=== PATIENT | male | born 1970 | race Caucasian/White ===

== ENCOUNTER 2017-10-01 08:04 | Inpatient (IN) | payer OTHER ==
[2017-10-01] MEDS ORDERED: Succinylcholine Chloride 20 MG/ML 10 ml SYRINGE FS ONE (08:15)
[2017-10-01] MEDS ORDERED: Propofol 1,000 MG/100 ML VIAL IV ONE ×2 (08:28→13:49)
[2017-10-01 08:42] LABS: Hematocrit 45.8 % (42.0-52.0); Red Blood Cell (RBC) Count 4.69 mill/uL (4.70-6.10); White Blood Cell (WBC) Count 16.9 thou/uL (4.8-10.8)
[2017-10-01 08:46] LABS: Prothrombin Time 13.3 SEC (12.0-14.7)
[2017-10-01] MEDS ORDERED: Midazolam HCl 5 mg/ml Vial ONE (08:48)
[2017-10-01 08:51] LABS: PTT 22.8 SEC (22.9-36.1)
[2017-10-01 08:52] LABS: ALT (SGPT) 28 U/L (8-55); AST (SGOT) 28 U/L (5-34); Alkaline Phosphatase 112 U/L (40-150); Anion Gap 20 mmol/L (10-20); BUN (Urea Nitrogen) 14 mg/dL (8.9-20.6); Bilirubin, Total 0.3 mg/dL (0.2-1.2); CK (CPK) 265 U/L (30-200); Calc. Creatinine Clearance 0 mL/min (70-130); Calcium 9.1 mg/dL (7.8-10.44); Carbon Dioxide 20 mmol/L (22-29); Chloride 103 mmol/L (98-107); Estimated GFR-MDRD 48; Globulin 3.5 g/dL (2.4-3.5); Lactic Acid - Sepsis 6.7 mmol/L (0.5-2.2); Protein, Total 8.1 g/dL (6.0-8.3)
[2017-10-01 08:56] LABS: Troponin I Less than 0.010 ng/mL (< 0.028)
[2017-10-01] MEDS ORDERED: Fentanyl 20 MCG/ML 250 ML ONE (09:25)
[2017-10-01 09:31] LABS: Band 4 % (5-11); Metamyelocyte 1 % (0-0); Reactive Lymphocytes 3 % (0-10)
--- NOTE | 2017-10-01 09:31 | CT ---
CT OF THE BRAIN WITHOUT CONTRAST: Date: 10/01/17 COMPARISON: None. HISTORY: Altered mental status with vomiting. TECHNIQUE: Multiple contiguous axial images were obtained in a CT of the brain without contrast. FINDINGS: The brain is normal in morphology and attenuation without focal lesions or confluent areas of infarct ion. There is no evidence of hydrocephalus, intracranial hemorrhage, or extra-axial fluid collection. The calvarium and overlying soft tissues are unremarkable. The visualized paranasal sinuses and masto id air cells are well aerated. IMPRESSION: No evidence of acute intracranial abnormality. POS: [facility]
[2017-10-01 09:32] LABS: Neutrophil 42 % (42-75)
[2017-10-01 09:39] LABS: Oxyhemoglobin 97.5 % (94.0-97.0); Sodium 143 mmol/L (135-148)
[2017-10-01 09:42] LABS: Mechanical Tidal Volume 500 ml; Mode TRANSPORT VENT; Modified Allen's Test POSITIVE; Vent YES
--- NOTE | 2017-10-01 09:47 | CT ---
CT OF THE CHEST WITH CONTRAST CT OF THE ABDOMEN AND PELVIS WITH CONTRAST: Date: 10/01/17 COMPARISON: None. HISTORY: Altered mental status with nausea and vomiting. TECHNIQUE: 1. Multiple contiguous axial images were obtained in a CT of the chest with contrast. Coronal reform ats were performed. 2. Multiple contiguous axial images were obtained in a CT of the abdomen and pelvis with contrast. C oronal reformats were performed. FINDINGS: CT CHEST: Opacities are seen in the posterior aspect of the left lung which may represent atelectasis or infilt rates. No pneumothorax or pleural effusion seen. There is an endotracheal tube with its tip just abov e the gisselle. Fluid is seen within the trachea just beneath the endotracheal tube. The heart is normal in size without focal cardiac abnormality. No hilar or mediastinal lymphadenopath y seen. Chest wall soft tissues are unremarkable. Degenerative changes are seen in the spine. CT ABDOMEN/PELVIS: The liver, gallbladder, kidneys, adrenal glands, spleen, and pancreas are unremarkable. No free air, free fluid, or stranding changes are seen in the abdomen or pelvis. A Gomes catheter decompresses the urinary bladder. The large and small bowel are unremarkable. The ap pendix is normal. No abdominal or pelvic lymphadenopathy seen. The chest wall soft tissues are unremarkable. The bones of the pelvis are unremarkable. Degenerative changes are seen in the lumbar spine. IMPRESSION: 1. Bibasilar atelectasis versus infiltrates. 2. No evidence of acute intra-abdominal/pelvic abnormality. POS: [facility]
[2017-10-01] MEDS ORDERED: Azithromycin 500 MG VIAL ONE (10:02)
[2017-10-01 10:07] LABS: Bilirubin Negative (Negative); Blood, Urine Small (Negative); Glucose, Urine (Dipstick) 250 mg/dL (Negative); Ketone, Urine Negative (Negative); Nitrite Negative (Negative); Protein, Urine (Dipstick) 100 mg/dL (Neg-Trace); Urobilinogen 0.2 mg/dL (0.2-1.0)
[2017-10-01 10:12] LABS: Bacteria/HPF None Seen HPF (None Seen); RBC/HPF 0-3 HPF (0-3); Squamous Epithelial 0-3 HPF (0-3); WBC/HPF 0-3 HPF (0-3)
[2017-10-01] MEDS ORDERED: cefTRIAXone\\ROCEPHIN 2 GM, Admixture Fee 1 EACH in Sodium Chloride 0.9% 100 ML IVPB SCH (10:15)
[2017-10-01 10:26] LABS: Amphetamine Not Detected (NotDetected); Methadone Not Detected (NotDetected); Methamphetamine Not Detected (NotDetected)
[2017-10-01 10:31] LABS: Hyaline Casts/LPF 7-10 HYALINE CAST LPF (0-3 Hyaline)
[2017-10-01] MEDS ORDERED: Ondansetron HCl/PF 4 MG/2 ML Vial ONE (10:35)
--- NOTE | 2017-10-01 10:47 | RAD ---
SINGLE VIEW OF CHEST: Date: 10/01/17 HISTORY: Nausea, vomiting, and shortness of breath. FINDINGS: Single view of the chest shows normal sized cardiomediastinal silhouette. An endotracheal tube is see n with its tip between the clavicles. A NG tube can be visualized down to the lower mediastinum. Ther e is no evidence of consolidation, mass, or pleural effusion. IMPRESSION: No evidence of acute cardiopulmonary disease. POS: [facility]
[2017-10-01] MEDS ORDERED: Lorazepam 2 MG/ML VIAL ONE ×2 (11:25→13:31)
--- NOTE | 2017-10-01 11:41 | HP ---
DATE OF ADMISSION: 10/01/2017 PRIMARY CARE PHYSICIAN: The patient if from out of town. CHIEF COMPLAINT: Nausea, vomiting with altered mentation. HISTORY OF PRESENT ILLNESS: The patient is a 47-year-old white male with peptic ulcer disease, hyper tension, and chronic pain syndrome who was brought in to the emergency room with generalized weakness along with nausea and vomiting and altered mentation. The patient has been in [place] since 07/20/2017. Over the last 2 days, the patient has naus ea, vomiting, and diarrhea. He has been feeling generally weak and fatigued. He was unable to speak and get out of his car at work for which he was brought in by his coworkers to the emergency room. He was confused; however, was responding to questions by nodding his head. His O2 saturation in the emergency room was in 50s to 60s. He was subsequently intubated and placed on mechanical ventilation . At this time, he is awake and answers by nodding his head. The family at the bedside. His ABGs s howed pH of 7.2 with pCO2 of 61, pO2 of 237 with bicarbonate of 23.5. PAST MEDICAL HISTORY: 1. Peptic ulcer disease with EGD earlier this year. 2. Hypertension. 3. Chronic pain syndrome. 4. Anxiety, on Xanax. PAST SURGICAL HISTORY: 1. Multiple back surgeries. 2. Right eye surgery. 3. Biceps reconstruction. 4. EGD earlier this year. ALLERGIES: The patient is allergic to PENICILLIN and DILAUDID. CURRENT HOME MEDICATIONS: Family to bring the accurate list of medication. SOCIAL HISTORY: He chews tobacco, drinks alcohol socially, no drug use. FAMILY HISTORY: The spouse cannot recall any heart disease in his family. REVIEW OF SYSTEMS: Cannot be obtained from the patient due to current clinical status. PHYSICAL EXAMINATION: VITAL SIGNS: On ER arrival showed temperature 98.4, respirations 26, pulse rate of 143, O2 saturatio n 60% on room air with blood pressure 189/102. GENERAL: A 47-year-old male, weight approximately 102 kilograms, in no apparent distress, intubated on the vent. He is awake, follows commands. HEENT: Head atraumatic, normocephalic. Sclerae anicteric. Dry mucous membranes. No oral lesion. NECK: Supple, no JVD appreciated. No carotid bruit. LUNGS: Showed bibasilar crackles with diffuse rhonchi. No significant wheezing. HEART: S1, S2 present. Regular rate and rhythm, tachycardic. No rubs or gallops appreciated. ABDOMEN: Soft. There is tenderness in the left lower quadrant. No rebound, guarding, no costoverte bral angle tenderness. EXTREMITIES: No edema or calf tenderness. NEUROLOGIC/PSYCHIATRY: Examination is limited due to current clinical status. Patient, however, is moving all of his extremities and following commands appropriately. SKIN: Warm and dry. LYMPH NODES: No palpable lymph nodes in the neck. PERIPHERAL VASCULAR: Radial pulses palpable bilaterally. MUSCULOSKELETAL: No joint swelling or tenderness. LABORATORY FINDINGS: CBC showed WBC 16.9, hemoglobin 15.4, hematocrit 43.8, platelet count of 401. PT/INR in normal range, PTT 22.8. ABGs as discussed above. Chemistries showed sodium 140, potassium 3.4, chloride 103, bicarbonate 20, BUN 14, creatinine 1.55, glucose of 281. CK was 265. Troponins were negative. Lactic acid was 6.7. Urinalysis was negative for WBC or bacteria. Urine drug screen was positive for benzodiazepines. Please note that patient is on benzos at home. The flu testing w as negative. Chest x-ray by my review showed scattered bilateral infiltrate, especially at bases. 1. CT scan of the brain was negative for acute findings. 2. CT scan of the chest and abdomen and pelvis with contrast showed bibasilar atelectasis versus inf iltrate without any acute findings. 3. EKG by my review showed sinus tachycardia with nonspecific ST-T wave changes. IMPRESSION: 1. Severe sepsis with acute organ dysfunction. Possibilities include bilateral pneumonia versus sig moid diverticulitis. 2. Acute hypoxic and hypercapnic respiratory failure. 3. Metabolic acidosis/lactic acidosis. 4. Hypokalemia. 5. Acute kidney injury, probably secondary to sepsis. 6. Hyperglycemia, rule out diabetes mellitus type 2. 7. A 2-3 days history of nausea, vomiting, and diarrhea, rule out infectious etiology. 8. Hypertension. 9. Chronic pain syndrome on chronic narcotics. 10. Anxiety disorder on benzodiazepines. 11. Tobacco dependence. 12. Penicillin allergy. PLAN: The patient will be monitored in the Intensive Care Unit setting. Critical care and GI will b e consulted. Stool workup will be sent. Hemoglobin A1c will be ordered. IV hydration. Empiric ant ibiotics to cover for pneumonia and suspected diverticulitis. Ventilation sedation protocol. We karmen de luna repeat ABGs and chest x-ray in a.m. The patient will require 3-4 days for stabilization. Plan of care was discussed with the family and the patient in detail. They stated understanding.
[2017-10-01 12:10] LABS: Magnesium 1.8 mg/dL (1.6-2.6)
[2017-10-01 12:17] LABS: Troponin I 0.015 ng/mL (< 0.028)
[2017-10-01] MEDS ORDERED: Acetaminophen 325 MG TAB PO PRN (12:24)
[2017-10-01] MEDS ORDERED: Ondansetron ODT 4 MG TAB SL PRN (12:24)
[2017-10-01] MEDS ORDERED: Sodium Chloride 0.9% 1,000 ML IV SCH ×2 (12:24→13:03)
[2017-10-01] MEDS ORDERED: Ondansetron HCl/PF 4 MG/2 ML Vial IVP PRN (12:24)
[2017-10-01 12:32] LABS: Hemoglobin A1c 5.4 % (4.0-6.0)
[2017-10-01] MEDS ORDERED: FLU VACC QS2017-18 36 mo. & older 0.5 ML SYRINGE IM ONE (12:45)
[2017-10-01] MEDS ORDERED: Sedation Protocol FS ONE (13:03)
[2017-10-01] MEDS ORDERED: Ondansetron ODT 4 MG TAB PO PRN (13:03)
[2017-10-01] MEDS ORDERED: Acetaminophen 325 MG/10.15 ML UDCUP PO PRN (13:03)
[2017-10-01] MEDS ORDERED: Vancomycin HCl 1 GM in Premix Bag 1 BAG IVPB SCH (13:03)
[2017-10-01] MEDS ORDERED: Lacri-Lube Opth Oint 3.5 GM TUBE EA EYE PRN (13:03)
[2017-10-01] MEDS ORDERED: Acetaminophen 650 MG Suppository PR PRN (13:03)
[2017-10-01] MEDS: Rocuronium Bromide 50 MG/5 ML VIAL IVP PRN ×2 (13:09→16:09)
[2017-10-01 13:38] LABS: Oxyhemoglobin 93.1 % (94.0-97.0); Sodium 146 mmol/L (135-148)
[2017-10-01 13:40] LABS: Mechanical Tidal Volume 500 ml; Modified Allen's Test POSITIVE; Vent YES
[2017-10-01 13:41] LABS: Mode SIMV; Pressure Support 10 cmH2O
[2017-10-01] MEDS ORDERED: ISOVUE-370 76%-LOCM 1 ML ONE (13:49)
[2017-10-01] MEDS ORDERED: Pantoprazole 40 MG VIAL IVP SCH (14:00)
[2017-10-01] MEDS ORDERED: Acetaminophen 650 MG/20.3 ML UDCUP PO PRN (14:16)
[2017-10-01] MEDS ORDERED: Lorazepam 2 MG/ML VIAL SLOW IVP PRN (14:18)
[2017-10-01] MEDS ORDERED: DISCONTINUE PREVIOUS NARCOTIC PAIN MEDICATIONS AND BENZODIAZEPINES FS SCH (14:18)
[2017-10-01] MEDS ORDERED: Fentanyl 20 MCG/ML 250 ML IVPB SCH (14:18)
[2017-10-01] MEDS ORDERED: Morphine 4 MG/ML VIAL SLOW IVP PRN (14:20)
--- NOTE | 2017-10-01 14:27 | CON ---
DATE OF CONSULTATION: 10/01/2017 Thirty-five minutes critical care time. REASON FOR CONSULTATION: Acute respiratory failure. HISTORY OF PRESENT ILLNESS: This is a 47-year-old male who apparently eating at work today began vom iting and aspirated and developed acute respiratory failure. He required intubation in the emergency room due to refractory hypoxemia. PAST MEDICAL HISTORY: Essentially unremarkable prior to admission aside from anxiety. PAST SURGICAL HISTORY: None. ALLERGIES: PENICILLIN. MEDICATIONS PRIOR TO ADMISSION: He was taking Xanax. SOCIAL HISTORY: Dips snuff. Does not smoke, does not consume alcohol. He works in [employer]. He is currently doing so at [employer]. He is based out of [place]. He has a fiancee who is traveling with him and they are currently living out of extended stay hotel. REVIEW OF SYSTEMS: Cannot be obtained as the patient is intubated. PHYSICAL EXAMINATION: VITAL SIGNS: Pulse 102, blood pressure 95/60, O2 sat 93%, respiratory rate 22. GENERAL: He is currently intubated and sedated on mechanical ventilation. HEENT: Pupils react. Sclerae anicteric. Oropharynx clear. NECK: No JVD. LUNGS: Inspiratory crackles bilaterally. CARDIOVASCULAR: S1, S2, slightly tachycardic. ABDOMEN: Soft, nontender, nondistended. EXTREMITIES: No clubbing, cyanosis, or edema. LABORATORY DATA: Flu test was negative. Urinalysis shows proteinuria, glucosuria. White blood cell count 16.9, hematocrit 45.8, platelet count 401 with 42% neutrophils, 4% bands. INR 1.0, pH 7.20, p CO2 61, pO2 of 237. Sodium 140, potassium 3.4, chloride 103, CO2 20, BUN 14, creatinine 1.5, glucose 281. Lactate 6.7. CPK 265. ASSESSMENT: 1. Gastroenteritis. 2. Severe volume depletion. 3. Acute respiratory failure requiring mechanical ventilation. 4. Bilateral pneumonia on CT scan. 5. Hyperglycemia. PLAN: The patient needs more fluid. He is being treated with broad spectrum IV antibiotics. He is currently on metronidazole, Levaquin, and vancomycin, which was adequate cover to most organisms. I have adjusted his ventilator parameters including increasing his PEEP. He will be followed closely. I spoke with his fiancee at the bedside.
[2017-10-01] MEDS: Sodium Chloride 0.9% 1,000 ML IV SCH ×2 (14:43→21:19)
[2017-10-01] MEDS ORDERED: Vancomycin HCl 1.5 GM in Sodium Chloride 0.9% 250 ML 300 ML IVPB SCH (15:00)
[2017-10-01 15:47] LABS: Troponin I 0.021 ng/mL (< 0.028)
--- NOTE | 2017-10-01 16:19 | CON ---
DATE OF CONSULTATION: 10/01/2017 HISTORY OF PRESENT ILLNESS: The patient is a 47-year-old male who reports a several day hi story of nausea, vomiting, and diarrhea. Sounds like he has had problems with vomiting in the past. He has undergone an upper endoscopy in [place] in the recent past and was found to have some gastrit is and possibly small ulcers. He started on Dexilant and his vomiting seemed to improve. He does rosen ve occasional vomiting though when he takes chronic pain medicine for his back. He has not lost any weight. He has not been on any recent antibiotics. He has not traveled outside the country. PAST MEDICAL HISTORY: Includes peptic ulcer disease, hypertension, chronic back pain. PAST SURGICAL HISTORY: Includes multiple back surgeries, right eye surgery, biceps reconstruction an d upper endoscopy. ALLERGIES: Include PENICILLIN, DILAUDID. HOME MEDICATIONS: Unobtainable as the patient has not brought his list and he is on the ventilator. He is on morphine 3 times a day. SOCIAL HISTORY: Does not smoke, but dips. He drinks rarely. FAMILY HISTORY: Negative for GI or liver disease. REVIEW OF SYSTEMS: Unobtainable. PHYSICAL EXAMINATION: VITAL SIGNS: Stable. He is afebrile. HEENT: Shows an oral gastric tube and an orotracheal tube. NECK: Supple. CHEST: Clear. CARDIOVASCULAR: Regular rate and rhythm. ABDOMEN: Soft, slightly tender or slightly grimaces with deep palpation. RECTAL: Deferred. EXTREMITIES: Normal. NEUROLOGIC: Nonfocal. LABORATORY: Shows a white blood cell count 16.9, hemoglobin 15.4, hematocrit 45.8. PT is 13.3 with an INR of 1.0. Chemistries show potassium 3.4, CO2 of 20, creatinine 1.55, glucose 281. Urinalysis shows 250 glucose, 100 protein, small blood, 0-3 wbc's. Toxicology screen shows positive for benzodi azepines. ASSESSMENT: 1. Sepsis. 2. Nausea, vomiting, and diarrhea -- suspect possible GI side effects from heavy chronic narcotic us e. 3. History of peptic ulcer disease. RECOMMENDATIONS: 1. Stool for Clostridium difficile. 2. Stool studies. 3. Will follow with you.
[2017-10-01] MEDS: Propofol 1,000 MG/100 ML VIAL IV PRN ×2 (17:37→20:59)
[2017-10-01] MEDS: metroNIDAZOLE 500 MG in Premix Bag 1 BAG IVPB SCH ×2 (17:37→21:16)
[2017-10-01] MEDS: Pantoprazole 40 MG VIAL IVP SCH (20:37)
[2017-10-01] MEDS: Heparin 5,000 UNITS/ML VIAL SC SCH (20:37)
[2017-10-02 05:33] LABS: #Lymphocytes 1.6 thou/uL (1.20-3.40); #Monocytes 0.6 thou/uL (0.11-0.59); #Neutrophils 9.1 thou/uL (1.40-6.50); %Basophils 0.2 % (0.0-1.0); %Eosinophils 0.2 % (0.0-10.0); %Lymphocytes 13.7 % (21.0-51.0); %Monocytes 5.2 % (0.0-10.0); Hematocrit 33.5 % (42.0-52.0); Mean Platelet Volume 7.5 fL (7.4-10.4); Red Blood Cell (RBC) Count 3.41 mill/uL (4.70-6.10); White Blood Cell (WBC) Count 11.3 thou/uL (4.8-10.8)
[2017-10-02 05:55] LABS: ALT (SGPT) 19 U/L (8-55); AST (SGOT) 21 U/L (5-34); Alkaline Phosphatase 67 U/L (40-150); Anion Gap 13 mmol/L (10-20); BUN (Urea Nitrogen) 14 mg/dL (8.9-20.6); Bilirubin, Total 0.5 mg/dL (0.2-1.2); Calc. Creatinine Clearance 140 mL/min (70-130); Calcium 8.2 mg/dL (7.8-10.44); Carbon Dioxide 19 mmol/L (22-29); Chloride 114 mmol/L (98-107); Estimated GFR-MDRD 84; Globulin 2.4 g/dL (2.4-3.5); Magnesium 1.5 mg/dL (1.6-2.6); Phosphorus 1.9 mg/dL (2.3-4.7); Protein, Total 5.7 g/dL (6.0-8.3)
[2017-10-02] MEDS: metroNIDAZOLE 500 MG in Premix Bag 1 BAG IVPB SCH (06:11)
[2017-10-02] MEDS ORDERED: Potassium Chloride 40 MEQ in Premix Bag 1 BAG IVPB PRN (06:28)
[2017-10-02] MEDS ORDERED: Magnesium Oxide 400 MG TAB PO PRN ×2 (06:28)
[2017-10-02] MEDS ORDERED: Potassium Chloride 40 MEQ in Sodium Chloride 0.9% 250 ML 250 ML IVPB PRN (06:28)
[2017-10-02] MEDS ORDERED: Potassium Phosphate 12 MMOL in Sodium Chloride 0.9% 250 ML 250 ML IV PRN (06:28)
[2017-10-02] MEDS ORDERED: Potassium Phosphate 9 MMOL in Sodium Chloride 0.9% 100 ML IVPB PRN (06:28)
[2017-10-02] MEDS ORDERED: Potassium Phosphate 15 MMOL in Sodium Chloride 0.9% 250 ML 250 ML IV PRN (06:28)
[2017-10-02] MEDS ORDERED: CCU ELECTROLYTE REPLACEMENT PROTOCOL FS PRN (06:28)
[2017-10-02] MEDS ORDERED: Potassium Chloride 20 MEQ TAB PO PRN (06:28)
[2017-10-02] MEDS ORDERED: Magnesium 2 GM/NS 0.9% 100 ML 2 GM in Premix Bag 1 BAG IVPB PRN (06:28)
[2017-10-02 06:46] LABS: Oxyhemoglobin 97.4 % (94.0-97.0); Sodium 144 mmol/L (135-148)
[2017-10-02 06:48] LABS: Mechanical Tidal Volume 500 ml; Mode SIMV/PS; Modified Allen's Test POSITIVE; Pressure Support 10 cmH2O; Vent YES
--- NOTE | 2017-10-02 08:21 | PRG ---
DATE OF SERVICE: 10/02/2017 Thirty-five minutes critical care time. Mr. George is awake, alert, and able to communicate via hand gestures this morning. He is on a Vers ed drip and a propofol drip. PHYSICAL EXAMINATION: VITAL SIGNS: On exam, his temperature is 98.7, pulse 84, blood pressure 122/85. 24 hour intake 3817 , output 1850. HEENT: Unremarkable. NECK: No JVD. LUNGS: Somewhat diminished breath sounds at both bases, but no rhonchi or wheezes. CARDIAC: S1 and S2 regular. ABDOMEN: Soft, nontender. EXTREMITIES: No edema. LABORATORY DATA: White blood cell count 11.3, hematocrit 33.5, platelet count 185 with 80% neutrophi ls. The pH is 7.43, pCO2 31, pO2 142 on SIMV rate 22, tidal volume 500, PEEP 10, pressure support 10 , FiO2 40%. Sodium 142, potassium 3.5, chloride 114, CO2 19, anion gap is 9, BUN 14, creatinine 0.9, glucose 91. Magnesium 1.5, phosphorus 1.9, albumin 3.3. Chest x-ray shows small bilateral effusions. ASSESSMENT: 1. Bilateral lower lobe pneumonia. 2. Acute respiratory failure requiring mechanical ventilation. 3. Sepsis. 4. Alcohol abuse. 5. No evidence of pancreatitis by laboratory testing. PLAN: 1. Spontaneous breathing trial and reassess for potential for extubation. 2. Continue the Levaquin, vancomycin and Flagyl. 3. Discontinue the Zemuron. 4. Replace electrolytes.
--- NOTE | 2017-10-02 08:29 | RAD ---
PORTABLE AP CHEST XRAY: DATE: 10/02/17. HISTORY: Daily followup. Patient on ventilator. COMPARISON: 10/01/17. FINDINGS: Postsurgical changes related to anterior cervical fusion are again present. Endotracheal tube and na sogastric tubes remain in place and unchanged in position. Cardiac silhouette and pulmonary vasculat ure are within normal limits for the portable technique of the study. The lungs remain clear. There has been no interval change from the prior study. IMPRESSION: Stable chest. POS: [facility]
[2017-10-02] MEDS ORDERED: DC Sedation Protocol FS ONE (09:01)
[2017-10-02] MEDS: Sodium Chloride 0.9% 1,000 ML IV SCH ×2 (09:42→17:07)
[2017-10-02] MEDS: Heparin 5,000 UNITS/ML VIAL SC SCH ×2 (09:42→21:27)
[2017-10-02] MEDS: Pantoprazole 40 MG VIAL IVP SCH ×2 (09:43→21:17)
[2017-10-02] MEDS: Ondansetron HCl/PF 4 MG/2 ML Vial IVP PRN ×2 (12:29→17:00)
--- NOTE | 2017-10-02 13:23 | PRG ---
DATE OF SERVICE: 10/02/2017 SUBJECTIVE: The patient is feeling well today. He has been extubated. He is hungry. He is having no GI issues. OBJECTIVE: VITAL SIGNS: Temperature 98.5, pulse 118, respiratory rate 8. CHEST: Clear. CARDIOVASCULAR: Regular rate and rhythm. ABDOMEN: Benign. LABORATORY DATA: Shows a chloride 114, CO2 19, phosphorus 1.9, magnesium 1.5, total protein is 5.7, albumin is 3.3. CBC shows a white blood cell count 11.3, hemoglobin 11.6, hematocrit 33.5. ASSESSMENT: 1. Nausea, vomiting, and diarrhea -- this may have been an acute gastroenteritis, but seems to be re solving. 2. Sepsis. 3. Respiratory failure -- resolved. RECOMMENDATIONS: 1. Feeding trial. 2. Consider outpatient workup for chronic GI problems when he returns to [place]. 3. We will sign off.
--- NOTE | 2017-10-02 13:36 | PDOC.PN ---
- Subjective Encounter Start Date: 10/02/17 Encounter Start Time: 11:15 Subjective: got extubated, doing well - Objective Resuscitation Status: Resuscitation Status FULL:Full Resuscitation MAR Reviewed: Yes Vital Signs & Weight: Vital Signs (12 hours) Temp Pulse Resp BP Pulse Ox 10/02/17 13:16 125 H 14 10/02/17 12:00 99 10/02/17 09:11 108 H 12 94 L 10/02/17 08:00 98.5 F 108 H 18 98 10/02/17 07:54 95 10/02/17 07:30 85 125/80 10/02/17 07:00 98.5 F 10/02/17 06:00 22 H 10/02/17 05:00 98.7 F 10/02/17 04:00 22 H 10/02/17 03:15 100 10/02/17 02:18 90 111/73 10/02/17 02:00 22 H Weight Admit Weight 231 lb 7.766 oz Weight 231 lb 7.766 oz Most Recent Monitor Data Heart Rate from ECG 117 NIBP 160/82 NIBP BP-Mean 103 Respiration from ECG 11 SpO2 95 I&O: 10/01/17 10/02/17 10/03/17 06:59 06:59 06:59 Intake Total 3817.3 8.9 Output Total 1850 243 Balance 1967.3 -234.1 Result Diagrams: 10/02/17 04:11 10/02/17 04:11 Additional Labs: Accuchecks 10/02/17 10/01/17 10/01/17 04:06 20:40 18:30 POC Glucose 100 87 85 Phys Exam - Physical Examination HEENT: PERRLA, moist MMs Neck: no JVD, supple Respiratory: no wheezing, no rales Cardiovascular: RRR, no significant murmur Gastrointestinal: soft, non-tender, positive bowel sounds Musculoskeletal: no edema, pulses present Neurological: non-focal, moves all 4 limbs Psychiatric: A&O x 3 Dx/Plan (1) Acute respiratory failure with hypoxia and hypercarbia Code(s): J96.01 - ACUTE RESPIRATORY FAILURE WITH HYPOXIA; J96.02 - ACUTE RESPIRATORY FAILURE WITH HYPERCAPNIA Status: Resolved (2) PNA (pneumonia) Code(s): J18.9 - PNEUMONIA, UNSPECIFIED ORGANISM Status: Suspected Qualifiers: Pneumonia type: due to unspecified organism Laterality: bilateral (3) Acute encephalopathy Code(s): G93.40 - ENCEPHALOPATHY, UNSPECIFIED Status: Resolved (4) Alcohol abuse Code(s): F10.10 - ALCOHOL ABUSE, UNCOMPLICATED Status: Chronic (5) HTN (hypertension) Code(s): I10 - ESSENTIAL (PRIMARY) HYPERTENSION Status: Chronic Qualifiers: Hypertension type: essential hypertension Qualified Code(s): I10 - Essential (primary) hypertension (6) PUD (peptic ulcer disease) Code(s): K27.9 - PEPTIC ULC, SITE UNSP, UNSP AC OR CHR, W/O HEMOR OR PERF Status: Chronic (7) Chronic pain syndrome Code(s): G89.4 - CHRONIC PAIN SYNDROME Status: Chronic (8) Gastroenteritis Code(s): K52.9 - NONINFECTIVE GASTROENTERITIS AND COLITIS, UNSPECIFIED Status : Resolved (9) Metabolic acidosis Code(s): E87.2 - ACIDOSIS Status: Acute - Plan got extubated this am, doing well -: is oriented well now -: oral diet -: is on very broad spectrum antibiotics -: nebs, likely has glucose intolerance * . Review of Systems - Medications/Allergies Allergies/Adverse Reactions: Allergies Allergy/AdvReac Type Severity Reaction Status Date / Time Penicillins Allergy Verified 10/01/17 10:10 Medications: Current Medications Acetaminophen (Tylenol) 650 mg NJ Q4H PRN PRN Reason: Headache/Fever or Pain Acetaminophen (Tylenol Elixir) 650 mg PO Q6H PRN PRN Reason: Fever > 101 or Mild Pain Last Admin: 10/01/17 18:23 Dose: 650 mg Albuterol/Ipratropium (Duoneb) 3 ml NEB [id number] PRN PRN Reason: SOB &/or Wheezing Albuterol/Ipratropium (Duoneb) 3 ml NEB [id number] STORM Last Admin: 10/02/17 13:16 Dose: 3 ml Heparin Sodium (Porcine) (Heparin) 5,000 units SC BID STORM Last Admin: 10/02/17 09:42 Dose: 5,000 units Hydralazine HCl (Apresoline) 10 mg SLOW IVP Q4H PRN PRN Reason: SBP Greater Than 180 Sodium Chloride (Normal Saline 0.9%) 1,000 mls @ 150 mls/hr IV .Q6H40M STORM Last Admin: 10/02/17 09:42 Dose: 1,000 mls Potassium Chloride 40 meq/ (Sodium Chloride) 270 mls @ 135 mls/hr IVPB ASDIR PRN PRN Reason: FOR SERUM K+ 2.5 - 3.5 Potassium Chloride 40 meq/ (Device) 100 mls @ 50 mls/hr IVPB ASDIR PRN PRN Reason: FOR SERUM K+ 2.5 - 3.5 Magnesium Sulfate 1 gm/ Sodium (Chloride) 102 mls @ 102 mls/hr IV PRN PRN PRN Reason: MAG LEVEL 1.4 - 2.0 Magnesium Sulfate 2 gm/ Device 100 mls @ 100 mls/hr IVPB ASDIR PRN PRN Reason: MAGNESIUM < 1.4 Potassium Phosphate 9 mmol/ (Sodium Chloride) 103 mls @ 25.75 mls/hr IVPB ASDIR PRN PRN Reason: Phosphate 1.0-1.8 Potassium Phosphate 12 mmol/ (Sodium Chloride) 254 mls @ 63.5 mls/hr IV ASDIR PRN PRN Reason: Serum phosphate 0.5-0.9 Potassium Phosphate 15 mmol/ (Sodium Chloride) 255 mls @ 63.75 mls/hr IV ASDIR PRN PRN Reason: Serum Phos < 0.5 Levofloxacin (Levaquin) 500 mg PO 0600 STORM Lorazepam (Ativan) 2 mg SLOW IVP Q6H PRN PRN Reason: Anxiety/Agitation Magnesium Oxide (Magnesium Oxide) 400 mg PO BIDPRN PRN PRN Reason: FOR SERUM MAG 1.4 - 2.0 Magnesium Oxide (Magnesium Oxide) 800 mg PO PRN PRN PRN Reason: FOR SERUM MAG < 1.4 Metronidazole (Flagyl) 500 mg PO TID [facility] Mineral Oil/White Petrolatum (Lacri-Lube Ointment) 0 gm EA EYE PRN PRN PRN Reason: Dry Eyes Miscellaneous Medication (Pharmacy To Dose) 0 each IVPB ASDIR PRN PRN Reason: PHARMACY TO DOSE ANTIBIOTICS Miscellaneous Medication (Phos-Nak) 1 pkt PO TIDPRN PRN PRN Reason: FOR PHOS LEVEL 1.0 - 1.8 Last Admin: 10/02/17 07:23 Dose: 1 pkt Miscellaneous Medication (Phos-Nak) 2 pkt PO TIDPRN PRN PRN Reason: FOR PHOS LEVEL 0.5 - 1.0 Morphine Sulfate (Morphine) 2 mg SLOW IVP Q4H PRN PRN Reason: Chest Pain/BP Elevations Ondansetron HCl (Zofran Odt) 4 mg PO Q6H PRN PRN Reason: Nausea/Vomiting Ondansetron HCl (Zofran) 4 mg IVP Q6H PRN PRN Reason: Nausea/Vomiting Last Admin: 10/02/17 12:29 Dose: 4 mg Pantoprazole Sodium (Protonix) 40 mg IVP Q12HR [facility] Last Admin: 10/02/17 09:43 Dose: 40 mg Potassium Chloride (K-Dur) 40 meq PO ASDIR PRN PRN Reason: FOR SERUM K+ 2.5 - 3.5 Potassium Chloride (Klor-Con) 40 meq PER TUBE ASDIR PRN PRN Reason: FOR SERUM K+ 2.5-3.5 Sodium Chloride (Flush - Normal Saline) 10 ml IVF Q12HR [facility] Last Admin: 10/02/17 09:43 Dose: 10 ml
[2017-10-02] MEDS: Morphine 4 MG/ML VIAL SLOW IVP PRN (13:47)
--- NOTE | 2017-10-02 13:48 | PQF ---
DATE: 10-02-17 ATTN: DR. YOLANDA STAUFFER Please exercise your independent, professional judgment in responding to the clarification form. Clinical indicators are provided on the bottom of this form for your review Please check appropriate box(s): [ x ] Aspiration Pneumonia [ ] Empirically treating Gram Negative Pneumonia [ ] Other diagnosis [ ] Unable to determine In addition, please specify: Present on Admission (POA): [ x ] Yes [ ] No [ ] Unable to determine For continuity of documentation, please document condition throughout progress notes and discharge summary. Thank You. CLINICAL INDICATORS - SIGNS / SYMPTOMS / LABS ER: PRESENTS FOR EVALUATION OF VOMITING, WHEN PATIENT PLACED ON MONITOR O2 SAT WAS LOW 60'S ER DIAGNOSIS: SEPSIS, PNEUMONIA, RESPIRATORY FAILURE H&P: SEVERE SEPSIS WITH ACUTE ORGAN DYSFUNCTION. POSSIBILITIES INCLUDE BILATERAL PNEUMONIA VS SIGMOID DIVERTICULITIS CONSULT NOTE DR. PURCELL 10-02-17: BILATERAL PNEUMONIA ON CT SCAN WBC: 10-01-17: 16.9, 10-02-17: 11.3 LACTIC ACID: 10-01-17: 6.7 TEMP: 10-01-17: 99.9, 102.7, 103.2, 100.1 RISK FACTORS: H&P: CAME IN WITH GENERALIZED WEAKNESS ALONG WITH NAUSEA, VOMITING, ALTERED MENTATION TREATMENTS: PULMONARY CONSULT (ER ) CEFTRIAXONE, AZITHROMYCIN (10-01-17) FLAGYL, LEVAQUIN, VANCOMYCIN RT ( VENT/O2) (This form is maintained as a part of the permanent medical record) 2014 [employer] All Rights Reserved SANDRA [email or web address] Office: [phone] [facility]ENTERPromise
--- NOTE | 2017-10-02 13:50 | RAD ---
THREE VIEWS LEFT SHOULDER: DATE: 10/02/17. HISTORY: Injury to left shoulder after a fall. FINDINGS: There is minimal left acromioclavicular joint osteoarthritis with minimal left glenohumeral osteoarth ropathy. No fracture or dislocation is seen involving the left shoulder. Postsurgical changes relat ed to anterior cervical fusion in the lower cervical spine are noted. Degenerative changes are seen in the spine. There is what appears to be remote fracture of the left anterior 2nd rib. IMPRESSION: 1. No acute osseous abnormality involving the left shoulder. 2. Minimal left acromioclavicular joint osteoarthritis and left glenohumeral osteoarthropathy. 3. Remote left anterior 2nd rib fracture. POS: [facility]
--- NOTE | 2017-10-02 13:53 | RAD ---
THREE VIEWS RIGHT SHOULDER: DATE: 10/02/17. HISTORY: Right shoulder injury after a fall. FINDINGS: There are postsurgical changes related to anterior cervical fusion. Degenerative changes are seen in the thoracic spine. No fracture or dislocation is seen involving the right shoulder. IMPRESSION: No acute osseous abnormality right shoulder. POS: [facility]
[2017-10-02] MEDS: metroNIDAZOLE 500 MG TAB PO SCH ×2 (14:14→21:15)
[2017-10-02] MEDS: Lorazepam 2 MG/ML VIAL SLOW IVP PRN (14:27)
[2017-10-02] MEDS ORDERED: Amlodipine 10 MG TAB PO SCH (15:30)
[2017-10-02] MEDS ORDERED: Diazepam 5 MG TAB PO PRN (17:43)
[2017-10-02] MEDS ORDERED: Thiamine HCl 200 MG/2 ML VIAL IM SCH (17:45)
[2017-10-02] MEDS ORDERED: Diazepam 5 MG TAB PO SCH (18:00)
[2017-10-02] MEDS ORDERED: HYDROcodone/Acetaminophen 10/325 mg Tablet PO SCH (18:00)
[2017-10-02] MEDS ORDERED: Lidocaine 2% Viscous Solution 10 ML, Aluminum & Magnesium Hydroxide 30 ML SSW SCH ×2 (20:45)
[2017-10-02] MEDS: Metoprolol Tartrate 50 MG TAB PO SCH (21:15)
[2017-10-02] MEDS: ALPRAZolam 1 MG TAB PO SCH (21:15)
[2017-10-03] MEDS: Lorazepam 2 MG/ML VIAL SLOW IVP PRN ×2 (00:40→12:42)
[2017-10-03 03:01] LABS: Oxyhemoglobin 97.3 % (94.0-97.0); Sodium 141 mmol/L (135-148)
[2017-10-03 03:03] LABS: Modified Allen's Test POSITIVE
[2017-10-03 03:04] LABS: Mode BIPAP 20/10
[2017-10-03] MEDS ORDERED: Diazepam 5 MG TAB PO PRN (04:00)
[2017-10-03 04:20] LABS: Oxyhemoglobin 95.6 % (94.0-97.0); Sodium 140 mmol/L (135-148)
[2017-10-03 04:26] LABS: Modified Allen's Test POSITIVE
[2017-10-03 04:27] LABS: Mode BIPAP 20/10
[2017-10-03] MEDS: Sodium Chloride 0.9% 1,000 ML IV SCH ×5 (04:31→17:09)
[2017-10-03 05:08] LABS: #Lymphocytes 0.6 thou/uL (1.20-3.40); #Monocytes 0.7 thou/uL (0.11-0.59); #Neutrophils 10.7 thou/uL (1.40-6.50); %Basophils 0.2 % (0.0-1.0); %Eosinophils 0.2 % (0.0-10.0); %Lymphocytes 5.3 % (21.0-51.0); %Monocytes 5.6 % (0.0-10.0); Hematocrit 36.5 % (42.0-52.0); Mean Platelet Volume 7.7 fL (7.4-10.4)
[2017-10-03 05:18] LABS: ALT (SGPT) 21 U/L (8-55); AST (SGOT) 29 U/L (5-34); Alkaline Phosphatase 87 U/L (40-150); Anion Gap 13 mmol/L (10-20); BUN (Urea Nitrogen) 6 mg/dL (8.9-20.6); Bilirubin, Total 0.4 mg/dL (0.2-1.2); Calc. Creatinine Clearance 177 mL/min (70-130); Calcium 8.9 mg/dL (7.8-10.44); Carbon Dioxide 25 mmol/L (22-29); Chloride 105 mmol/L (98-107); Estimated GFR-MDRD Greater than 90; Globulin 2.9 g/dL (2.4-3.5); Magnesium 1.9 mg/dL (1.6-2.6); Phosphorus 2.9 mg/dL (2.3-4.7); Protein, Total 6.8 g/dL (6.0-8.3)
--- NOTE | 2017-10-03 06:01 | PDOC.EVN ---
Event Note - Event Note Event Note: RN called - Pt on NIPPV. Will change Atbx back to IV
[2017-10-03] MEDS: metroNIDAZOLE 500 MG in Premix Bag 1 BAG IVPB SCH ×3 (06:23→21:25)
[2017-10-03] MEDS: Ondansetron HCl/PF 4 MG/2 ML Vial IVP PRN ×2 (07:55→17:04)
--- NOTE | 2017-10-03 08:18 | PRG ---
DATE OF SERVICE: 10/03/2017 Mr. George developed hypercapnic respiratory insufficiency last night which was felt likely to sleep apnea. He was placed on BiPAP and did well throughout the night. Of note, it looks like he is regu larly taking Xanax prior to sleep at night. He is also taking scheduled [place] during the day for chr onic pain in his shoulder. PHYSICAL EXAMINATION: VITAL SIGNS: His temperature is 98.9 with a T-max of 100.4, pulse 111, blood pressure 159/97, 24 elise r intake is 3876, output 3557. HEENT: Unremarkable. NECK: No JVD. LUNGS: Inspiratory crackles in both bases. CARDIAC: S1 and S2 regular. ABDOMEN: Soft. EXTREMITIES: No edema. Chest x-ray - I personally reviewed chest x-ray, it shows bibasilar infiltrates, worse on the right t jane the left. LABORATORY DATA: PH 7.22, pCO2 68, pO2 120 that was last night on BiPAP. White blood cell count 12, hematocrit 36.5, platelet count 196. Sodium 139, potassium 4.4, chloride 105, CO2 25, BUN 6, creati nine 0.7, glucose 83. ASSESSMENT: 1. Bilateral pneumonia. 2. Acute respiratory failure requiring mechanical ventilation. 3. Likely severe obstructive sleep apnea. 4. Narcotic and benzodiazepine use. RECOMMENDATIONS: 1. Physical therapy consult. 2. Increase activity as tolerated. 3. Continue metronidazole and Levaquin. 4. Keep in ICU for the time being until he is stronger and he has stopped having episodes of hyperca pnic respiratory failure at night.
[2017-10-03] MEDS: Pantoprazole 40 MG VIAL IVP SCH ×2 (08:40→21:26)
[2017-10-03] MEDS: Heparin 5,000 UNITS/ML VIAL SC SCH ×2 (08:41→21:33)
--- NOTE | 2017-10-03 08:48 | RAD ---
RADIOGRAPH OF CHEST SINGLE VIEW: Date: 10/03/17 COMPARISON: 10/02/17. INDICATION: ICU patient, follow-up. FINDINGS: There is patchy opacity of each perihilar region. Cardiac silhouette is accentuated by portable techn ique. Linear density at left lung base indicates atelectasis. No additional significant interval [place] ge identified. There are artifacts overlying the chest, limiting detail. IMPRESSION: Interval development of patchy bilateral predominantly perihilar opacities which may be related to ed efraín. Developing pneumonia not excluded. Continued follow-up warranted. POS: [facility]
[2017-10-03] MEDS ORDERED: HYDROcodone/Acetaminophen 10/325 mg Tablet PO SCH (09:00)
[2017-10-03] MEDS: Morphine 4 MG/ML VIAL SLOW IVP PRN (09:08)
[2017-10-03] MEDS: hydrALAZINE 20 MG/ML VIAL SLOW IVP PRN (10:01)
[2017-10-03] MEDS: Folic Acid 1 MG TAB PO SCH (10:47)
[2017-10-03] MEDS: Multivit, Therapeutic 1 TAB PO SCH (10:47)
[2017-10-03] MEDS: Magnesium Oxide 400 MG TAB PO SCH (10:47)
[2017-10-03] MEDS: Metoprolol Tartrate 50 MG TAB PO SCH ×2 (10:54→21:26)
[2017-10-03] MEDS: Amlodipine 10 MG TAB PO SCH (10:54)
--- NOTE | 2017-10-03 13:45 | PDOC.PN ---
- Subjective Encounter Start Date: 10/03/17 Encounter Start Time: 11:00 Subjective: awake and oriented well now -: on nasal canula now - Objective Resuscitation Status: Resuscitation Status FULL:Full Resuscitation MAR Reviewed: Yes Vital Signs & Weight: Vital Signs (12 hours) Temp Pulse Pulse Pulse Resp BP BP 10/03/17 12:00 98.3 F 10/03/17 11:40 117 H 120 H 177/108 H 169/110 H 10/03/17 08:00 99.3 F 114 H 25 H 10/03/17 07:16 116 H 20 10/03/17 06:00 98.9 F 10/03/17 04:30 112 H 22 H 10/03/17 04:00 20 10/03/17 03:00 100.4 F H Pulse Ox 10/03/17 12:00 10/03/17 11:40 10/03/17 08:00 97 10/03/17 07:16 100 10/03/17 06:00 10/03/17 04:30 97 10/03/17 04:00 98 10/03/17 03:00 Weight Admit Weight 231 lb 7.766 oz Weight 231 lb 7.766 oz Most Recent Monitor Data Heart Rate from ECG 119 NIBP 136/93 NIBP BP-Mean 109 Respiration from ECG 24 SpO2 96 I&O: 10/02/17 10/03/17 10/04/17 06:59 06:59 06:59 Intake Total 3817.3 3876.9 850 Output Total 1850 3557 1730 Balance 1967.3 319.9 -880 Result Diagrams: 10/03/17 03:41 10/03/17 03:41 Phys Exam - Physical Examination HEENT: PERRLA, sclera anicteric Neck: no JVD, supple Respiratory: no wheezing, no rales Cardiovascular: RRR, no significant murmur Gastrointestinal: soft, non-tender, no distention, positive bowel sounds Musculoskeletal: no edema, pulses present Neurological: non-focal, moves all 4 limbs Psychiatric: A&O x 3 Dx/Plan (1) Acute respiratory failure with hypoxia and hypercarbia Code(s): J96.01 - ACUTE RESPIRATORY FAILURE WITH HYPOXIA; J96.02 - ACUTE RESPIRATORY FAILURE WITH HYPERCAPNIA Status: Acute (2) PNA (pneumonia) Code(s): J18.9 - PNEUMONIA, UNSPECIFIED ORGANISM Status: Suspected Qualifiers: Pneumonia type: due to unspecified organism Laterality: bilateral (3) Acute encephalopathy Code(s): G93.40 - ENCEPHALOPATHY, UNSPECIFIED Status: Resolved (4) Alcohol abuse Code(s): F10.10 - ALCOHOL ABUSE, UNCOMPLICATED Status: Chronic (5) HTN (hypertension) Code(s): I10 - ESSENTIAL (PRIMARY) HYPERTENSION Status: Chronic Qualifiers: Hypertension type: essential hypertension Qualified Code(s): I10 - Essential (primary) hypertension (6) PUD (peptic ulcer disease) Code(s): K27.9 - PEPTIC ULC, SITE UNSP, UNSP AC OR CHR, W/O HEMOR OR PERF Status: Chronic (7) Chronic pain syndrome Code(s): G89.4 - CHRONIC PAIN SYNDROME Status: Chronic (8) Gastroenteritis Code(s): K52.9 - NONINFECTIVE GASTROENTERITIS AND COLITIS, UNSPECIFIED Status : Resolved (9) Metabolic acidosis Code(s): E87.2 - ACIDOSIS Status: Acute - Plan bipap use last night, has h/o sleep apnea and noncompliant with cpap at [facility] -: on levaquin and flagyl -: oral diet if cleared by speech, needs to amb and be out of bed, PT eval -: decrease use of narcotics for another 36hrs -: will need outpt sleep study, d/w at bedside * . Review of Systems - Medications/Allergies Allergies/Adverse Reactions: Allergies Allergy/AdvReac Type Severity Reaction Status Date / Time Penicillins Allergy Verified 10/01/17 10:10 Medications: Current Medications Acetaminophen (Tylenol) 650 mg [place] Q4H PRN PRN Reason: Headache/Fever or Pain Acetaminophen (Tylenol Elixir) 650 mg PO Q6H PRN PRN Reason: Fever > 101 or Mild Pain Last Admin: 10/01/17 18:23 Dose: 650 mg Albuterol/Ipratropium (Duoneb) 3 ml NEB [id number] PRN PRN Reason: SOB &/or Wheezing Albuterol/Ipratropium (Duoneb) 3 ml NEB [id number] STORM Last Admin: 10/03/17 07:29 Dose: 3 ml Alprazolam (Xanax) 2 mg PO HS STORM Last Admin: 10/02/17 21:15 Dose: 2 mg Amlodipine Besylate (Norvasc) 10 mg PO DAILY [facility] Last Admin: 10/03/17 10:54 Dose: 10 mg Folic Acid (Folvite) 1 mg PO DAILY [facility] Last Admin: 10/03/17 10:47 Dose: Not Given Heparin Sodium (Porcine) (Heparin) 5,000 units SC BID [facility] Last Admin: 10/03/17 08:41 Dose: 5,000 units Hydralazine HCl (Apresoline) 10 mg SLOW IVP Q4H PRN PRN Reason: SBP Greater Than 180 Last Admin: 10/03/17 10:01 Dose: 10 mg Sodium Chloride (Normal Saline 0.9%) 1,000 mls @ 150 mls/hr IV .Q6H40M [facility] Last Admin: 10/03/17 10:55 Dose: 1,000 mls Potassium Chloride 40 meq/ (Sodium Chloride) 270 mls @ 135 mls/hr IVPB ASDIR PRN PRN Reason: FOR SERUM K+ 2.5 - 3.5 Last Admin: 10/02/17 16:38 Dose: 270 mls Potassium Chloride 40 meq/ (Device) 100 mls @ 50 mls/hr IVPB ASDIR PRN PRN Reason: FOR SERUM K+ 2.5 - 3.5 Magnesium Sulfate 1 gm/ Sodium (Chloride) 102 mls @ 102 mls/hr IV PRN PRN PRN Reason: MAG LEVEL 1.4 - 2.0 Last Admin: 10/02/17 16:39 Dose: 102 mls Magnesium Sulfate 2 gm/ Device 100 mls @ 100 mls/hr IVPB ASDIR PRN PRN Reason: MAGNESIUM < 1.4 Potassium Phosphate 9 mmol/ (Sodium Chloride) 103 mls @ 25.75 mls/hr IVPB ASDIR PRN PRN Reason: Phosphate 1.0-1.8 Potassium Phosphate 12 mmol/ (Sodium Chloride) 254 mls @ 63.5 mls/hr IV ASDIR PRN PRN Reason: Serum phosphate 0.5-0.9 Potassium Phosphate 15 mmol/ (Sodium Chloride) 255 mls @ 63.75 mls/hr IV ASDIR PRN PRN Reason: Serum Phos < 0.5 Levofloxacin 500 mg/ Device 100 mls @ 100 mls/hr IVPB Q24HR [facility] Last Admin: 10/03/17 07:55 Dose: 100 mls Metronidazole 500 mg/ Device 100 mls @ 100 mls/hr IVPB Q8HR [facility] Last Admin: 10/03/17 06:23 Dose: 100 mls Ibuprofen (Motrin) 800 mg PO Q8H PRN PRN Reason: Pain Lorazepam (Ativan) 2 mg SLOW IVP Q6H PRN PRN Reason: Anxiety/Agitation Last Admin: 10/03/17 12:42 Dose: 2 mg Magnesium Oxide (Magnesium Oxide) 400 mg PO BIDPRN PRN PRN Reason: FOR SERUM MAG 1.4 - 2.0 Magnesium Oxide (Magnesium Oxide) 800 mg PO PRN PRN PRN Reason: FOR SERUM MAG < 1.4 Magnesium Oxide (Magnesium Oxide) 400 mg PO DAILY [facility] Last Admin: 10/03/17 10:47 Dose: Not Given Metoprolol Tartrate (Lopressor) 50 mg PO BID [facility] Last Admin: 10/03/17 10:54 Dose: 50 mg Mineral Oil/White Petrolatum (Lacri-Lube Ointment) 0 gm EA EYE PRN PRN PRN Reason: Dry Eyes Miscellaneous Medication (Phos-Nak) 1 pkt PO TIDPRN PRN PRN Reason: FOR PHOS LEVEL 1.0 - 1.8 Last Admin: 10/02/17 07:23 Dose: 1 pkt Miscellaneous Medication (Phos-Nak) 2 pkt PO TIDPRN PRN PRN Reason: FOR PHOS LEVEL 0.5 - 1.0 Morphine Sulfate (Morphine) 2 mg SLOW IVP Q4H PRN PRN Reason: Chest Pain/BP Elevations Last Admin: 10/03/17 09:08 Dose: 2 mg Multivitamins (Theragran) 1 tab PO DAILY [facility] Last Admin: 10/03/17 10:47 Dose: Not Given Ondansetron HCl (Zofran Odt) 4 mg PO Q6H PRN PRN Reason: Nausea/Vomiting Ondansetron HCl (Zofran) 4 mg IVP Q6H PRN PRN Reason: Nausea/Vomiting Last Admin: 10/03/17 07:55 Dose: 4 mg Pantoprazole Sodium (Protonix) 40 mg IVP Q12HR [facility] Last Admin: 10/03/17 08:40 Dose: 40 mg Potassium Chloride (K-Dur) 40 meq PO ASDIR PRN PRN Reason: FOR SERUM K+ 2.5 - 3.5 Potassium Chloride (Klor-Con) 40 meq PER TUBE ASDIR PRN PRN Reason: FOR SERUM K+ 2.5-3.5 Sodium Chloride (Flush - Normal Saline) 10 ml IVF Q12HR [facility] Last Admin: 10/03/17 08:40 Dose: 10 ml Thiamine HCl (Thiamine) 100 mg PO DAILY [facility] Last Admin: 10/03/17 10:47 Dose: Not Given
[2017-10-03] MEDS: Ibuprofen 800 MG TAB PO PRN (21:24)
[2017-10-03] MEDS: ALPRAZolam 1 MG TAB PO SCH (21:24)
[2017-10-04 04:22] LABS: #Eosinphils 0.1 thou/uL (0.0-0.7); #Lymphocytes 1.6 thou/uL (1.20-3.40); #Monocytes 0.5 thou/uL (0.11-0.59); #Neutrophils 6.9 thou/uL (1.40-6.50); %Basophils 0.1 % (0.0-1.0); %Eosinophils 1.4 % (0.0-10.0); %Lymphocytes 17.6 % (21.0-51.0); %Monocytes 5.7 % (0.0-10.0); Hematocrit 33.4 % (42.0-52.0); Mean Platelet Volume 7.2 fL (7.4-10.4); White Blood Cell (WBC) Count 9.1 thou/uL (4.8-10.8)
[2017-10-04 04:24] VITALS: BMI 33.0
[2017-10-04 04:58] LABS: ALT (SGPT) 15 U/L (8-55); AST (SGOT) 19 U/L (5-34); Alkaline Phosphatase 71 U/L (40-150); Anion Gap 8 mmol/L (10-20); BUN (Urea Nitrogen) 6 mg/dL (8.9-20.6); Bilirubin, Total 0.5 mg/dL (0.2-1.2); Calc. Creatinine Clearance 188 mL/min (70-130); Calcium 8.8 mg/dL (7.8-10.44); Carbon Dioxide 31 mmol/L (22-29); Chloride 103 mmol/L (98-107); Estimated GFR-MDRD Greater than 90; Globulin 2.7 g/dL (2.4-3.5); Magnesium 2.3 mg/dL (1.6-2.6); Phosphorus 2.1 mg/dL (2.3-4.7)
[2017-10-04] MEDS: Ibuprofen 800 MG TAB PO PRN ×2 (05:17→14:11)
[2017-10-04] MEDS: metroNIDAZOLE 500 MG in Premix Bag 1 BAG IVPB SCH (05:18)
[2017-10-04] MEDS: Sodium Chloride 0.9% 1,000 ML IV SCH ×3 (05:18→08:36)
[2017-10-04] MEDS: Ondansetron HCl/PF 4 MG/2 ML Vial IVP PRN ×2 (05:23→13:12)
[2017-10-04] MEDS: Metoprolol Tartrate 50 MG TAB PO SCH ×2 (08:04→20:40)
[2017-10-04] MEDS: Amlodipine 10 MG TAB PO SCH (08:04)
[2017-10-04] MEDS: Pantoprazole 40 MG VIAL IVP SCH ×2 (08:05→20:30)
[2017-10-04] MEDS: Heparin 5,000 UNITS/ML VIAL SC SCH ×2 (08:06→20:35)
[2017-10-04] MEDS: Folic Acid 1 MG TAB PO SCH (08:07)
[2017-10-04] MEDS: Magnesium Oxide 400 MG TAB PO SCH (08:07)
[2017-10-04] MEDS: Multivit, Therapeutic 1 TAB PO SCH (08:07)
--- NOTE | 2017-10-04 08:41 | RAD ---
PORTABLE CHEST: HISTORY: CCU followup. Dyspnea. COMPARISON: 10/03/17. FINDINGS: The bibasilar infiltrates and/or atelectasis have improved. Lungs appear well aerated and clear toda y. IMPRESSION: Improvement in the lung bases when compared to yesterday's exam. POS: [facility]
--- NOTE | 2017-10-04 10:09 | PRG ---
DATE OF SERVICE: 10/04/2017 SUBJECTIVE: Rico George is awake, alert, and responsive. He is complaining of shoulder pain fro m a fall. PHYSICAL EXAMINATION: VITAL SIGNS: Temperature 97, blood pressure 106/71, O2 sat 93%. CHEST: Decreased breath sounds, no wheezing. CARDIAC: Normal S1 and S2. No gallops. NEUROLOGIC: Awake, alert, responsive. LABORATORY DATA: White count 9,000, hemoglobin and hematocrit 11 and 33, platelet count normal. Jane ctrolytes are normal. Blood culture is growing coagulase negative Staph, which is probably a contamination. IMPRESSION: 1. Morbid obesity, probably sleep apnea. 2. History of fall. 3. Pneumonia, improved. 4. Chronic pain. PLAN: Switch him over to oral antibiotics and PT. He will be transferred outside on nocturnal BiPAP . We will follow.
--- NOTE | 2017-10-04 11:53 | PDOC.PN ---
- Subjective Encounter Start Date: 10/04/17 Encounter Start Time: 10:45 Subjective: awake, no sob, oriented well - Objective Resuscitation Status: Resuscitation Status FULL:Full Resuscitation MAR Reviewed: Yes Vital Signs & Weight: Vital Signs (12 hours) Temp Pulse Resp Pulse Ox 10/04/17 08:00 97.5 F L 107 H 20 98 10/04/17 07:06 96 10/04/17 07:05 105 H 14 96 10/04/17 04:00 99.0 F 10/04/17 02:11 93 22 H 94 L 10/04/17 01:09 97 20 98 10/04/17 00:00 99.5 F Weight Admit Weight 231 lb 7.766 oz Weight 230 lb 13.184 oz Most Recent Monitor Data Heart Rate from ECG 96 NIBP 132/90 NIBP BP-Mean 108 Respiration from ECG 20 SpO2 97 I&O: 10/03/17 10/04/17 10/05/17 06:59 06:59 06:59 Intake Total 3876.9 5476 489 Output Total 3557 4950 435 Balance 319.9 526 54 Result Diagrams: 10/04/17 04:00 10/04/17 04:00 Phys Exam - Physical Examination HEENT: PERRLA, moist MMs Neck: no JVD, supple Respiratory: no wheezing, no rales Cardiovascular: RRR, no significant murmur Gastrointestinal: soft, non-tender, positive bowel sounds Musculoskeletal: no edema, pulses present Neurological: non-focal, moves all 4 limbs Psychiatric: A&O x 3 Dx/Plan (1) Acute respiratory failure with hypoxia and hypercarbia Code(s): J96.01 - ACUTE RESPIRATORY FAILURE WITH HYPOXIA; J96.02 - ACUTE RESPIRATORY FAILURE WITH HYPERCAPNIA Status: Resolved (2) PNA (pneumonia) Code(s): J18.9 - PNEUMONIA, UNSPECIFIED ORGANISM Status: Acute Qualifiers: Pneumonia type: due to unspecified organism Laterality: bilateral (3) Acute encephalopathy Code(s): G93.40 - ENCEPHALOPATHY, UNSPECIFIED Status: Resolved (4) Alcohol abuse Code(s): F10.10 - ALCOHOL ABUSE, UNCOMPLICATED Status: Chronic (5) HTN (hypertension) Code(s): I10 - ESSENTIAL (PRIMARY) HYPERTENSION Status: Chronic Qualifiers: Hypertension type: essential hypertension Qualified Code(s): I10 - Essential (primary) hypertension (6) PUD (peptic ulcer disease) Code(s): K27.9 - PEPTIC ULC, SITE UNSP, UNSP AC OR CHR, W/O HEMOR OR PERF Status: Chronic (7) Chronic pain syndrome Code(s): G89.4 - CHRONIC PAIN SYNDROME Status: Chronic (8) Gastroenteritis Code(s): K52.9 - NONINFECTIVE GASTROENTERITIS AND COLITIS, UNSPECIFIED Status : Resolved (9) Metabolic acidosis Code(s): E87.2 - ACIDOSIS Status: Acute - Plan tx pt to medical floor -: is on levaquin and flagyl -: to amb in hallway -: oral solid diet -: dc plan in 24hrs if stable * . Review of Systems - Medications/Allergies Allergies/Adverse Reactions: Allergies Allergy/AdvReac Type Severity Reaction Status Date / Time Penicillins Allergy Verified 10/01/17 10:10 Medications: Current Medications Acetaminophen (Tylenol) 650 mg [place] Q4H PRN PRN Reason: Headache/Fever or Pain Acetaminophen (Tylenol Elixir) 650 mg PO Q6H PRN PRN Reason: Fever > 101 or Mild Pain Last Admin: 10/01/17 18:23 Dose: 650 mg Albuterol/Ipratropium (Duoneb) 3 ml NEB [id number] PRN PRN Reason: SOB &/or Wheezing Albuterol/Ipratropium (Duoneb) 3 ml NEB [id number] STORM Last Admin: 10/04/17 07:05 Dose: 3 ml Alprazolam (Xanax) 2 mg PO HS [facility] Last Admin: 10/03/17 21:24 Dose: 2 mg Amlodipine Besylate (Norvasc) 10 mg PO DAILY [facility] Last Admin: 10/04/17 08:04 Dose: 10 mg Folic Acid (Folvite) 1 mg PO DAILY [facility] Last Admin: 10/04/17 08:07 Dose: Not Given Heparin Sodium (Porcine) (Heparin) 5,000 units SC BID [facility] Last Admin: 10/04/17 08:06 Dose: 5,000 units Hydralazine HCl (Apresoline) 10 mg SLOW IVP Q4H PRN PRN Reason: SBP Greater Than 180 Last Admin: 10/03/17 10:01 Dose: 10 mg Potassium Chloride 40 meq/ (Sodium Chloride) 270 mls @ 135 mls/hr IVPB ASDIR PRN PRN Reason: FOR SERUM K+ 2.5 - 3.5 Last Admin: 10/02/17 16:38 Dose: 270 mls Potassium Chloride 40 meq/ (Device) 100 mls @ 50 mls/hr IVPB ASDIR PRN PRN Reason: FOR SERUM K+ 2.5 - 3.5 Magnesium Sulfate 1 gm/ Sodium (Chloride) 102 mls @ 102 mls/hr IV PRN PRN PRN Reason: MAG LEVEL 1.4 - 2.0 Last Admin: 10/02/17 16:39 Dose: 102 mls Magnesium Sulfate 2 gm/ Device 100 mls @ 100 mls/hr IVPB ASDIR PRN PRN Reason: MAGNESIUM < 1.4 Potassium Phosphate 9 mmol/ (Sodium Chloride) 103 mls @ 25.75 mls/hr IVPB ASDIR PRN PRN Reason: Phosphate 1.0-1.8 Potassium Phosphate 12 mmol/ (Sodium Chloride) 254 mls @ 63.5 mls/hr IV ASDIR PRN PRN Reason: Serum phosphate 0.5-0.9 Potassium Phosphate 15 mmol/ (Sodium Chloride) 255 mls @ 63.75 mls/hr IV ASDIR PRN PRN Reason: Serum Phos < 0.5 Sodium Chloride (Normal Saline 0.9%) 1,000 mls @ 50 mls/hr IV .Q20H [facility] Last Admin: 10/04/17 08:36 Dose: Not Given Ibuprofen (Motrin) 800 mg PO Q8H PRN PRN Reason: Pain Last Admin: 10/04/17 05:17 Dose: 800 mg Levofloxacin (Levaquin) 750 mg PO 0600 [facility] Stop: 10/10/17 06:01 Lorazepam (Ativan) 2 mg SLOW IVP Q6H PRN PRN Reason: Anxiety/Agitation Last Admin: 10/03/17 12:42 Dose: 2 mg Magnesium Oxide (Magnesium Oxide) 400 mg PO BIDPRN PRN PRN Reason: FOR SERUM MAG 1.4 - 2.0 Magnesium Oxide (Magnesium Oxide) 800 mg PO PRN PRN PRN Reason: FOR SERUM MAG < 1.4 Magnesium Oxide (Magnesium Oxide) 400 mg PO DAILY [facility] Last Admin: 10/04/17 08:07 Dose: Not Given Metoprolol Tartrate (Lopressor) 50 mg PO BID [facility] Last Admin: 10/04/17 08:04 Dose: 50 mg Mineral Oil/White Petrolatum (Lacri-Lube Ointment) 0 gm EA EYE PRN PRN PRN Reason: Dry Eyes Miscellaneous Medication (Phos-Nak) 1 pkt PO TIDPRN PRN PRN Reason: FOR PHOS LEVEL 1.0 - 1.8 Last Admin: 10/02/17 07:23 Dose: 1 pkt Miscellaneous Medication (Phos-Nak) 2 pkt PO TIDPRN PRN PRN Reason: FOR PHOS LEVEL 0.5 - 1.0 Morphine Sulfate (Morphine) 2 mg SLOW IVP Q4H PRN PRN Reason: Chest Pain/BP Elevations Last Admin: 10/03/17 09:08 Dose: 2 mg Multivitamins (Theragran) 1 tab PO DAILY [facility] Last Admin: 10/04/17 08:07 Dose: Not Given Ondansetron HCl (Zofran Odt) 4 mg PO Q6H PRN PRN Reason: Nausea/Vomiting Ondansetron HCl (Zofran) 4 mg IVP Q6H PRN PRN Reason: Nausea/Vomiting Last Admin: 10/04/17 05:23 Dose: 4 mg Pantoprazole Sodium (Protonix) 40 mg IVP Q12HR [facility] Last Admin: 10/04/17 08:05 Dose: 40 mg Potassium Chloride (K-Dur) 40 meq PO ASDIR PRN PRN Reason: FOR SERUM K+ 2.5 - 3.5 Potassium Chloride (Klor-Con) 40 meq PER TUBE ASDIR PRN PRN Reason: FOR SERUM K+ 2.5-3.5 Sodium Chloride (Flush - Normal Saline) 10 ml IVF Q12HR [facility] Last Admin: 10/04/17 08:05 Dose: 10 ml Thiamine HCl (Thiamine) 100 mg PO DAILY [facility] Last Admin: 10/04/17 08:07 Dose: Not Given
[2017-10-04] MEDS ORDERED: Sodium Chloride 0.9% 10 ML ONE (20:26)
[2017-10-04] MEDS: ALPRAZolam 0.5 MG TAB PO SCH (20:32)
[2017-10-04] MEDS: hydrALAZINE 20 MG/ML VIAL SLOW IVP PRN (23:11)
[2017-10-05] MEDS: Morphine 4 MG/ML VIAL SLOW IVP PRN (00:25)
[2017-10-05] MEDS: Lorazepam 2 MG/ML VIAL SLOW IVP PRN (00:55)
[2017-10-05] MEDS: Sodium Chloride 0.9% 1,000 ML IV SCH (01:06)
[2017-10-05] MEDS: Ondansetron HCl/PF 4 MG/2 ML Vial IVP PRN (05:20)
[2017-10-05 06:04] LABS: #Eosinphils 0.1 thou/uL (0.0-0.7); #Lymphocytes 1.1 thou/uL (1.20-3.40); #Monocytes 0.6 thou/uL (0.11-0.59); #Neutrophils 6.2 thou/uL (1.40-6.50); %Basophils 0.4 % (0.0-1.0); %Lymphocytes 13.9 % (21.0-51.0); %Monocytes 7.3 % (0.0-10.0); Hematocrit 36.6 % (42.0-52.0); Mean Platelet Volume 7.3 fL (7.4-10.4)
[2017-10-05 06:11] LABS: Anion Gap 11 mmol/L (10-20); BUN (Urea Nitrogen) 6 mg/dL (8.9-20.6); Calc. Creatinine Clearance 186 mL/min (70-130); Calcium 9.4 mg/dL (7.8-10.44); Carbon Dioxide 30 mmol/L (22-29); Chloride 103 mmol/L (98-107); Estimated GFR-MDRD Greater than 90
[2017-10-05] MEDS: Potassium Chloride 20 MEQ TAB PO SCH ×2 (08:08→16:04)
[2017-10-05] MEDS: Folic Acid 1 MG TAB PO SCH (09:06)
[2017-10-05] MEDS: Metoprolol Tartrate 50 MG TAB PO SCH ×2 (09:06→20:18)
[2017-10-05] MEDS: Heparin 5,000 UNITS/ML VIAL SC SCH ×2 (09:06→20:21)
[2017-10-05] MEDS: Multivit, Therapeutic 1 TAB PO SCH (09:06)
[2017-10-05] MEDS: Amlodipine 10 MG TAB PO SCH (09:06)
[2017-10-05] MEDS: Pantoprazole 40 MG VIAL IVP SCH (09:07)
[2017-10-05] MEDS ORDERED: Polyethylene Glycol 3350 17 GM Packet PO PRN (10:21)
[2017-10-05] MEDS ORDERED: HYDROcodone/Acetaminophen 5/325 mg Tablet PO PRN (10:27)
[2017-10-05] MEDS ORDERED: Acetaminophen 325 MG TAB PO PRN (10:28)
[2017-10-05] MEDS ORDERED: Famotidine 20 MG TAB PO PRN (10:34)
[2017-10-05] MEDS ORDERED: Docusate 100 MG CAP PO SCH (11:00)
[2017-10-05] MEDS: HYDROcodone/Acetaminophen 5/325 mg Tablet PO PRN ×3 (11:12→21:47)
[2017-10-05] MEDS: Saccharomyces boulardii 250 MG CAP PO SCH (11:12)
[2017-10-05] MEDS ORDERED: cloNIDine 0.1 MG TAB PO PRN (11:59)
--- NOTE | 2017-10-05 14:35 | PRG ---
DATE OF SERVICE: 10/05/2017 SUBJECTIVE: Mr. George is doing better this morning. He is less short of breath, weak. OBJECTIVE: VITAL SIGNS: Sats are 97% on room air, respirations 18, temperature 97 and blood pressure 100/68. CHEST: Decreased breath sounds. No wheezing. CARDIAC: Normal S1 and S2. No gallops. ABDOMEN: Soft. No masses. LABORATORY DATA: White count 8,000, hemoglobin and hematocrit 12 and 36, platelet count is normal. Electrolytes are normal. IMPRESSION: 1. Respiratory failure, probably obstructive sleep apnea. 2. Morbid obesity. 3. Encephalopathy. 4. Pneumonia. 5. Alcohol abuse. PLAN: Continue antibiotics, nebulizer treatments, CPAP. We will follow.
--- NOTE | 2017-10-05 14:39 | PDOC.PN ---
- Subjective Encounter Start Date: 10/05/17 Encounter Start Time: 10:00 Patient seen and examined. No new complaints. No overnight events. Feels weak. Some cough. No BM - Objective Resuscitation Status: Resuscitation Status FULL:Full Resuscitation MAR Reviewed: Yes Vital Signs & Weight: Vital Signs (12 hours) Temp Pulse Resp BP BP Pulse Ox 10/05/17 14:09 100 16 10/05/17 12:00 97.1 F L 101 H 16 140/88 10/05/17 09:06 117 H 10/05/17 08:00 97.4 F L 117 H 18 126/88 96 10/05/17 06:33 110 H 16 10/05/17 04:00 98.4 F 110 H 18 160/90 H 95 Weight Admit Weight 231 lb 7.766 oz Weight 230 lb 13.184 oz Most Recent Monitor Data Heart Rate from ECG 96 NIBP 132/90 NIBP BP-Mean 108 Respiration from ECG 20 SpO2 97 I&O: 10/04/17 10/05/17 10/06/17 06:59 06:59 06:59 Intake Total 5476 3389 Output Total 3920 6935 750 Balance 526 -3546 -750 Result Diagrams: 10/05/17 05:29 10/05/17 05:29 Radiology Reviewed by me: Yes (CXR - improvement) Phys Exam - Physical Examination Constitutional: NAD Respiratory: no wheezing, no rhonchi Scat rales at bases Cardiovascular: RRR, no rub Gastrointestinal: soft, non-tender, positive bowel sounds Musculoskeletal: no edema Neurological: non-focal, moves all 4 limbs Psychiatric: A&O x 3 Dx/Plan - Plan DVT proph w/SCDs IMPRESSION: 1. Acute hypoxic/hypercapnic respiratory failure - s/p Mech Ventilation 2. Sepsis with acute organ dysfunction due to Aspiration Pneumonia/Acute Gastroenteritis 3. [place] 4. Hypokalemia 5. Other issues per H&P PLAN: * Replace Potassium * AM labs * Sleep study as outpt * Cont PO Levaquin * Change PPI to PO * Add Stool softener * Ambulate * DC andino * DC ASE protocol Review of Systems - Review of Systems Gastrointestinal: negative: Nausea, Vomiting, Abdominal Pain, Diarrhea, Constipation, Melena, Hematochezia Genitourinary: negative: Dysuria, Frequency, Incontinence, Hematuria, Retention - Medications/Allergies Allergies/Adverse Reactions: Allergies Allergy/AdvReac Type Severity Reaction Status Date / Time Penicillins Allergy Verified 10/01/17 10:10 Medications: Current Medications Acetaminophen (Tylenol) 650 mg PO Q4H PRN PRN Reason: Headache/Fever or Mild Pain Hydrocodone Bitart/Acetaminophen ([place] 5/325) 1 tab PO QIDPRN PRN PRN Reason: Severe Pain (7-10) Last Admin: 10/05/17 11:12 Dose: 1 tab Albuterol/Ipratropium (Duoneb) 3 ml NEB [id number] [facility] Last Admin: 10/05/17 14:09 Dose: 3 ml Alprazolam (Xanax) 2 mg PO HS [facility] Last Admin: 10/04/17 20:32 Dose: 2 mg Amlodipine Besylate (Norvasc) 10 mg PO DAILY [facility] Last Admin: 10/05/17 09:06 Dose: 10 mg Clonidine (Catapres) 0.1 mg PO Q4H PRN PRN Reason: Systolic BP > 180 Docusate Sodium (Colace) 100 mg PO BID [facility] Famotidine (Pepcid) 20 mg PO BID PRN PRN Reason: indigestion Folic Acid (Folvite) 1 mg PO DAILY [facility] Last Admin: 10/05/17 09:06 Dose: 1 mg Heparin Sodium (Porcine) (Heparin) 5,000 units SC BID [facility] Last Admin: 10/05/17 09:06 Dose: 5,000 units Ibuprofen (Motrin) 800 mg PO Q8H PRN PRN Reason: Pain Last Admin: 10/04/17 14:11 Dose: 800 mg Levofloxacin (Levaquin) 750 mg PO 0600 [facility] Stop: 10/10/17 06:01 Last Admin: 10/05/17 05:49 Dose: 750 mg Lorazepam (Ativan) 2 mg SLOW IVP Q6H PRN PRN Reason: Anxiety/Agitation Last Admin: 10/05/17 00:55 Dose: 2 mg Metoprolol Tartrate (Lopressor) 50 mg PO BID [facility] Last Admin: 10/05/17 09:06 Dose: 50 mg Mineral Oil/White Petrolatum (Lacri-Lube Ointment) 0 gm EA EYE PRN PRN PRN Reason: Dry Eyes Multivitamins (Theragran) 1 tab PO DAILY [facility] Last Admin: 10/05/17 09:06 Dose: 1 tab Ondansetron HCl (Zofran) 4 mg IVP Q6H PRN PRN Reason: Nausea/Vomiting Last Admin: 10/05/17 05:20 Dose: 4 mg Pantoprazole Sodium (Protonix) 40 mg PO HS [facility] Polyethylene Glycol (Miralax) 17 gm PO DAILY PRN PRN Reason: Constipation Potassium Chloride (K-Dur) 20 meq PO BID[facility] Stop: 10/06/17 08:01 Last Admin: 10/05/17 08:08 Dose: 20 meq Saccharomyces Boulardii (Florastor) 250 mg PO 1200 [facility] Last Admin: 10/05/17 11:12 Dose: 250 mg Sodium Chloride (Flush - Normal Saline) 10 ml IVF Q12HR [facility] Last Admin: 10/05/17 11:09 Dose: 10 ml Sodium Chloride (Flush - Normal Saline) 10 ml IVF PRN PRN PRN Reason: Saline Flush Thiamine HCl (Thiamine) 100 mg PO DAILY [facility] Last Admin: 10/05/17 09:06 Dose: 100 mg
[2017-10-05] MEDS: ALPRAZolam 0.5 MG TAB PO SCH (20:19)
[2017-10-05] MEDS: Docusate 100 MG CAP PO SCH (20:20)
[2017-10-05] MEDS: Ibuprofen 800 MG TAB PO PRN (20:40)
[2017-10-06] MEDS: HYDROcodone/Acetaminophen 5/325 mg Tablet PO PRN ×2 (06:04→11:04)
[2017-10-06 06:29] LABS: #Basophils 0.1 thou/uL (0.0-0.2); #Eosinphils 0.4 thou/uL (0.0-0.7); #Lymphocytes 2.2 thou/uL (1.20-3.40); #Monocytes 0.7 thou/uL (0.11-0.59); #Neutrophils 3.6 thou/uL (1.40-6.50); %Eosinophils 5.7 % (0.0-10.0); %Lymphocytes 31.5 % (21.0-51.0); %Monocytes 9.9 % (0.0-10.0); Hematocrit 41.9 % (42.0-52.0); Red Blood Cell (RBC) Count 4.36 mill/uL (4.70-6.10); White Blood Cell (WBC) Count 6.9 thou/uL (4.8-10.8)
[2017-10-06 06:53] LABS: ALT (SGPT) 22 U/L (8-55); AST (SGOT) 20 U/L (5-34); Alkaline Phosphatase 84 U/L (40-150); Anion Gap 11 mmol/L (10-20); BUN (Urea Nitrogen) 10 mg/dL (8.9-20.6); Bilirubin, Total 0.7 mg/dL (0.2-1.2); Calc. Creatinine Clearance 163 mL/min (70-130); Calcium 9.7 mg/dL (7.8-10.44); Carbon Dioxide 30 mmol/L (22-29); Chloride 101 mmol/L (98-107); Estimated GFR-MDRD Greater than 90; Globulin 2.9 g/dL (2.4-3.5); Phosphorus 3.1 mg/dL (2.3-4.7); Protein, Total 6.7 g/dL (6.0-8.3)
[2017-10-06] MEDS: Amlodipine 10 MG TAB PO SCH (08:38)
[2017-10-06] MEDS: Metoprolol Tartrate 50 MG TAB PO SCH (08:38)
--- NOTE | 2017-10-06 09:47 | PRG ---
DATE OF SERVICE: 10/06/2017 He is awake, alert, doing well. He wants to go home. PHYSICAL EXAMINATION: VITAL SIGNS: Temperature 98.2, pulse 98, blood pressure 163/100, O2 sat 98%. HEENT: Unremarkable. NECK: No JVD. CHEST: Clear to auscultation without wheezing. CARDIAC: S1 and S2 regular. ABDOMEN: Soft. EXTREMITIES: No edema. ASSESSMENT: 1. Pneumonia. 2. Status post acute respiratory failure requiring mechanical ventilation. 3. Probable underlying obstructive sleep apnea. 4. Alcohol abuse. PLAN: 1. The patient says he will stop drinking. 2. I think he is stable enough to go home. I would treat him with antibiotics for a total of 10 day s - Axelaquin should be fine. 3. He needs an outpatient sleep study whether it be here or back in [place] where he is from. He is also contemplating just buying an auto CPAP on [employer]. If he does that I would be happy to prog abhishek it. I think there are some insurance issues related to getting the sleep study. He is stable fo r discharge today.
[2017-10-06] MEDS: Multivit, Therapeutic 1 TAB PO SCH (10:11)
[2017-10-06] MEDS: Folic Acid 1 MG TAB PO SCH (10:11)
[2017-10-06] MEDS: Potassium Chloride 20 MEQ TAB PO SCH (10:12)
[2017-10-06] MEDS: Docusate 100 MG CAP PO SCH (10:12)
[2017-10-06] MEDS: Heparin 5,000 UNITS/ML VIAL SC SCH (10:14)
[2017-10-06] MEDS ORDERED: Potassium Chloride 20 MEQ TAB PO SCH (12:00)
[2017-10-06] MEDS: Saccharomyces boulardii 250 MG CAP PO SCH (12:07)
[2017-10-06 13:31] VITALS: BP 137/90; TEMP 98
--- NOTE | 2017-10-06 15:04 | DIS ---
DATE OF ADMISSION: 10/01/2017 DATE OF DISCHARGE: 10/06/2017 DISCHARGE DISPOSITION: Home. FOLLOWUP: 1. Follow up with primary care physician in [place] in 1 week. 2. Follow up with Dr. Collier as scheduled. 3. Base met after 1 week is recommended. Primary care physician is advised to follow. 4. Sleep study as outpatient. 5. Repeat chest x-ray in 4 weeks. Primary care physician to follow. ALLERGIES: PENICILLIN. The patient was seen and examined on the day of discharge. Denies any new complaints. DISCHARGE MEDICATIONS: 1. Levaquin 750 mg daily for the next 5 days. 2. Potassium chloride 20 mEq daily. 3. Florastor 250 mg daily. 4. Clonidine as needed. 5. Albuterol inhaler as needed. Other home medications were resumed including Xanax as needed, [place] 10/325 one tablet t.i.d., Dexila nt 60 mg daily, lisinopril 40 mg daily, Zantac 300 mg daily. INPATIENT CONSULTANTS: Pulmonary, Dr. Collier; Gastroenterology, Dr. Taylor. BRIEF HOSPITAL COURSE: The patient is a 47-year-old male with chronic pain syndrome, on chronic narc otics, chronic anxiety, on p.r.n. Xanax, hypertension, and peptic ulcer disease, [facility] with nausea and vomiting with altered mentation. Please refer to the history and physical dimple ed 10/01/2017 for further details. The patient was admitted to the Intensive Care Unit with the diagnosis of acute hypoxic/hypercapnic r espiratory failure. His O2 saturation in the emergency room was in 50s to 60s requiring subsequent i ntubation. His ABG showed pH 7.2 with pCO2 of 61. Empiric antibiotics were initiated. Due to 2-3 d ay history of nausea, vomiting, and diarrhea, [employer] was also consulted in addition to cr itical care. Stool workup was ordered; however, patient did not have any new episodes of diarrhea. He was subsequently extubated and transferred to the medical floor. He has been cleared by consultan maria del rosario for discharge. His blood culture 1 of 2 showed coagulase negative Staphylococcus, probably contam ination. Influenza testing was negative. FINAL DIAGNOSES: 1. Sepsis with acute organ dysfunction due to aspiration pneumonia/acute gastroenteritis. 2. Acute hypoxic/hypercapnic respiratory failure requiring mechanical ventilation. 3. Obstructive sleep apnea. A sleep study as outpatient is recommended. 4. Chronic pain syndrome, on chronic narcotics. 5. Chronic anxiety, on p.r.n. Xanax. 6. Hypokalemia. 7. Hypophosphatemia. 8. Hypomagnesemia. 9. Metabolic acidosis, resolved. 10. Acute kidney injury, resolved. 11. Two to three day history of nausea, vomiting, and diarrhea on admission; probably secondary to a cute gastroenteritis. 12. Hypertension. 13. Tobacco dependence. 14. Penicillin allergy. 15. History of alcohol use. Plan of care was discussed with the patient in detail. He stated understanding.
== END 2017-10-06 13:46 | disposition home or self-care (01) | DRG 871 ==
LOC: ERS 08:04 → EDBD 08:04 → CCU 10:00 → ONC 10-04 11:41
PROVIDERS: ADMIT Internal Medicine; ATTEND Internal Medicine
PROC: 5A1935Z Respiratory Ventilation, Less than 24 Consecutive Hours (ICD-10-PCS; principal; 2017-10-01)
PROC: 0BH17EZ Insertion of Endotracheal Airway into Trachea, Via Natural or Artificial Opening (ICD-10-PCS; 2017-10-01)
PROC: 0BP1XDZ Removal of Intraluminal Device from Trachea, External Approach (ICD-10-PCS; 2017-10-02)
PROC: 5A09457 Assistance with Respiratory Ventilation, 24-96 Consecutive Hours, Continuous Positive Airway Pressure (ICD-10-PCS; 2017-10-03)
DX: A41.9 Sepsis, unspecified organism (principal); J96.01 Acute respiratory failure with hypoxia; J69.0 Pneumonitis due to inhalation of food and vomit; J96.02 Acute respiratory failure with hypercapnia; G93.41 Metabolic encephalopathy; E87.2 Acidosis; N17.9 Acute kidney failure, unspecified; E66.01 Morbid (severe) obesity due to excess calories; E83.42 Hypomagnesemia; E83.39 Other disorders of phosphorus metabolism; I10 Essential (primary) hypertension; K27.9 Peptic ulcer, site unspecified, unspecified as acute or chronic, without hemorrhage or perforation; K52.9 Noninfective gastroenteritis and colitis, unspecified; R65.20 Severe sepsis without septic shock; E87.6 Hypokalemia; E86.9 Volume depletion, unspecified; F10.10 Alcohol abuse, uncomplicated; G47.33 Obstructive sleep apnea (adult) (pediatric); G89.4 Chronic pain syndrome; F41.9 Anxiety disorder, unspecified; F17.210 Nicotine dependence, cigarettes, uncomplicated; Z68.33 Body mass index [BMI] 33.0-33.9, adult; Z88.5 Allergy status to narcotic agent; Z88.0 Allergy status to penicillin
CPT/HCPCS: 31500; 36415; 36416; 51702; 70450; 71010; 71260; 74177; 80048; 80053; 80306; 81003; 81015; 82010; 82150; 82553; 82805; 83036; 83605; 83690; 83735; 84100; 84484; 85025; 85610; 85730; 86140; 86850; 86900; 86901; 87040; 87149; 93005; 94002; 94640; 94660; 94760; 96365; 96366; 96368; 96375; A4216; C9113; G8978-GP-CK; G8979-GP-CI; G8996-GN-CJ; G8997-GN-CJ; J0360; J0456; J0696; J1644; J1956; J2060; J2250; J2270; J2405; J2704; J3010; J3370; J3475; J3480; J7050; J7620

== ENCOUNTER 2017-11-06 12:57 | Inpatient (IN) | payer OTHER ==
[2017-11-06] MEDS ORDERED: Lorazepam 2 MG/ML VIAL ONE (13:11)
[2017-11-06 13:42] LABS: Actual Bicarbonate (HCO3a) 23.8 mEq/L (22-26); Base Excess (BEa) -6.1 mEq/L (0 (+/-) 2.5); CO2 Tension 69.3 mmHg (35.0-45.0); O2 Tension (PaO2) 130.3 mmHg (80.0-100.0); pH, Arterial 7.15 (7.35-7.45)
[2017-11-06 13:43] LABS: Calcium, Ionized 1.2 mmol/L (1.12-1.30); Hematocrit-ABG 41.2 % (42.0-52.0); Hemoglobin (Hb) 13.4 g/dL (14.0-18.0); Puncture Site RR
[2017-11-06 13:44] LABS: ALV-art Gradient 137.075 (0-20)
[2017-11-06] MEDS ORDERED: Midazolam HCl 5 mg/ml Vial ONE ×2 (13:47→16:40)
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
[2017-11-06] MEDS ORDERED: Fentanyl 100 MCG/2 ML VIAL ONE ×2 (13:55→14:20)
[2017-11-06 14:04] LABS: Bilirubin Negative (Negative); Blood, Urine Small (Negative); Clarity CLOUDY (Clear); Glucose, Urine (Dipstick) 250 mg/dL (Negative); Leukocyte Negative (Negative); Nitrite Negative (Negative); Protein, Urine (Dipstick) 100 mg/dL (Neg-Trace); Specific Gravity, Urine 1.018 (1.002-1.036); Urobilinogen 0.2 mg/dL (0.2-1.0); pH, Urine 5.5 (5.0-9.0)
[2017-11-06 14:08] LABS: #Eosinphils 0.1 thou/uL (0.0-0.7); #Lymphocytes 1.5 thou/uL (1.20-3.40); #Monocytes 0.3 thou/uL (0.11-0.59); %Basophils 0.2 % (0.0-1.0); %Lymphocytes 19.1 % (21.0-51.0); %Monocytes 3.7 % (0.0-10.0); %Neutrophils 76.1 % (42.0-75.0); Hemoglobin 12.9 g/dL (14.0-18.0); Mean Corpuscular Hemoglobin 33.9 pg (27.0-31.0); Mean Corpuscular Volume 96.8 fl (80.0-94.0); Mean Platelet Volume 7.2 fL (7.4-10.4); Platelet Count 216 thou/uL (130-400); RBC Distribution Width 12.3 % (11.5-14.5); White Blood Cell (WBC) Count 7.9 thou/uL (4.8-10.8)
[2017-11-06 14:10] LABS: Bacteria/HPF None Seen HPF (None Seen); Hyaline Casts/LPF 7-10 HYALINE CAST LPF (0-3 Hyaline); Pathc Cast-AUWi Flag 1.76 (0-2.49); RBC/HPF 0-3 HPF (0-3); Squamous Epithelial None Seen HPF (0-3); WBC/HPF None Seen HPF (0-3)
[2017-11-06 14:14] LABS: Amphetamine Not Detected (NotDetected); Cocaine Metabolite Screen Not Detected (NotDetected); Medtox Reader # READER 1; Methamphetamine Not Detected (NotDetected); Opiate Screen Not Detected (NotDetected); Phencyclidine (PCP) Not Detected (NotDetected); THC/Cannabinoid Screen Not Detected (NotDetected)
[2017-11-06 14:15] LABS: Barbiturates Screen Not Detected (NotDetected); Benzodiazepine Screen Detected (NotDetected); Medtox Control Line Valid? VALID (VALID); Methadone Not Detected (NotDetected); Oxycodone Screen Not Detected (NotDetected); Tricyclic Screen Not Detected (NotDetected)
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
[2017-11-06] MEDS ORDERED: fentaNYL Citrate/PF 2,000 MCG in Sodium Chloride 0.9% 60 ML IV SCH (14:30)
[2017-11-06 14:35] LABS: CKMB 0.8 ng/mL (0-6.6); Troponin I Less than 0.010 ng/mL (< 0.028)
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
[2017-11-06 14:40] LABS: ALT (SGPT) 53 U/L (8-55); AST (SGOT) 43 U/L (5-34); Albumin 3.9 g/dL (3.5-5.0); Alkaline Phosphatase 92 U/L (40-150); Anion Gap 14 mmol/L (10-20); BUN (Urea Nitrogen) 11 mg/dL (8.9-20.6); Bilirubin, Total 0.3 mg/dL (0.2-1.2); CK (CPK) 92 U/L (30-200); Calc. Creatinine Clearance 0 mL/min (70-130); Calcium 8.2 mg/dL (7.8-10.44); Carbon Dioxide 20 mmol/L (22-29); Chloride 107 mmol/L (98-107); Estimated GFR-MDRD 63; Globulin 2.5 g/dL (2.4-3.5); Glucose 276 mg/dL (70-105); Protein, Total 6.4 g/dL (6.0-8.3); Sodium 136 mmol/L (136-145)
--- NOTE | 2017-11-06 14:40 | RAD ---
FRONTAL VIEW CHEST: COMPARISON: Earlier same day. CLINICAL HISTORY: Status post intubation. FINDINGS: There is an endotracheal tube with tip at the thoracic inlet. Enteric catheter traverses the abdomen , below the field of view. There is shallow depth of inspiration. Patchy density along each paramed iastinal region and hilar region is present. Otherwise, no significant interval change. IMPRESSION: 1. Bilateral patchy perihilar and paramediastinal opacities which can be on the basis of edema. 2. Supportive tubes are stable-appearing. POS: [facility]
[2017-11-06] MEDS ORDERED: Ondansetron HCl/PF 4 MG/2 ML Vial ONE (14:55)
[2017-11-06 15:42] LABS: Base Excess-Venous -5.2 mmol/L (-30.0-30.0); Bicarbonate (HCO3v) 24.2 mmol/L (1.0-85.0); CO2 Tension (PvCO2) 63.7 mmHg (41.0-51.0); Calcium, Ionized 1.13 mmol/L (1.12-1.32); Hemoglobin - Calc 14.3 g/dL (12.0-18.0); Lactate 1.58 mmol/L (0.50-2.20); O2 Tension (PvO2) 66.4 mmHg (35.0-45.0); Potassium 4.4 mmol/L (3.4-4.7); T. Carbon Dioxide 26.2 mmol/L (1.0-85.0); pH (Venous) 7.188 (7.35-7.45); vO2 Saturation-calc 86.8 % (0.0-100.0)
[2017-11-06] MEDS ORDERED: Sodium Chloride 0.9% 1,000 ML IV SCH (15:45)
[2017-11-06] MEDS ORDERED: ISOVUE-370 76%-LOCM 1 ML ONE (16:30)
[2017-11-06] MEDS ORDERED: Rocuronium Bromide 50 MG/5 ML VIAL ONE (16:31)
[2017-11-06] MEDS ORDERED: Acetaminophen 650 MG Suppository PR PRN (17:17)
[2017-11-06] MEDS ORDERED: hydrALAZINE 20 MG/ML VIAL SLOW IVP PRN (17:17)
[2017-11-06] MEDS ORDERED: Sedation Protocol FS ONE (17:21)
[2017-11-06] MEDS ORDERED: CCU Electrolyte Replacement 1 EACH FS ONE (17:21)
[2017-11-06] MEDS ORDERED: DISCONTINUE PREVIOUS NARCOTIC PAIN MEDICATIONS AND BENZODIAZEPINES FS SCH (17:22)
[2017-11-06] MEDS ORDERED: Magnesium 2 GM/NS 0.9% 100 ML 2 GM in Premix Bag 1 BAG IVPB PRN (17:23)
[2017-11-06] MEDS ORDERED: CCU ELECTROLYTE REPLACEMENT PROTOCOL FS PRN (17:23)
[2017-11-06] MEDS ORDERED: Magnesium Oxide 400 MG TAB PO PRN ×2 (17:23)
[2017-11-06] MEDS ORDERED: Potassium Chloride 40 MEQ in Sodium Chloride 0.9% 250 ML 250 ML IVPB PRN (17:23)
[2017-11-06] MEDS ORDERED: Potassium Phosphate 9 MMOL in Sodium Chloride 0.9% 100 ML IVPB PRN (17:23)
[2017-11-06] MEDS ORDERED: Potassium Phosphate 15 MMOL in Sodium Chloride 0.9% 250 ML 250 ML IV PRN (17:23)
[2017-11-06] MEDS ORDERED: Potassium Chloride 20 MEQ TAB PO PRN (17:23)
[2017-11-06] MEDS ORDERED: Potassium Chloride 40 MEQ in Premix Bag 1 BAG IVPB PRN (17:23)
[2017-11-06] MEDS ORDERED: Potassium Phosphate 12 MMOL in Sodium Chloride 0.9% 250 ML 250 ML IV PRN (17:23)
[2017-11-06] MEDS: Cefepime 1 GM, Admixture Fee 1 EACH in Sterile Water 10 ML SLOW IVP SCH (17:32)
[2017-11-06] MEDS: Vancomycin HCl 1 GM in Premix Bag 1 BAG IVPB SCH (17:36)
[2017-11-06] MEDS: Propofol 1,000 MG/100 ML VIAL IV PRN ×2 (17:36→23:40)
[2017-11-06] MEDS: Sodium Chloride 0.9% 1,000 ML IV SCH (17:38)
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
[2017-11-06 17:51] LABS: Actual Bicarbonate (HCO3a) 24.3 mEq/L (22-26); Base Excess (BEa) -3.6 mEq/L (0 (+/-) 2.5); CO2 Tension 55.5 mmHg (35.0-45.0); Hemoglobin (Hb) 14.7 g/dL (14.0-18.0); O2 Tension (PaO2) 63.7 mmHg (80.0-100.0); pH, Arterial 7.26 (7.35-7.45)
[2017-11-06 17:54] LABS: ALV-art Gradient 152.125 (0-20); Calcium, Ionized 1.2 mmol/L (1.12-1.30); Puncture Site LRA
[2017-11-06] MEDS ORDERED: Pantoprazole 40 MG VIAL IVP SCH (18:00)
[2017-11-06 19:40] LABS: Troponin I 0.031 ng/mL (< 0.028)
[2017-11-06] MEDS: Ondansetron HCl/PF 4 MG/2 ML Vial IVP PRN (19:40)
[2017-11-06] MEDS: Lorazepam 2 MG/ML VIAL SLOW IVP PRN (19:40)
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
[2017-11-06] MEDS ORDERED: Cefepime 1 GM in Sodium Chloride 0.9% 100 ML IVPB SCH (21:00)
[2017-11-06] MEDS ORDERED: Famotidine 20 MG TAB PO SCH (21:00)
[2017-11-06] MEDS: Morphine 2 MG/ML SYRINGE SLOW IVP PRN (22:34)
[2017-11-06 22:36] LABS: Troponin I 0.028 ng/mL (< 0.028)
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
[2017-11-06] MEDS: Promethazine HCl 25 MG/ML VIAL SLOW IVP PRN (23:40)
[2017-11-07] MEDS: Sodium Chloride 0.9% 1,000 ML IV SCH ×3 (00:50→16:40)
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
[2017-11-07] MEDS: Lorazepam 2 MG/ML VIAL SLOW IVP PRN ×3 (01:39→14:07)
[2017-11-07] MEDS: Pantoprazole 40 MG VIAL IVP SCH ×3 (01:39→17:49)
[2017-11-07] MEDS: Ondansetron ODT 4 MG TAB PO PRN (02:56)
[2017-11-07] MEDS: Morphine 2 MG/ML SYRINGE SLOW IVP PRN ×2 (02:56→09:24)
[2017-11-07] MEDS: Cefepime 1 GM, Admixture Fee 1 EACH in Sterile Water 10 ML SLOW IVP SCH ×2 (04:17→16:40)
[2017-11-07 04:44] LABS: Band 3 % (5-11); Lymphocytes 10 % (21-51); MDiff Complete? YES; Mean Corpuscular HGB CONC 34.2 g/dL (32.0-36.0); Mean Corpuscular Hemoglobin 33.2 pg (27.0-31.0); Mean Platelet Volume 7.3 fL (7.4-10.4); Monocytes 3 % (0-10); Neutrophil 84 % (42-75); Platelet Count 193 thou/uL (130-400); RBC Distribution Width 12.7 % (11.5-14.5); Red Blood Cell (RBC) Count 3.61 mill/uL (4.70-6.10); White Blood Cell (WBC) Count 13.3 thou/uL (4.8-10.8)
[2017-11-07] MEDS: Propofol 1,000 MG/100 ML VIAL IV PRN (04:53)
[2017-11-07 05:12] LABS: ALT (SGPT) 40 U/L (8-55); AST (SGOT) 19 U/L (5-34); Albumin 3.6 g/dL (3.5-5.0); Alkaline Phosphatase 74 U/L (40-150); Anion Gap 12 mmol/L (10-20); BUN (Urea Nitrogen) 10 mg/dL (8.9-20.6); Bilirubin, Total 0.6 mg/dL (0.2-1.2); Calc. Creatinine Clearance 111 mL/min (70-130); Calcium 8.4 mg/dL (7.8-10.44); Carbon Dioxide 23 mmol/L (22-29); Chloride 110 mmol/L (98-107); Estimated GFR-MDRD 69; Globulin 2.2 g/dL (2.4-3.5); Glucose 92 mg/dL (70-105); Potassium 3.8 mmol/L (3.5-5.1); Protein, Total 5.8 g/dL (6.0-8.3); Sodium 141 mmol/L (136-145)
[2017-11-07] MEDS: Vancomycin HCl 1 GM in Premix Bag 1 BAG IVPB SCH (05:33)
[2017-11-07] MEDS: Promethazine HCl 25 MG/ML VIAL SLOW IVP PRN ×3 (06:25→19:21)
--- NOTE | 2017-11-07 08:26 | PDOC.PULCC ---
CCU Progress Note: Subj/Obj - Subjective Date: 11/07/17 Time: 08:25 Narrative: intubated, but follows all commands - Objective Allergies/Adverse Reactions: Allergies Allergy/AdvReac Type Severity Reaction Status Date / Time Penicillins Allergy Verified 10/01/17 10:10 Medications: Current Medications Acetaminophen (Tylenol) 650 mg [place] Q4H PRN PRN Reason: Headache/Fever or Mild Pain Albuterol/Ipratropium (Duoneb) 3 ml NEB [id number] [facility] Last Admin: 11/07/17 01:00 Dose: 3 ml Hydralazine HCl (Apresoline) 10 mg SLOW IVP Q4H PRN PRN Reason: Systolic BP > 180 Levetiracetam 500 mg/ Device 100 mls @ 200 mls/hr IVPB BID [facility] Last Admin: 11/06/17 21:25 Dose: 100 mls Cefepime HCl 1 gm/Miscellaneous Medication 1 each/ Sterile Water 10 mls @ 120 mls/hr SLOW IVP 0400,1600 [facility] Last Admin: 11/07/17 04:17 Dose: 10 mls Vancomycin HCl 1 gm/ Device 200 mls @ 200 mls/hr IVPB 0600,1800 [facility] Last Admin: 11/07/17 05:33 Dose: 200 mls Sodium Chloride (Normal Saline 0.9%) 1,000 mls @ 125 mls/hr IV .Q8H [facility] Last Admin: 11/07/17 00:50 Dose: 1,000 mls Fentanyl Citrate (Fentanyl Bolus) 250 mls @ 0 mls/hr IVPB PRN PRN; As Directed PRN Reason: Breakthrough pain Stop: 12/06/17 17:22 Potassium Chloride 40 meq/ (Sodium Chloride) 270 mls @ 135 mls/hr IVPB ASDIR PRN PRN Reason: FOR SERUM K+ 2.5 - 3.5 Potassium Chloride 40 meq/ (Device) 100 mls @ 50 mls/hr IVPB ASDIR PRN PRN Reason: FOR SERUM K+ 2.5 - 3.5 Magnesium Sulfate 1 gm/ Sodium (Chloride) 102 mls @ 102 mls/hr IV PRN PRN PRN Reason: MAG LEVEL 1.4 - 2.0 Magnesium Sulfate 2 gm/ Device 100 mls @ 100 mls/hr IVPB ASDIR PRN PRN Reason: MAGNESIUM < 1.4 Potassium Phosphate 9 mmol/ (Sodium Chloride) 103 mls @ 25.75 mls/hr IVPB ASDIR PRN PRN Reason: Phosphate 1.0-1.8 Potassium Phosphate 12 mmol/ (Sodium Chloride) 254 mls @ 63.5 mls/hr IV ASDIR PRN PRN Reason: Serum phosphate 0.5-0.9 Potassium Phosphate 15 mmol/ (Sodium Chloride) 255 mls @ 63.75 mls/hr IV ASDIR PRN PRN Reason: Serum Phos < 0.5 Lorazepam (Ativan) 1 mg SLOW IVP Q4H PRN PRN Reason: Anxiety/Agitation Lorazepam (Ativan) 2 mg SLOW IVP Q2H PRN PRN Reason: Anxiety to achieve Fish 2-3 Stop: 12/06/17 17:22 Last Admin: 11/07/17 01:39 Dose: 2 mg Magnesium Oxide (Magnesium Oxide) 400 mg PO BIDPRN PRN PRN Reason: FOR SERUM MAG 1.4 - 2.0 Magnesium Oxide (Magnesium Oxide) 800 mg PO PRN PRN PRN Reason: FOR SERUM MAG < 1.4 Miscellaneous Medication (Phos-Nak) 1 pkt PO TIDPRN PRN PRN Reason: FOR PHOS LEVEL 1.0 - 1.8 Miscellaneous Medication (Phos-Nak) 2 pkt PO TIDPRN PRN PRN Reason: FOR PHOS LEVEL 0.5 - 1.0 Morphine Sulfate (Morphine) 2 mg SLOW IVP Q2H PRN PRN Reason: Breakthrough pain Stop: 12/06/17 17:22 Last Admin: 11/07/17 02:56 Dose: 2 mg Ccu Electrolyte (Replacement Protocol) 0 each FS PRN PRN PRN Reason: FOR ELECTROLYTE REPLACEMENT Ondansetron HCl (Zofran Odt) 4 mg PO Q6H PRN PRN Reason: Nausea/Vomiting Last Admin: 11/07/17 02:56 Dose: 4 mg Ondansetron HCl (Zofran) 4 mg IVP Q6H PRN PRN Reason: Nausea/Vomiting Last Admin: 11/06/17 19:40 Dose: 4 mg Pantoprazole Sodium (Protonix) 40 mg IVP 0200,1000,1800 [facility] Last Admin: 11/07/17 01:39 Dose: 40 mg Potassium Chloride (K-Dur) 40 meq PO ASDIR PRN PRN Reason: FOR SERUM K+ 2.5 - 3.5 Potassium Chloride (Klor-Con) 40 meq PER TUBE ASDIR PRN PRN Reason: FOR SERUM K+ 2.5-3.5 Promethazine HCl (Phenergan) 25 mg SLOW IVP Q6H PRN PRN Reason: Nausea Last Admin: 11/07/17 06:25 Dose: 25 mg Propofol (Diprivan) 1,000 mg IV INF PRN; Protocol PRN Reason: TO ACHIEVE FISH SCORE 2-3 Stop: 12/06/17 17:22 Last Admin: 11/07/17 04:53 Dose: 1,000 mg MAR Reviewed: Yes Vital Signs and I&O: Vital Signs Temp 100.5 F H 11/07/17 04:00 Pulse 111 H 11/07/17 02:58 Resp 24 H 11/07/17 06:00 BP 101/54 L 11/07/17 02:58 Pulse Ox 100 11/07/17 01:00 Intake & Output 11/06/17 11/07/17 11/07/17 18:59 06:59 18:59 Intake Total 1989 Output Total 1650 1690 125 Balance -1650 300 -125 Intake: Intake, IV Amount 1989 Propofol 1000 mg (See 160 Protocol) IV INF PRN Rx#: [id number] Sodium Chloride 0.9% 1, 1630 000 ml @ 125 mls/hr IV . Q8H [facility] Rx#:[id number] Vancomycin HCl 1 gm In 200 Premix Bag 1 bag @ 200 mls/hr IVPB 0600,1800 [facility] Rx#:[id number] Output: Gastric Drainage 300 Urine 1400 Output, Gomes 250 1390 125 Other: Voiding Method Indwelling Catheter Indwelling Catheter # Bowel Movements 0 Vent Setting: Vent Adult Resp: Vent Adult Start: 11/06/17 17:22 Freq: CONTINUOUS Status: Active Protocol: Activity Type Activity Date Activity User E-Sign Co-Sign Detail Recorded Client Recorded Date Recorded By Document 11/07/17 02:58 [facility] [id number] 11/07/17 02:58 A 11/07/17 02:58 RT: Ventilator Ventilator Status Charge Maintain Vent Mode SIMV Mandatory Breath Type Volume RR-Set 24 TV Set 500 TV- Delivered 512 FIO2 40 PEEP (cm H2O) 5 Pressure Support 10 PIP (cmH2O) 21 Peak Flow Rate (L/min) 60 Breath Trigger Flow Trigger Setting 2 VE (L/min) 12.5 Heater Temp (degrees C) 37.0 HR (60-100) 111 BP (90/60-140/90) 101/54 SPO2 100 Respiratory Treatment Given No Spontaneous Breathing Test: done (looks like he will likely pass) CCU Progress Note: Exam - Physical Exam Constitutional: NAD HEENT: PERRLA, sclera anicteric Neck: no nodes, no JVD Cardiovascular: RRR, no significant murmur, no rub Respiratory: clear to auscultation bilaterally Gastrointestinal: soft, non-tender Musculoskeletal: no edema Neurological: non-focal, normal sensation, moves all 4 limbs Lymphatic: no nodes Psychiatric: normal affect Skin: no rash CCU Progress Note: Data - Labs Result Diagrams: 11/07/17 04:11 11/07/17 04:11 Lab results: Laboratory Results 11/06/17 11/06/17 11/06/17 17:30 19:04 19:04 WBC RBC Hgb Hct MCV MCH MCHC RDW Plt Count MPV Neutrophils % (Manual) Band Neuts % (Manual) Lymphocytes % (Manual) Monocytes % (Manual) Specimen Type ARTERIAL Puncture Site LRA Bicarbonate Actual 24.3 ABG pH 7.26 L ABG pCO2 55.5 H ABG pO2 63.7 L ABG O2 Sat Calc/[place] 91.6 L ABG O2 Content 18.5 ABG Base Excess -3.6 L ABG Hemoglobin 14.7 ABG Carboxyhemoglobin 1.4 ABG Methemoglobin 0.6 Blane Test POSITIVE A-a O2 Gradient 152.125 H Sodium 139 Potassium 4.4 Chloride 104 Ionized Calcium 1.2 Mode of Support SIMV.PSV Mechanical Rate 20 Inspired O2 40 Tidal Volume 500 Pressure Support 10 PEEP or CPAP 5.0 Carbon Dioxide Anion Gap BUN Creatinine Estimated GFR (MDRD) Glucose Calcium Total Bilirubin AST ALT Alkaline Phosphatase Troponin I 0.031 H Serum Total Protein Albumin Globulin Albumin/Globulin Ratio TSH 3rd Generation 0.7882 Prolactin 11/06/17 11/06/17 11/07/17 19:04 22:03 04:11 WBC RBC Hgb Hct MCV MCH MCHC RDW Plt Count MPV Neutrophils % (Manual) Band Neuts % (Manual) Lymphocytes % (Manual) Monocytes % (Manual) Specimen Type Puncture Site Bicarbonate Actual ABG pH ABG pCO2 ABG pO2 ABG O2 Sat Calc/[place] ABG O2 Content ABG Base Excess ABG Hemoglobin ABG Carboxyhemoglobin ABG Methemoglobin Blane Test A-a O2 Gradient Sodium 141 Potassium 3.8 Chloride 110 H Ionized Calcium Mode of Support Mechanical Rate Inspired O2 Tidal Volume Pressure Support PEEP or CPAP Carbon Dioxide 23 Anion Gap 12 BUN 10 Creatinine 1.14 Estimated GFR (MDRD) 69 Glucose 92 Calcium 8.4 Total Bilirubin 0.6 AST 19 ALT 40 Alkaline Phosphatase 74 Troponin I 0.028 Serum Total Protein 5.8 L Albumin 3.6 Globulin 2.2 L Albumin/Globulin Ratio 1.6 TSH 3rd Generation Prolactin 22.27 H 11/07/17 04:11 WBC 13.3 H RBC 3.61 L Hgb 12.0 L Hct 35.0 L MCV 97.0 H MCH 33.2 H MCHC 34.2 RDW 12.7 Plt Count 193 MPV 7.3 L Neutrophils % (Manual) 84 H Band Neuts % (Manual) 3 L Lymphocytes % (Manual) 10 L Monocytes % (Manual) 3 Specimen Type Puncture Site Bicarbonate Actual ABG pH ABG pCO2 ABG pO2 ABG O2 Sat Calc/[place] ABG O2 Content ABG Base Excess ABG Hemoglobin ABG Carboxyhemoglobin ABG Methemoglobin Blane Test A-a O2 Gradient Sodium Potassium Chloride Ionized Calcium Mode of Support Mechanical Rate Inspired O2 Tidal Volume Pressure Support PEEP or CPAP Carbon Dioxide Anion Gap BUN Creatinine Estimated GFR (MDRD) Glucose Calcium Total Bilirubin AST ALT Alkaline Phosphatase Troponin I Serum Total Protein Albumin Globulin Albumin/Globulin Ratio TSH 3rd Generation Prolactin - ABG Interpretation Attestation: I reviewed and interpreted this ABG. ABG Results: POC Bicarbonate Calc 24.2 mmol/L (1.0-85.0) 11/06/17 15:40 ABG pH 7.26 (7.35-7.45) L 11/06/17 17:30 ABG pCO2 55.5 mmHg (35.0-45.0) H 11/06/17 17:30 ABG O2 Sat Calc/[place] 91.6 % (94.0-100.0) L 11/06/17 17:30 ABG Base Excess -3.6 mEq/L (0 (+/-) 2.5) L 01/18/18 17:30 Interpretation: respiratory acidosis - Radiology Interpretation Chest x-ray Status: image reviewed by me Additional comments: bilateral upper lobe haziness CCU Progress Note: A/P - Problems (1) Acute respiratory failure with hypoxia and hypercarbia Current Visit: No Status: Resolved Code(s): J96.01 - ACUTE RESPIRATORY FAILURE WITH HYPOXIA; J96.02 - ACUTE RESPIRATORY FAILURE WITH HYPERCAPNIA - Time Spent with Patient Time (minutes): 30 - Plan Plan: Hope to extubate after EEG performing SBT hold sedation likely has underlying [place] may need BiPAP after extubation
[2017-11-07] MEDS ORDERED: Pantoprazole 40 MG VIAL IVP SCH (09:00)
[2017-11-07] MEDS: Ondansetron HCl/PF 4 MG/2 ML Vial IVP PRN ×2 (09:25→21:26)
[2017-11-07] MEDS: Acetaminophen 500 MG TAB PO PRN ×2 (10:45→16:42)
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
[2017-11-07] MEDS ORDERED: PROVENTIL INHALER 6.7 G (200 INHALATIONS) INH PRN (13:17)
[2017-11-07] MEDS ORDERED: ALPRAZolam 1 MG TAB PO PRN (13:17)
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
[2017-11-07] MEDS: HYDROcodone/Acetaminophen 10/325 mg Tablet PO SCH ×2 (14:07→20:27)
[2017-11-07] MEDS: Vancomycin HCl 1.5 GM in Sodium Chloride 0.9% 250 ML 300 ML IVPB SCH (17:49)
[2017-11-08] MEDS: Pantoprazole 40 MG VIAL IVP SCH (00:58)
[2017-11-08] MEDS: Promethazine HCl 25 MG/ML VIAL SLOW IVP PRN ×2 (01:13→14:15)
[2017-11-08] MEDS: Sodium Chloride 0.9% 1,000 ML IV SCH ×3 (01:14→17:55)
[2017-11-08] MEDS: Acetaminophen 500 MG TAB PO PRN ×2 (02:30→17:55)
[2017-11-08] MEDS: Cefepime 1 GM, Admixture Fee 1 EACH in Sterile Water 10 ML SLOW IVP SCH ×2 (03:59→16:57)
[2017-11-08 05:00] LABS: ALT (SGPT) 35 U/L (8-55); AST (SGOT) 20 U/L (5-34); Alkaline Phosphatase 74 U/L (40-150); Anion Gap 11 mmol/L (10-20); BUN (Urea Nitrogen) 5 mg/dL (8.9-20.6); Bilirubin, Total 0.7 mg/dL (0.2-1.2); Calc. Creatinine Clearance 143 mL/min (70-130); Calcium 9.2 mg/dL (7.8-10.44); Carbon Dioxide 25 mmol/L (22-29); Chloride 106 mmol/L (98-107); Estimated GFR-MDRD Greater than 90; Globulin 2.9 g/dL (2.4-3.5); Glucose 106 mg/dL (70-105); Potassium 4.2 mmol/L (3.5-5.1); Protein, Total 6.9 g/dL (6.0-8.3); Sodium 138 mmol/L (136-145)
[2017-11-08] MEDS: Vancomycin HCl 1.5 GM in Sodium Chloride 0.9% 250 ML 300 ML IVPB SCH (05:12)
[2017-11-08 05:15] LABS: Band 14 % (5-11); Lymphocytes 8 % (21-51); MDiff Complete? YES; Mean Corpuscular HGB CONC 33.7 g/dL (32.0-36.0); Mean Corpuscular Hemoglobin 33.3 pg (27.0-31.0); Mean Corpuscular Volume 98.7 fl (80.0-94.0); Monocytes 6 % (0-10); Neutrophil 72 % (42-75); Platelet Count 171 thou/uL (130-400); RBC Distribution Width 12.4 % (11.5-14.5); Red Blood Cell (RBC) Count 3.61 mill/uL (4.70-6.10); White Blood Cell (WBC) Count 10.3 thou/uL (4.8-10.8)
[2017-11-08] MEDS ORDERED: Potassium Chloride 20 MEQ TAB PO SCH (08:00)
[2017-11-08] MEDS ORDERED: Multivit, Therapeutic 1 TAB PO SCH (09:00)
[2017-11-08] MEDS: HYDROcodone/Acetaminophen 10/325 mg Tablet PO SCH ×3 (09:39→20:56)
[2017-11-08] MEDS: Lisinopril 20 MG TAB PO SCH (09:39)
[2017-11-08] MEDS: Ondansetron ODT 4 MG TAB PO PRN (09:42)
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
[2017-11-08] MEDS ORDERED: Lidocaine 5% Patch TD SCH (10:00)
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
[2017-11-08] MEDS: Ondansetron HCl/PF 4 MG/2 ML Vial IVP PRN ×2 (12:43→20:57)
[2017-11-08] MEDS: cloNIDine 0.1 MG TAB PO PRN (12:46)
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
[2017-11-08] MEDS: niCARdipine HCl 25 MG in Sodium Chloride 0.9% 250 ML 240 ML IVPB SCH (18:49)
[2017-11-08] MEDS: Famotidine 20 MG TAB PO SCH (20:57)
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
[2017-11-09] MEDS: niCARdipine HCl 25 MG in Sodium Chloride 0.9% 250 ML 240 ML IVPB SCH ×3 (00:21→10:43)
[2017-11-09] MEDS: Lidocaine Patch Removal 1 EACH TOP SCH ×2 (00:21→20:00)
[2017-11-09] MEDS: Ondansetron ODT 4 MG TAB PO PRN ×3 (01:31→15:02)
[2017-11-09] MEDS: Cefepime 1 GM, Admixture Fee 1 EACH in Sterile Water 10 ML SLOW IVP SCH (04:10)
[2017-11-09] MEDS: Sodium Chloride 0.9% 1,000 ML IV SCH ×3 (04:11→16:41)
[2017-11-09 04:25] LABS: #Eosinphils 0.1 thou/uL (0.0-0.7); #Lymphocytes 0.5 thou/uL (1.20-3.40); #Monocytes 0.5 thou/uL (0.11-0.59); #Neutrophils 7.5 thou/uL (1.40-6.50); %Basophils 0.2 % (0.0-1.0); %Eosinophils 0.9 % (0.0-10.0); %Lymphocytes 6.2 % (21.0-51.0); %Monocytes 5.9 % (0.0-10.0); %Neutrophils 86.8 % (42.0-75.0); Hemoglobin 13.5 g/dL (14.0-18.0); Mean Corpuscular HGB CONC 33.8 g/dL (32.0-36.0); Mean Corpuscular Volume 97.5 fl (80.0-94.0); Platelet Count 180 thou/uL (130-400); RBC Distribution Width 11.8 % (11.5-14.5); Red Blood Cell (RBC) Count 4.08 mill/uL (4.70-6.10); White Blood Cell (WBC) Count 8.6 thou/uL (4.8-10.8)
[2017-11-09 04:37] LABS: Albumin 4.4 g/dL (3.5-5.0); Anion Gap 13 mmol/L (10-20); BUN (Urea Nitrogen) Less than 4 mg/dL (8.9-20.6); BUN/Creatinine Ratio 5.48; Calc. Creatinine Clearance 173 mL/min (70-130); Calcium 9.7 mg/dL (7.8-10.44); Carbon Dioxide 31 mmol/L (22-29); Chloride 98 mmol/L (98-107); Estimated GFR-MDRD Greater than 90; Glucose 108 mg/dL (70-105); Magnesium 2.2 mg/dL (1.6-2.6); Phosphorus 3.4 mg/dL (2.3-4.7); Potassium 4.4 mmol/L (3.5-5.1); Sodium 138 mmol/L (136-145)
[2017-11-09] MEDS: Acetaminophen 500 MG TAB PO PRN ×2 (05:39→16:41)
[2017-11-09] MEDS: HYDROcodone/Acetaminophen 10/325 mg Tablet PO SCH (09:29)
[2017-11-09] MEDS: Famotidine 20 MG TAB PO SCH (09:29)
[2017-11-09] MEDS: Lisinopril 20 MG TAB PO SCH (09:30)
[2017-11-09] MEDS: Lidocaine 5% Patch TD SCH (10:03)
--- NOTE | 2017-11-09 11:20 | RAD ---
ABDOMEN 1 VIEW: HISTORY: Nausea and vomiting. FINDINGS: Gas and stool are apparent throughout the colon. The stomach is distended with gas. Opaque catheter /wire overlies the urethra. Phleboliths project over the pelvis. Small bowel gas pattern is nonspecific. IMPRESSION: Gaseous distention of the stomach. No evidence of high-grade obstruction. POS: [facility]
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
--- NOTE | 2017-11-09 12:01 | CT ---
CT ARTERIOGRAM CHEST WITH IV CONTAST AND 3D MIP IMAGING: HISTORY: Dyspnea. Chest pain. COMPARISON: 11/06/17. FINDINGS: There is good contrast opacification into the pulmonary arteries and thoracic aorta. Bovine origin o f the great vessels from the aortic arch is apparent. Atelectasis and scarring of the lung bases and patchy infiltrate within the right upper lobe are similar in appearance to the previous exam. Endot quynh catheter and nasogastric tube have been removed. Other chronic-type findings are stable. IMPRESSION: No CT evidence of pulmonary embolus. POS: [facility]
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
[2017-11-09] MEDS: HYDROcodone/Acetaminophen 7.5/325 mg Tablet PO PRN ×2 (15:03→21:06)
[2017-11-09] MEDS ORDERED: Polyethylene Glycol 3350 17 GM Packet PO PRN (15:39)
[2017-11-09] MEDS ORDERED: Bisacodyl 10 MG SUPP PR PRN (15:51)
[2017-11-09] MEDS ORDERED: Lidocaine 2% Viscous Solution 10 ML, Aluminum & Magnesium Hydroxide 30 ML SSW SCH ×2 (16:15)
[2017-11-09] MEDS ORDERED: ISOVUE-370 76%-LOCM 1 ML ONE (17:00)
[2017-11-09] MEDS: Metoclopramide HCl 10 MG/2 ML VIAL IVP PRN (17:01)
[2017-11-09] MEDS: Senokot S 8.6-50 MG TAB PO SCH (20:00)
[2017-11-09] MEDS: Pantoprazole 40 MG VIAL IVP SCH (20:00)
[2017-11-10] MEDS: Sodium Chloride 0.9% 1,000 ML IV SCH ×3 (02:31→16:09)
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
--- NOTE | 2017-11-10 08:29 | PDOC.PULPN ---
Progress Note: Subj/Obj - Subjective Date: 11/10/17 Time: 08:28 Narrative: c/o back pain - ROS ROS unobtainable: other (back pain, head ache) Respiratory: no reported symptoms - Objective Allergies/Adverse Reactions: Allergies Allergy/AdvReac Type Severity Reaction Status Date / Time Penicillins Allergy Verified 10/01/17 10:10 Medications: Current Medications Acetaminophen (Tylenol) 1,000 mg PO Q6H PRN PRN Reason: FEVER/PAIN Last Admin: 11/09/17 16:41 Dose: 1,000 mg Hydrocodone Bitart/Acetaminophen ([place] 7.5/325) 1 tab PO TID PRN PRN Reason: Mild Pain (1-3) Last Admin: 11/09/17 21:06 Dose: 1 tab Albuterol Sulfate (Proventil Hfa) 2 puff INH Q4H PRN PRN Reason: SOB &/or Wheezing Albuterol/Ipratropium (Duoneb) 3 ml NEB [id number] [facility] Last Admin: 11/10/17 07:40 Dose: 3 ml Bisacodyl (Dulcolax) 10 mg KS DAILYPRN PRN PRN Reason: Constipation Clonidine (Catapres) 0.1 mg PO BID PRN PRN Reason: Systolic BP > 180 Last Admin: 11/08/17 12:46 Dose: 0.1 mg Hydralazine HCl (Apresoline) 10 mg SLOW IVP Q4H PRN PRN Reason: Systolic BP > 180 Levetiracetam 500 mg/ Device 100 mls @ 200 mls/hr IVPB BID [facility] Last Admin: 11/09/17 19:59 Dose: 100 mls Sodium Chloride (Normal Saline 0.9%) 1,000 mls @ 125 mls/hr IV .Q8H [facility] Last Admin: 11/10/17 02:31 Dose: 1,000 mls Potassium Chloride 40 meq/ (Sodium Chloride) 270 mls @ 135 mls/hr IVPB ASDIR PRN PRN Reason: FOR SERUM K+ 2.5 - 3.5 Potassium Chloride 40 meq/ (Device) 100 mls @ 50 mls/hr IVPB ASDIR PRN PRN Reason: FOR SERUM K+ 2.5 - 3.5 Magnesium Sulfate 1 gm/ Sodium (Chloride) 102 mls @ 102 mls/hr IV PRN PRN PRN Reason: MAG LEVEL 1.4 - 2.0 Magnesium Sulfate 2 gm/ Device 100 mls @ 100 mls/hr IVPB ASDIR PRN PRN Reason: MAGNESIUM < 1.4 Potassium Phosphate 9 mmol/ (Sodium Chloride) 103 mls @ 25.75 mls/hr IVPB ASDIR PRN PRN Reason: Phosphate 1.0-1.8 Potassium Phosphate 12 mmol/ (Sodium Chloride) 254 mls @ 63.5 mls/hr IV ASDIR PRN PRN Reason: Serum phosphate 0.5-0.9 Potassium Phosphate 15 mmol/ (Sodium Chloride) 255 mls @ 63.75 mls/hr IV ASDIR PRN PRN Reason: Serum Phos < 0.5 Nicardipine HCl 25 mg/ Sodium (Chloride) 250 mls @ 0 mls/hr IVPB INF STORM; Titrate PRN Reason: Protocol Last Admin: 11/09/17 10:43 Dose: 250 mls Lidocaine (Lidoderm 5% Patch) 1 patch TD DAILY STORM Last Admin: 11/09/17 10:03 Dose: 1 patch Lisinopril (Zestril) 40 mg PO DAILY STORM Last Admin: 11/09/17 09:30 Dose: 40 mg Lorazepam (Ativan) 1 mg SLOW IVP Q4H PRN PRN Reason: Anxiety/Agitation Last Admin: 11/07/17 14:07 Dose: 1 mg Magnesium Oxide (Magnesium Oxide) 400 mg PO BIDPRN PRN PRN Reason: FOR SERUM MAG 1.4 - 2.0 Magnesium Oxide (Magnesium Oxide) 800 mg PO PRN PRN PRN Reason: FOR SERUM MAG < 1.4 Metoclopramide HCl (Reglan) 10 mg IVP Q6H PRN PRN Reason: Nausea/Vomiting Last Admin: 11/09/17 17:01 Dose: 10 mg Miscellaneous Medication (Phos-Nak) 1 pkt PO TIDPRN PRN PRN Reason: FOR PHOS LEVEL 1.0 - 1.8 Miscellaneous Medication (Phos-Nak) 2 pkt PO TIDPRN PRN PRN Reason: FOR PHOS LEVEL 0.5 - 1.0 Miscellaneous Medication (Lidocaine Patch Removal) 1 each TOP 2100 STORM Last Admin: 11/09/17 20:00 Dose: 1 each Ccu Electrolyte (Replacement Protocol) 0 each FS PRN PRN PRN Reason: FOR ELECTROLYTE REPLACEMENT Ondansetron HCl (Zofran) 4 mg IVP Q6H PRN PRN Reason: Nausea/Vomiting Last Admin: 11/08/17 20:57 Dose: 4 mg Ondansetron HCl (Zofran Odt) 8 mg PO Q6H PRN PRN Reason: Nausea/Vomiting Last Admin: 11/09/17 15:02 Dose: 8 mg Pantoprazole Sodium (Protonix) 40 mg IVP Q12HR [facility] Last Admin: 11/09/17 20:00 Dose: 40 mg Polyethylene Glycol (Miralax) 17 gm PO DAILYPRN PRN PRN Reason: Constipation Potassium Chloride (K-Dur) 40 meq PO ASDIR PRN PRN Reason: FOR SERUM K+ 2.5 - 3.5 Potassium Chloride (Klor-Con) 40 meq PER TUBE ASDIR PRN PRN Reason: FOR SERUM K+ 2.5-3.5 Senna/Docusate Sodium (Senokot S) 1 tab PO BID [facility] Last Admin: 11/09/17 20:00 Dose: 1 tab MAR Reviewed: Yes Vital Signs: Vital Signs Temp 97.9 F 11/10/17 07:00 Pulse 106 H 11/10/17 07:40 Resp 15 11/10/17 07:40 BP 141/87 H 11/09/17 14:40 Pulse Ox 100 11/10/17 07:42 Intake & Output 11/09/17 11/10/17 11/10/17 18:59 06:59 18:59 Intake Total 2501 1822 Output Total 1900 785 150 Balance 601 1037 -150 Intake: Intake, IV Amount 2361 1722 Sodium Chloride 0.9% 1, 1394 1722 000 ml @ 125 mls/hr IV . Q8H [facility] Rx#:[id number] niCARdipine HCl 25 mg In 967 Sodium Chloride 0.9% 250 ML 240 ml @ Titrate IVPB INF [facility] Rx#:[id number] Oral 140 100 Output: Output, Andino 1050 785 150 Emesis 850 Other: Voiding Method Indwelling Catheter Indwelling Catheter Progress Note: Exam - Physical Exam Constitutional: NAD HEENT: PERRLA, sclera anicteric Neck: no nodes, no JVD Cardiovascular: RRR, no rub Respiratory: clear to auscultation bilaterally Gastrointestinal: soft, non-tender Musculoskeletal: no edema Neurological: non-focal, normal sensation Lymphatic: no nodes Psychiatric: normal affect, A&O x 3 Skin: no rash Progress Note: Data - Labs Result Diagrams: 11/09/17 04:05 11/09/17 04:05 Lab results: Laboratory Results 11/09/17 11/09/17 11/09/17 04:05 04:05 04:05 WBC 8.6 RBC 4.08 L Hgb 13.5 L Hct 39.8 L MCV 97.5 H MCH 33.0 H MCHC 33.8 RDW 11.8 Plt Count 180 MPV 7.0 L Neutrophils % 86.8 H Lymphocytes % 6.2 L Monocytes % 5.9 Eosinophils % 0.9 Basophils % 0.2 Neutrophils # 7.5 H Lymphocytes # 0.5 L Monocytes # 0.5 Eosinophils # 0.1 Basophils # 0.0 Sodium 138 Potassium 4.4 Chloride 98 Carbon Dioxide 31 H Anion Gap 13 BUN Less than 4 L Creatinine 0.73 Estimated GFR (MDRD) Greater than 90 BUN/Creatinine Ratio 5.48 Glucose 108 H POC Glucose Calcium 9.7 Phosphorus 3.4 Magnesium 2.2 Albumin 4.4 Lipase 18 11/09/17 14:43 WBC RBC Hgb Hct MCV MCH MCHC RDW Plt Count MPV Neutrophils % Lymphocytes % Monocytes % Eosinophils % Basophils % Neutrophils # Lymphocytes # Monocytes # Eosinophils # Basophils # Sodium Potassium Chloride Carbon Dioxide Anion Gap BUN Creatinine Estimated GFR (MDRD) BUN/Creatinine Ratio Glucose POC Glucose 93 Calcium Phosphorus Magnesium Albumin Lipase Progress Note: A/P - Problems (1) Acute respiratory failure with hypoxia and hypercarbia Current Visit: No Status: Resolved Code(s): J96.01 - ACUTE RESPIRATORY FAILURE WITH HYPOXIA; J96.02 - ACUTE RESPIRATORY FAILURE WITH HYPERCAPNIA (2) Seizure Current Visit: Yes Status: Acute Code(s): R56.9 - UNSPECIFIED CONVULSIONS (3) HILL (obstructive sleep apnea) Current Visit: Yes Status: Acute Code(s): G47.33 - OBSTRUCTIVE SLEEP APNEA ( ADULT) (PEDIATRIC) - Plan Plan: May get EGD today SALVADOR andino This may be Xanax w/d seizures. He was taking 2mg nightly before admission, but ran out several days prior Also taking [place] 10 tid OK to transfer to floor eventual outpt sleep study
[2017-11-10] MEDS: Senokot S 8.6-50 MG TAB PO SCH ×2 (08:49→20:32)
[2017-11-10] MEDS: Lisinopril 20 MG TAB PO SCH (08:49)
[2017-11-10] MEDS: Pantoprazole 40 MG VIAL IVP SCH ×2 (08:49→20:49)
[2017-11-10] MEDS: Morphine 4 MG/ML Carpuject SLOW IVP PRN ×2 (08:50→13:53)
[2017-11-10] MEDS: Lidocaine 5% Patch TD SCH (09:29)
--- NOTE | 2017-11-10 10:52 | EEG ---
Referring Physician: Zoey CHANG EEG # [id number] TEST TYPE: ROUTINE PORTABLE INPATIENT INDICATION: SEIZURE AN EEG USING THE INTERNATIONAL TEN-TWENTY SYSTEM OF ELECTRODE PLACEMENT WAS PERFORMED. EEG FINDINGS: Occipital rhythm of about 8 to10 hertz. Slightly suppressed background rhythm. The patient is intubated during this recording and general background shows suppression of voltage. The patient is awake during this recording. He has fast frontal activity in ceratin areas of the recording consistent with benzodiazepine use. No seizure activity was noted. No abnormal epileptiform discharges. No sharps, no spike and wave discharges were noted. Occasional sharp waves which are noted are not sustained. IMPRESSION: SLIGHTLY LOWER VOLTAGE THROUGHOUT THE RECORDING. NO SEIZURES WERE NOTED. THE PATIENT HAD FRONTAL FAST ACTIVITY. [] Steam Shovelman: ADINA Packing Machine Tender: EEG.[email or web address] HERNANDEZ
--- NOTE | 2017-11-10 13:44 | OP ---
DATE OF PROCEDURE: 11/10/2017 SURGEON: Ramirez Hooker M.D. PREOPERATIVE DIAGNOSES: 1. Repetitive nausea and vomiting. 2. History of possible ulcer a few months ago in [place]. POSTOPERATIVE DIAGNOSIS: Normal esophagogastroduodenoscopy. ANESTHESIA: TIVA. PROCEDURE IN DETAIL: After the patient was informed of the risks, benefits, possible complications o f endoscopy including perforation, bleeding, reactions medications and aspiration, informed consent w as obtained. The patient brought to endoscopy suite where he was sedated in gradual fashion. Once s he was comfortable, a bite block was placed in incisural orifice. The endoscope was advanced through the esophagus, stomach and second and third portion of duodenum and slowly removed. The esophagus, stomach, and duodenum and second and third portions were all normal. There was no evidence of obstru ction, gastritis, ulcers or erosions. The GE junction was normal in forward and retroflexed views. The scope was removed. The patient tolerated the procedure well with no complications.
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
[2017-11-10] MEDS ORDERED: Propofol 200 MG/20 ML VIAL ONE (15:52)
[2017-11-10] MEDS: Lorazepam 2 MG/ML VIAL SLOW IVP PRN (16:02)
[2017-11-10] MEDS: HYDROcodone/Acetaminophen 7.5/325 mg Tablet PO PRN ×2 (17:55→23:44)
[2017-11-10] MEDS: Lidocaine Patch Removal 1 EACH TOP SCH (20:34)
[2017-11-11] MEDS: Sodium Chloride 0.9% 1,000 ML IV SCH ×2 (00:25→08:34)
[2017-11-11] MEDS: HYDROcodone/Acetaminophen 7.5/325 mg Tablet PO PRN ×4 (08:25→22:26)
[2017-11-11] MEDS: Ondansetron ODT 4 MG TAB PO PRN (08:29)
[2017-11-11] MEDS: Senokot S 8.6-50 MG TAB PO SCH ×2 (08:31→21:07)
[2017-11-11] MEDS: Polyethylene Glycol 3350 17 GM Packet PO SCH (08:31)
[2017-11-11] MEDS: Lisinopril 20 MG TAB PO SCH (08:32)
[2017-11-11] MEDS: Pantoprazole 40 MG VIAL IVP SCH ×2 (08:32→21:05)
[2017-11-11] MEDS: Lidocaine 5% Patch TD SCH (08:45)
--- NOTE | 2017-11-11 09:53 | PDOC.PULPN ---
Progress Note: Subj/Obj - Subjective Date: 11/11/17 Time: 09:51 Narrative: complains of pain "all over" - ROS Respiratory: no reported symptoms - Objective Allergies/Adverse Reactions: Allergies Allergy/AdvReac Type Severity Reaction Status Date / Time Penicillins Allergy Verified 10/01/17 10:10 Medications: Current Medications Acetaminophen (Tylenol) 1,000 mg PO Q6H PRN PRN Reason: FEVER/PAIN Last Admin: 11/09/17 16:41 Dose: 1,000 mg Hydrocodone Bitart/Acetaminophen ([place] 7.5/325) 1 tab PO TID PRN PRN Reason: Mild Pain (1-3) Last Admin: 11/11/17 08:25 Dose: 1 tab Albuterol Sulfate (Proventil Hfa) 2 puff INH Q4H PRN PRN Reason: SOB &/or Wheezing Albuterol/Ipratropium (Duoneb) 3 ml NEB [id number] [facility] Last Admin: 11/11/17 06:34 Dose: 3 ml Bisacodyl (Dulcolax) 10 mg GA DAILYPRN PRN PRN Reason: Constipation Last Admin: 11/10/17 12:55 Dose: 10 mg Clonidine (Catapres) 0.1 mg PO BID PRN PRN Reason: Systolic BP > 180 Last Admin: 11/08/17 12:46 Dose: 0.1 mg Hydralazine HCl (Apresoline) 10 mg SLOW IVP Q4H PRN PRN Reason: Systolic BP > 180 Levetiracetam 500 mg/ Device 100 mls @ 200 mls/hr IVPB BID [facility] Last Admin: 11/11/17 08:32 Dose: 100 mls Sodium Chloride (Normal Saline 0.9%) 1,000 mls @ 125 mls/hr IV .Q8H [facility] Last Admin: 11/11/17 08:34 Dose: 1,000 mls Potassium Chloride 40 meq/ (Sodium Chloride) 270 mls @ 135 mls/hr IVPB ASDIR PRN PRN Reason: FOR SERUM K+ 2.5 - 3.5 Potassium Chloride 40 meq/ (Device) 100 mls @ 50 mls/hr IVPB ASDIR PRN PRN Reason: FOR SERUM K+ 2.5 - 3.5 Magnesium Sulfate 1 gm/ Sodium (Chloride) 102 mls @ 102 mls/hr IV PRN PRN PRN Reason: MAG LEVEL 1.4 - 2.0 Magnesium Sulfate 2 gm/ Device 100 mls @ 100 mls/hr IVPB ASDIR PRN PRN Reason: MAGNESIUM < 1.4 Potassium Phosphate 9 mmol/ (Sodium Chloride) 103 mls @ 25.75 mls/hr IVPB ASDIR PRN PRN Reason: Phosphate 1.0-1.8 Potassium Phosphate 12 mmol/ (Sodium Chloride) 254 mls @ 63.5 mls/hr IV ASDIR PRN PRN Reason: Serum phosphate 0.5-0.9 Potassium Phosphate 15 mmol/ (Sodium Chloride) 255 mls @ 63.75 mls/hr IV ASDIR PRN PRN Reason: Serum Phos < 0.5 Nicardipine HCl 25 mg/ Sodium (Chloride) 250 mls @ 0 mls/hr IVPB INF STORM; Titrate PRN Reason: Protocol Last Admin: 11/09/17 10:43 Dose: 250 mls Lidocaine (Lidoderm 5% Patch) 1 patch TD DAILY [facility] Last Admin: 11/10/17 09:29 Dose: 1 patch Lisinopril (Zestril) 40 mg PO DAILY [facility] Last Admin: 11/11/17 08:32 Dose: 40 mg Lorazepam (Ativan) 1 mg SLOW IVP Q4H PRN PRN Reason: Anxiety/Agitation Last Admin: 11/10/17 16:02 Dose: 1 mg Magnesium Oxide (Magnesium Oxide) 400 mg PO BIDPRN PRN PRN Reason: FOR SERUM MAG 1.4 - 2.0 Magnesium Oxide (Magnesium Oxide) 800 mg PO PRN PRN PRN Reason: FOR SERUM MAG < 1.4 Metoclopramide HCl (Reglan) 10 mg IVP Q6H PRN PRN Reason: Nausea/Vomiting Last Admin: 11/09/17 17:01 Dose: 10 mg Miscellaneous Medication (Phos-Nak) 1 pkt PO TIDPRN PRN PRN Reason: FOR PHOS LEVEL 1.0 - 1.8 Miscellaneous Medication (Phos-Nak) 2 pkt PO TIDPRN PRN PRN Reason: FOR PHOS LEVEL 0.5 - 1.0 Miscellaneous Medication (Lidocaine Patch Removal) 1 each TOP 2100 [facility] Last Admin: 11/10/17 20:34 Dose: Not Given Morphine Sulfate (Morphine) 4 mg SLOW IVP Q4H PRN PRN Reason: Pain Last Admin: 11/10/17 13:53 Dose: 4 mg Ccu Electrolyte (Replacement Protocol) 0 each FS PRN PRN PRN Reason: FOR ELECTROLYTE REPLACEMENT Ondansetron HCl (Zofran) 4 mg IVP Q6H PRN PRN Reason: Nausea/Vomiting Last Admin: 11/08/17 20:57 Dose: 4 mg Ondansetron HCl (Zofran Odt) 8 mg PO Q6H PRN PRN Reason: Nausea/Vomiting Last Admin: 11/11/17 08:29 Dose: 8 mg Pantoprazole Sodium (Protonix) 40 mg IVP Q12HR [facility] Last Admin: 11/11/17 08:32 Dose: 40 mg Polyethylene Glycol (Miralax) 17 gm PO DAILY [facility] Last Admin: 11/11/17 08:31 Dose: Not Given Potassium Chloride (K-Dur) 40 meq PO ASDIR PRN PRN Reason: FOR SERUM K+ 2.5 - 3.5 Potassium Chloride (Klor-Con) 40 meq PER TUBE ASDIR PRN PRN Reason: FOR SERUM K+ 2.5-3.5 Senna/Docusate Sodium (Senokot S) 1 tab PO BID [facility] Last Admin: 11/11/17 08:31 Dose: Not Given MAR Reviewed: Yes Vital Signs: Vital Signs Temp 98.5 F 11/11/17 07:52 Pulse 100 11/11/17 07:52 Resp 20 11/11/17 07:52 BP 175/104 H 11/11/17 08:32 Pulse Ox 96 11/11/17 07:52 Intake & Output 11/10/17 11/11/17 11/11/17 18:59 06:59 18:59 Intake Total 1551 Output Total 1375 250 Balance 176 -250 Intake: Intake, IV Amount 1191 Sodium Chloride 0.9% 1, 1191 000 ml @ 125 mls/hr IV . Q8H [facility] Rx#:[id number] Oral 360 Output: Urine 800 250 Output, Gomes 575 Other: Voiding Method Indwelling Catheter Bedside Commode # Bowel Movements 1 Progress Note: Exam - Physical Exam Constitutional: NAD HEENT: PERRLA, sclera anicteric Neck: no nodes, no JVD Cardiovascular: RRR, no significant murmur Respiratory: clear to auscultation bilaterally Gastrointestinal: soft, non-tender, positive bowel sounds Neurological: non-focal, moves all 4 limbs Lymphatic: no nodes Psychiatric: normal affect, A&O x 3 Skin: no rash Progress Note: Data - Labs Result Diagrams: 11/09/17 04:05 11/09/17 04:05 Progress Note: A/P - Problems (1) Acute respiratory failure with hypoxia and hypercarbia Current Visit: No Status: Resolved Code(s): J96.01 - ACUTE RESPIRATORY FAILURE WITH HYPOXIA; J96.02 - ACUTE RESPIRATORY FAILURE WITH HYPERCAPNIA (2) Seizure Current Visit: Yes Status: Acute Code(s): R56.9 - UNSPECIFIED CONVULSIONS (3) HILL (obstructive sleep apnea) Current Visit: Yes Status: Acute Code(s): G47.33 - OBSTRUCTIVE SLEEP APNEA ( ADULT) (PEDIATRIC) - Plan Plan: Will need outpt sleep study Probably needs some form of detox for narcotic and benzo dependence
[2017-11-11] MEDS ORDERED: Morphine 5 MG/ML SYRINGE SLOW IVP PRN (10:14)
[2017-11-11] MEDS: cloNIDine 0.1 MG TAB PO PRN (11:30)
--- NOTE | 2017-11-11 12:05 | PQF ---
SAP Supervisor [employer] Crystal Reports Winform ViewerROBJERROD,JOHNNIE MAYERS [id number] [facility] [id number] CLINICAL DOCUMENTATION IMPROVEMENT CLARIFICATION FORM: ICD-10 Updated PLEASE DO AN ADDENDUM TO THE PROGRESS NOTE WITH ANY DOCUMENTATION UPDATES OR ADDITIONS AND CARRY THROUGH TO DC SUMMARY. THANK YOU. DATE: 11-11-17 ATTN: DR. LAST Please exercise your independent, professional judgment in responding to the clarification form. Clinical indicators are provided on the bottom of this form for your review Please check appropriate box(s): [ x ] Sepsis due to Aspiration Pneumonia [ x ] Severe sepsis with acute organ dysfunction of Acute Hypoxic Hypercapnic Respiratory Failure and Acute Encephalopathy [ ] Localized infection without sepsis [ ] Other diagnosis [ ] Unable to determine In addition, please specify: Present on Admission (POA): [ x ] Yes [ ] No [ ] Unable to determine For continuity of documentation, please document condition throughout progress notes and discharge summary. Thank You. CLINICAL INDICATORS - SIGNS / SYMPTOMS / LABS PULMONARY CONSULT: SEPSIS LABS: 11-06 WBC 7.9 TEMP 97.9 - 99.7 PULSE 106 - 141 RESP 24 11-07 WBC 13.3 TEMP 100 - 101 PULSE 105 - 111 RESP 24 H&P: ENCEPHALOPATHY RISK FACTORS H&P: HX OF SEVERE SEPSIS W/ ACUTE ORGAN DYSFUNCTION IN HX OF ACUTE HYPOXIC HYPERCAPNIC RESP FAILURE REQUIRING MECHANICAL VENT HILL ASPIRATION PNA CHRONIC PAIN SYNDROME W/ CHRONIC BENZODIAZEPINES - SUSPECT POLYPHARMACY TREATMENTS: MAR: CEFEPIME 11-06 TO 11-09 VANCOMYCIN 11-07 / 11-08 VENTILATOR 11-06 TO 11-07 PULMONARY CONSULT THANK YOU, JENY (This form is maintained as a part of the permanent medical record) 2014 [employer]. All Rights Reserved Jeny Marshall, RN, BS [email or web address] Cell [facility]
[2017-11-11] MEDS: Ondansetron HCl/PF 4 MG/2 ML Vial IVP PRN (14:05)
--- NOTE | 2017-11-11 19:24 | PDOC.PN ---
- Subjective Encounter Start Date: 11/11/17 Encounter Start Time: 14:00 Subjective: nsg notes rev, jonatan ovn, @ bedside pt c/o feeling weak and sore -: "all over" no new c/o otherwise. reviewed EGD results. Had a BM - Objective Resuscitation Status: Resuscitation Status FULL:Full Resuscitation Vital Signs & Weight: Vital Signs (12 hours) Temp Pulse Resp BP BP Pulse Ox 11/11/17 18:40 90 18 97 11/11/17 18:00 168/99 H 11/11/17 16:44 98.4 F 91 20 148/86 H 11/11/17 15:29 98.6 F 94 20 183/103 H 11/11/17 13:03 100 12 11/11/17 12:40 170/112 H 11/11/17 12:00 97.7 F 95 16 182/106 H 97 11/11/17 11:30 195/115 H 11/11/17 08:37 98.5 F 100 20 11/11/17 08:32 175/104 H 11/11/17 07:52 98.5 F 100 20 175/104 H 96 Most Recent Monitor Data Heart Rate from ECG 112 NIBP 157/109 NIBP BP-Mean 122 Respiration from ECG 19 SpO2 100 I&O: 11/10/17 11/11/17 11/12/17 06:59 06:59 06:59 Intake Total 4323 1551 950 Output Total 2685 1625 400 Balance 1638 -74 550 Result Diagrams: 11/09/17 04:05 11/09/17 04:05 Phys Exam - Physical Examination Constitutional: NAD HEENT: PERRLA, moist MMs, sclera anicteric Respiratory: no wheezing, no rales, no rhonchi, clear to auscultation bilateral Cardiovascular: RRR, no significant murmur, no rub Gastrointestinal: soft, non-tender, no distention, positive bowel sounds Musculoskeletal: no edema, pulses present Psychiatric: normal affect, A&O x 3 Dx/Plan (1) Aspiration pneumonia Code(s): J69.0 - PNEUMONITIS DUE TO INHALATION OF FOOD AND VOMIT Status: Resolved Qualifiers: Laterality: unspecified laterality Comment: likely aspiration off abx without further ssx of infection likely aspiration pneumonitis (2) Chronic pain syndrome Code(s): G89.4 - CHRONIC PAIN SYNDROME Status: Chronic Comment: De-escalate (3) Constipation Code(s): K59.00 - CONSTIPATION, UNSPECIFIED Status: Resolved Qualifiers: Constipation type: drug induced constipation Qualified Code(s): K59.03 - Drug induced constipation Comment: Advance bowel regimen to includ senna, colace, and prn miralax Multifactorial: decreased mobility, narcotic medication use Closely monitor (4) HTN (hypertension) Code(s): I10 - ESSENTIAL (PRIMARY) HYPERTENSION Status: Chronic Qualifiers: Hypertension type: essential hypertension Qualified Code(s): I10 - Essential (primary) hypertension Comment: Resume home Clonidine and Lisinopril, serial BP monitoring Add HCTZ for baseline SBP control as there were episodes of elevation - Plan cont current plan of care, plan discussed w/ family, PT/OT, forensic social worker, out of bed/ambulate Discussed with patient and his at bedside plan to initiate discharge -: planning. They are agreeable. * . Review of Systems - Medications/Allergies Allergies/Adverse Reactions: Allergies Allergy/AdvReac Type Severity Reaction Status Date / Time Penicillins Allergy Verified 10/01/17 10:10 Medications: Current Medications Acetaminophen (Tylenol) 1,000 mg PO Q6H PRN PRN Reason: FEVER/PAIN Last Admin: 11/09/17 16:41 Dose: 1,000 mg Hydrocodone Bitart/Acetaminophen ([place] 7.5/325) 1 tab PO Q4H PRN PRN Reason: Mild Pain (1-3) Last Admin: 11/11/17 18:39 Dose: 1 tab Albuterol Sulfate (Proventil Hfa) 2 puff INH Q4H PRN PRN Reason: SOB &/or Wheezing Albuterol/Ipratropium (Duoneb) 3 ml NEB [id number] STORM Last Admin: 11/11/17 18:40 Dose: 3 ml Bisacodyl (Dulcolax) 10 mg [place] DAILYPRN PRN PRN Reason: Constipation Last Admin: 11/10/17 12:55 Dose: 10 mg Clonidine (Catapres) 0.1 mg PO BID PRN PRN Reason: Systolic BP > 180 Last Admin: 11/11/17 11:30 Dose: 0.1 mg Hydralazine HCl (Apresoline) 10 mg SLOW IVP Q4H PRN PRN Reason: Systolic BP > 180 Hydrochlorothiazide (Hydrochlorothiazide) 25 mg PO DAILY [facility] Levetiracetam 500 mg/ Device 100 mls @ 200 mls/hr IVPB BID [facility] Last Admin: 11/11/17 08:32 Dose: 100 mls Lidocaine (Lidoderm 5% Patch) 1 patch TD DAILY [facility] Last Admin: 11/11/17 08:45 Dose: 1 patch Lisinopril (Zestril) 40 mg PO DAILY [facility] Last Admin: 11/11/17 08:32 Dose: 40 mg Lorazepam (Ativan) 1 mg SLOW IVP Q4H PRN PRN Reason: Anxiety/Agitation Last Admin: 11/10/17 16:02 Dose: 1 mg Magnesium Oxide (Magnesium Oxide) 400 mg PO BIDPRN PRN PRN Reason: FOR SERUM MAG 1.4 - 2.0 Magnesium Oxide (Magnesium Oxide) 800 mg PO PRN PRN PRN Reason: FOR SERUM MAG < 1.4 Metoclopramide HCl (Reglan) 10 mg IVP Q6H PRN PRN Reason: Nausea/Vomiting Last Admin: 11/09/17 17:01 Dose: 10 mg Miscellaneous Medication (Lidocaine Patch Removal) 1 each TOP 2100 [facility] Last Admin: 11/10/17 20:34 Dose: Not Given Morphine Sulfate (Morphine) 4 mg SLOW IVP Q4H PRN PRN Reason: Pain Last Admin: 11/11/17 10:21 Dose: 4 mg Ccu Electrolyte (Replacement Protocol) 0 each FS PRN PRN PRN Reason: FOR ELECTROLYTE REPLACEMENT Ondansetron HCl (Zofran) 4 mg IVP Q6H PRN PRN Reason: Nausea/Vomiting Last Admin: 11/11/17 14:05 Dose: 4 mg Ondansetron HCl (Zofran Odt) 8 mg PO Q6H PRN PRN Reason: Nausea/Vomiting Last Admin: 11/11/17 08:29 Dose: 8 mg Pantoprazole Sodium (Protonix) 40 mg IVP Q12HR [facility] Last Admin: 11/11/17 08:32 Dose: 40 mg Polyethylene Glycol (Miralax) 17 gm PO DAILY [facility] Last Admin: 11/11/17 08:31 Dose: Not Given Senna/Docusate Sodium (Senokot S) 1 tab PO BID [facility] Last Admin: 11/11/17 08:31 Dose: Not Given
[2017-11-11] MEDS: Lidocaine Patch Removal 1 EACH TOP SCH (21:02)
[2017-11-11] MEDS ORDERED: Lisinopril 20 MG TAB PO SCH (22:45)
[2017-11-11] MEDS: Lorazepam 2 MG/ML VIAL SLOW IVP PRN (23:14)
--- NOTE | 2017-11-11 23:31 | PRG ---
DATE OF SERVICE: 11/11/2017 SUBJECTIVE: Mr. George is feeling better. He wants to eat. He is no longer vomiting. OBJECTIVE: VITAL SIGNS: Temperature is 98, pulse 91, blood pressure 168/99. ABDOMEN: Nontender. LABORATORY DATA: None. ASSESSMENT: 1. Nausea and vomiting, resolved. 2. Esophagogastroduodenoscopy normal. No signs of gastritis. 3. Gastroesophageal reflux disease. 4. Sleep apnea. 5. Tachycardia, resolved. I suspect that a lot of his symptoms are related to withdrawal from narco tics and benzodiazepines. He has been talked by his other physicians about this and I have added the same. I think, he needs to think about doing some rehab and trying to get off of these medications as they are not helping him and in fact are causing him multiple problems and probably including a se izure, which may have been related to withdrawal from benzos. RECOMMENDATIONS: 1. Avoid alcohol, consider rehabilitation stint for benzos and narcotics. 2. PPI as needed for reflux. Recommend avoidance of alcohol, nicotine tobacco gastric reflux. At this time, we will sign off. If I can be of further assistance in patient's care, please do con tact me. I discussed these issues with the patient and his at the bedside.
[2017-11-12] MEDS: HYDROcodone/Acetaminophen 7.5/325 mg Tablet PO PRN ×5 (04:23→21:43)
[2017-11-12] MEDS: Lisinopril 20 MG TAB PO SCH ×2 (08:18→21:44)
[2017-11-12] MEDS: Lidocaine 5% Patch TD SCH (08:18)
[2017-11-12] MEDS: Hydrochlorothiazide 25 MG TAB PO SCH (08:18)
[2017-11-12] MEDS: Polyethylene Glycol 3350 17 GM Packet PO SCH (08:19)
[2017-11-12] MEDS: Pantoprazole 40 MG VIAL IVP SCH (08:19)
[2017-11-12] MEDS: Senokot S 8.6-50 MG TAB PO SCH ×2 (08:19→21:46)
[2017-11-12] MEDS: Ondansetron ODT 4 MG TAB PO PRN (08:52)
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
[2017-11-12] MEDS: Lorazepam 2 MG/ML VIAL SLOW IVP PRN ×3 (10:53→19:54)
--- NOTE | 2017-11-12 13:21 | PDOC.PN ---
- Subjective Encounter Start Date: 11/12/17 Encounter Start Time: 13:19 Subjective: Still complains of generalized pain and discomfort, - Objective Resuscitation Status: Resuscitation Status FULL:Full Resuscitation MAR Reviewed: Yes Vital Signs & Weight: Vital Signs (12 hours) Temp Pulse Resp BP BP Pulse Ox 11/12/17 12:00 98 F 92 16 150/88 H 96 11/12/17 11:46 80 14 11/12/17 08:18 164/88 H 11/12/17 08:00 97.7 F 97 16 164/88 H 95 11/12/17 06:35 90 16 11/12/17 04:01 98.5 F 99 16 168/116 H 94 L 11/12/17 03:18 99 Most Recent Monitor Data Heart Rate from ECG 112 NIBP 157/109 NIBP BP-Mean 122 Respiration from ECG 19 SpO2 100 I&O: 11/11/17 11/12/17 11/13/17 06:59 06:59 06:59 Intake Total 1551 1350 240 Output Total 1625 650 Balance -74 700 240 Result Diagrams: 11/09/17 04:05 11/09/17 04:05 Phys Exam - Physical Examination Constitutional: NAD HEENT: PERRLA, moist MMs, sclera anicteric Neck: full ROM Respiratory: no wheezing, no rales, clear to auscultation bilateral Cardiovascular: RRR, no significant murmur, no rub Gastrointestinal: soft, non-tender, no distention, positive bowel sounds Musculoskeletal: no edema Neurological: non-focal, moves all 4 limbs Lymphatic: no nodes Psychiatric: normal affect, A&O x 3 Skin: no rash Dx/Plan (1) HTN (hypertension) Code(s): I10 - ESSENTIAL (PRIMARY) HYPERTENSION Status: Chronic Qualifiers: Hypertension type: essential hypertension Qualified Code(s): I10 - Essential (primary) hypertension Plan: Continue lisinopril, HCTZ and clonidine. Monitor BP/ Comment: Resume home Clonidine and Lisinopril, serial BP monitoring. HCTZ added. (2) Aspiration pneumonia Code(s): J69.0 - PNEUMONITIS DUE TO INHALATION OF FOOD AND VOMIT Status: Resolved Qualifiers: Laterality: unspecified laterality Plan: Remains stable off antibiotics. monitor. Comment: likely aspiration off abx without further ssx of infection likely aspiration pneumonitis (3) Acute respiratory failure with hypoxia and hypercarbia Code(s): J96.01 - ACUTE RESPIRATORY FAILURE WITH HYPOXIA; J96.02 - ACUTE RESPIRATORY FAILURE WITH HYPERCAPNIA Status: Resolved Plan: Resolved. Continue current treatment. Comment: appreciate pulmonary c/s Extubated successfully 11/07/17: continue pulm support, O2 NC, BiPAP prn D/W pt need for CPAP at home for his chronic HILL Will need outpatient sleep study. (4) Chronic pain syndrome Code(s): G89.4 - CHRONIC PAIN SYNDROME Status: Chronic Plan: Discontinue IV morphine. Continue other management, Comment: Will continue to de-escalate narcotic requirements. (5) Constipation Code(s): K59.00 - CONSTIPATION, UNSPECIFIED Status: Resolved Qualifiers: Constipation type: drug induced constipation Qualified Code(s): K59.03 - Drug induced constipation Plan: Resolved. Comment: Advance bowel regimen to includ senna, colace, and prn miralax Multifactorial: decreased mobility, narcotic medication use Closely monitor (6) Seizure Code(s): R56.9 - UNSPECIFIED CONVULSIONS Status: Acute Plan: Seizure free. Will discontinue IV Keppra and commence on oral. - Plan cont current plan of care, plan discussed w/ family Discontinue IV meds: Keppra, MNorphine and transition to PO. -: Monitor for seizure activity. -: Likely discharge tomorrow * .
[2017-11-12] MEDS: Ondansetron HCl/PF 4 MG/2 ML Vial IVP PRN (15:23)
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
[2017-11-12] MEDS: levETIRAcetam 500 MG TAB PO SCH (21:42)
[2017-11-12] MEDS: Famotidine 20 MG TAB PO SCH (21:42)
[2017-11-12] MEDS: Lidocaine Patch Removal 1 EACH TOP SCH (21:49)
[2017-11-13] MEDS: HYDROcodone/Acetaminophen 7.5/325 mg Tablet PO PRN ×5 (03:54→22:53)
[2017-11-13] MEDS: Lorazepam 2 MG/ML VIAL SLOW IVP PRN ×3 (03:56→21:05)
[2017-11-13 05:56] LABS: #Eosinphils 0.1 thou/uL (0.0-0.7); #Monocytes 0.8 thou/uL (0.11-0.59); %Basophils 0.6 % (0.0-1.0); %Eosinophils 2.1 % (0.0-10.0); %Monocytes 10.9 % (0.0-10.0); %Neutrophils 57.4 % (42.0-75.0); Hemoglobin 13.7 g/dL (14.0-18.0); Mean Corpuscular HGB CONC 35.7 g/dL (32.0-36.0); Mean Corpuscular Hemoglobin 33.9 pg (27.0-31.0); Mean Corpuscular Volume 94.8 fl (80.0-94.0); Platelet Count 301 thou/uL (130-400); RBC Distribution Width 12.2 % (11.5-14.5); Red Blood Cell (RBC) Count 4.06 mill/uL (4.70-6.10); White Blood Cell (WBC) Count 6.9 thou/uL (4.8-10.8)
[2017-11-13 06:01] LABS: Anion Gap 13 mmol/L (10-20); BUN (Urea Nitrogen) 13 mg/dL (8.9-20.6); Calc. Creatinine Clearance 158 mL/min (70-130); Calcium 10.6 mg/dL (7.8-10.44); Carbon Dioxide 29 mmol/L (22-29); Chloride 99 mmol/L (98-107); Estimated GFR-MDRD Greater than 90; Glucose 105 mg/dL (70-105); Sodium 138 mmol/L (136-145)
[2017-11-13 06:04] LABS: Potassium 2.9 mmol/L (3.5-5.1)
[2017-11-13] MEDS ORDERED: Potassium Chloride 20 MEQ TAB PO SCH (06:45)
[2017-11-13] MEDS: Lisinopril 20 MG TAB PO SCH ×2 (08:01→21:06)
[2017-11-13] MEDS: Famotidine 20 MG TAB PO SCH ×2 (08:01→21:07)
[2017-11-13] MEDS: Lidocaine 5% Patch TD SCH (08:01)
[2017-11-13] MEDS: levETIRAcetam 500 MG TAB PO SCH ×2 (08:01→21:05)
[2017-11-13] MEDS: Senokot S 8.6-50 MG TAB PO SCH ×2 (08:02→21:07)
[2017-11-13] MEDS: Polyethylene Glycol 3350 17 GM Packet PO SCH (08:02)
[2017-11-13] MEDS ORDERED: Potassium Chloride 40 MEQ, Admixture Fee 1 EACH in Sodium Chloride 0.9% 250 ML 250 ML IVPB SCH (09:00)
[2017-11-13] MEDS ORDERED: Potassium Chloride 40 MEQ in Premix Bag 1 BAG IVPB SCH (09:00)
[2017-11-13] MEDS: Hydrochlorothiazide 25 MG TAB PO SCH (09:40)
[2017-11-13] MEDS ORDERED: Communication Order-Pharmacy FS SCH (10:00)
[2017-11-13] MEDS ORDERED: Verapamil 5 MG/2 ML VIAL ONE (10:16)
[2017-11-13] MEDS ORDERED: Heparin 10,000 UNITS/1 ML VIAL ONE (10:16)
[2017-11-13] MEDS ORDERED: Nitroglycerin 100MG/250ML BOT 250 ML ONE (10:16)
[2017-11-13] MEDS ORDERED: Sodium Chloride 0.9% 200 ML IV SCH (11:10)
[2017-11-13] MEDS ORDERED: Acetaminophen/Codeine 30-300mg Tablet PO PRN ×2 (11:10)
[2017-11-13] MEDS ORDERED: Nitroglycerin 0.4 MG TAB (25 Tab Bottle) SL PRN (11:10)
[2017-11-13] MEDS ORDERED: traMADol HCl 50 MG TAB PO PRN (11:10)
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
[2017-11-13] MEDS ORDERED: Sodium Chloride 0.9% 200 ML IV PRN (11:45)
[2017-11-13] MEDS ORDERED: Iopamidol 370 76% 100 ML VIAL ONE (11:48)
[2017-11-13 13:31] LABS: Potassium 3.6 mmol/L (3.5-5.1)
--- NOTE | 2017-11-13 15:24 | PDOC.PN ---
- Subjective Encounter Start Date: 11/13/17 Encounter Start Time: 15:30 Subjective: No new compplaints. No chest pain or SOB. - Objective Resuscitation Status: Resuscitation Status FULL:Full Resuscitation MAR Reviewed: Yes Vital Signs & Weight: Vital Signs (12 hours) Temp Pulse Resp BP BP Pulse Ox 11/13/17 13:23 76 16 11/13/17 12:00 97.4 F L 90 16 179/113 H 95 11/13/17 11:10 103 H 16 148/103 H 11/13/17 08:01 142/84 H 11/13/17 08:00 99.1 F 95 16 142/84 H 95 11/13/17 06:28 80 12 11/13/17 03:48 99.2 F 91 18 152/92 H 99 Most Recent Monitor Data Heart Rate from ECG 112 NIBP 157/109 NIBP BP-Mean 122 Respiration from ECG 19 SpO2 100 I&O: 11/12/17 11/13/17 11/14/17 06:59 06:59 06:59 Intake Total 1350 2066 Output Total 650 Balance 700 6 Result Diagrams: 11/13/17 04:46 11/13/17 12:55 Phys Exam - Physical Examination Constitutional: NAD HEENT: PERRLA, moist MMs, sclera anicteric Neck: supple, full ROM Respiratory: no wheezing, no rales, no rhonchi, clear to auscultation bilateral Cardiovascular: RRR, no significant murmur, no rub Gastrointestinal: soft, non-tender, no distention, positive bowel sounds Musculoskeletal: no edema Neurological: non-focal, moves all 4 limbs Psychiatric: normal affect, A&O x 3 Skin: no rash Dx/Plan (1) HTN (hypertension) Code(s): I10 - ESSENTIAL (PRIMARY) HYPERTENSION Status: Chronic Qualifiers: Hypertension type: essential hypertension Qualified Code(s): I10 - Essential (primary) hypertension Plan: Continue lisinopril and HCTZ. PRN clonidine too. Comment: On home Clonidine (PRN), Lisinopril. HCTZ added due to poor control. (2) AV block Code(s): I44.30 - UNSPECIFIED ATRIOVENTRICULAR BLOCK Status: Acute Plan: Will follow up cardiology and EP recommendations Avoid beta blockers Monitor on tele Comment: First degree seeon on 12 lead EKG, pt has had 2nd degree and bradycardia on monitors. Cards and EP on board. had cardiac cath 11/13 and EP study as well. Possible pacemaker/device likely. (3) Chronic pain syndrome Code(s): G89.4 - CHRONIC PAIN SYNDROME Status: Chronic Plan: Stable. Continue current therapy. Comment: Will continue to de-escalate narcotic requirements. (4) Seizure Code(s): R56.9 - UNSPECIFIED CONVULSIONS Status: Acute Plan: Continue Keppra. Comment: Seizure free on keppra. EEG showed no seizures. he had slightly decreased voltage and frontal fast activity. (5) Hypokalemia Code(s): E87.6 - HYPOKALEMIA Status: Acute Comment: Repleted. Check serum magnesium (6) Aspiration pneumonia Code(s): J69.0 - PNEUMONITIS DUE TO INHALATION OF FOOD AND VOMIT Status: Resolved Qualifiers: Laterality: unspecified laterality Comment: likely aspiration off abx without further ssx of infection likely aspiration pneumonitis (7) Constipation Code(s): K59.00 - CONSTIPATION, UNSPECIFIED Status: Resolved Qualifiers: Constipation type: drug induced constipation Qualified Code(s): K59.03 - Drug induced constipation Plan: Resolved with bowel regimen Comment: Advance bowel regimen to includ senna, colace, and prn miralax Multifactorial: decreased mobility, narcotic medication use Resolved with bowel regimen (8) Acute respiratory failure with hypoxia and hypercarbia Code(s): J96.01 - ACUTE RESPIRATORY FAILURE WITH HYPOXIA; J96.02 - ACUTE RESPIRATORY FAILURE WITH HYPERCAPNIA Status: Resolved Plan: Continue shceduled duonebs. has not required PRN albuterol. Comment: appreciate pulmonary c/s Extubated successfully 11/07/17: continue pulm support, O2 NC, BiPAP prn D/W pt need for CPAP at home for his chronic HILL Will need outpatient sleep study. - Plan cont current plan of care, plan discussed w/ family, DVT proph w/heparin * .
[2017-11-13] MEDS ORDERED: Midazolam HCl 2 mg/2 ml Vial ONE (15:52)
[2017-11-13] MEDS ORDERED: Fentanyl 100 MCG/2 ML VIAL ONE (15:52)
[2017-11-13] MEDS ORDERED: Propofol 500 MG/50 ML VIAL ONE (15:57)
[2017-11-13] MEDS ORDERED: Propofol 200 MG/20 ML VIAL ONE (16:20)
[2017-11-13] MEDS ORDERED: Lidocaine 1% PF 5 ML VIAL ONE (16:20)
[2017-11-13] MEDS ORDERED: Isoproterenol 0.2 MG/1 ML AMP ONE (16:52)
[2017-11-13] MEDS ORDERED: Lidocaine 1% w/Epinephrine 1:200K 30 ML VIAL ONE (16:58)
[2017-11-13] MEDS ORDERED: Promethazine HCl 25 MG/ML VIAL SLOW IVP PRN (17:37)
[2017-11-13] MEDS ORDERED: HYDROmorphone 2 MG/ML VIAL SLOW IVP PRN (17:37)
[2017-11-13] MEDS ORDERED: Ondansetron HCl/PF 4 MG/2 ML Vial IVP PRN (17:37)
[2017-11-13] MEDS ORDERED: Promethazine HCl 25 MG/ML VIAL IM PRN (17:37)
--- NOTE | 2017-11-13 20:22 | CCLSPC ---
DATE OF SERVICE: 11/13/2017 REFERRING PHYSICIAN: Dr. Puga and Dr. Blane De Paz. REASON FOR PROCEDURE: Mr. George is a 47-year-old man with history of recurrent passing out spells, possible seizure activity, also Mobitz type 2 second degree AV block and periodic first degree AV bl ock on his telemetry strips. He is here for EP study, to evaluate conduction system and rule out arr hythmias. PROCEDURE: The patient received deep sedation by Anesthesia specialist. After adequate sedation ach ieved, the right femoral venous area was prepped, draped, anesthetized, and the subcutaneous lidocain e, the left femoral vein was accessed using multipurpose needle under ultrasound guidance and an 6-Fr ench short sheath was introduced. A octapolar EP catheter was advanced to the right ventricular, HIS bundle and right atrial locations. Pacing, mapping, and recording was performed in each location. The following findings were noted. Baseline cycle length 659 milliseconds, OH is 177, QRS 119, QTC i s 344 milliseconds. The sinus node recovery time is 723, corrected sinus node recovery time is 143. The AV Wenckebach cycle length is 280 milliseconds. Concentric retrograde Wenckebach cycle is 320 m illiseconds. No definite dual AV hailey physiology was seen. The AV hailey ERP was less than 500/160 milliseconds, no atrial tachycardia induced with burst atrial pacing. Following that from the ventri cular location, ventricular access to my testing was performed up to pre-ventricular extrastimuli at 600/500/400 milliseconds drivetrain. Also, a 400 milliseconds drivetrain was performed under isuprel effect. An ERP was achieved at 500/180/180/180 milliseconds. No ventricular arrhythmia was induced . Under Isuprel effect, the atrial burst pacing was repeated and no arrhythmia was induced. CONCLUSION: 1. Negative EP study for inducible arrhythmias. 2. Normal sinus node and AV hailey function. No evidence of infrahisian conduction problems. PLAN: Proceed with Linq recorder implant. POS: [facility]
[2017-11-13] MEDS: cloNIDine 0.1 MG TAB PO PRN (20:47)
[2017-11-13] MEDS: Ondansetron HCl/PF 4 MG/2 ML Vial IVP PRN (20:47)
[2017-11-13] MEDS ORDERED: cloNIDine 0.1 MG TAB PO SCH (21:00)
[2017-11-13] MEDS: Heparin 5,000 UNITS/ML VIAL SC SCH (21:05)
[2017-11-13] MEDS: Lidocaine Patch Removal 1 EACH TOP SCH (21:37)
--- NOTE | 2017-11-13 23:30 | CCL ---
INDICATION FOR PROCEDURE: A 47-year-old gentleman with unexplained syncope which have been infrequency. He underwent EP study was not found to have no abnormalities and had good recovery time. He had a cardiac catheterization which showed normal coronaries and normal ejection fraction. He was advised to undergo an implantab le loop recorder. This was performed today without difficulties or complications. He was implanted with the device under local anesthesia using Xylocaine. He had already been medicated for the EP stud y and is just to follow up with this. He was still actually under sedation when I arrived, but did r eceive a little bit more propofol. Otherwise, he remained stable during the procedure. This was impl anted without any difficulties or complications in approximately the 3rd or 4th intercostal space in the left side of the chest. No complications or difficulties were encountered. This was a Linq implantable loop recorder from [employer].
--- NOTE | 2017-11-14 00:19 | EKG ---
Test Reason : Blood Pressure : / mmHG Vent. Rate : 086 BPM Atrial Rate : 086 BPM P-R Int : 238 ms QRS Dur : 102 ms QT Int : 386 ms P-R-T Axes : 066 070 059 degrees QTc Int : 461 ms Sinus rhythm with 1st degree A-V block Otherwise normal ECG Confirmed by Graham GREER ([id number]) on 11/14/2017 12:19:36 AM Referred By: JAVON Confirmed By:Graham GREER
[2017-11-14 04:58] LABS: #Eosinphils 0.1 thou/uL (0.0-0.7); #Lymphocytes 2.1 thou/uL (1.20-3.40); #Monocytes 0.6 thou/uL (0.11-0.59); #Neutrophils 3.7 thou/uL (1.40-6.50); %Basophils 0.8 % (0.0-1.0); %Eosinophils 2.2 % (0.0-10.0); %Lymphocytes 31.6 % (21.0-51.0); %Neutrophils 56.5 % (42.0-75.0); Hemoglobin 13.1 g/dL (14.0-18.0); Mean Corpuscular HGB CONC 35.1 g/dL (32.0-36.0); Mean Corpuscular Hemoglobin 33.7 pg (27.0-31.0); Mean Corpuscular Volume 95.9 fl (80.0-94.0); Platelet Count 303 thou/uL (130-400); RBC Distribution Width 12.5 % (11.5-14.5); Red Blood Cell (RBC) Count 3.89 mill/uL (4.70-6.10); White Blood Cell (WBC) Count 6.5 thou/uL (4.8-10.8)
[2017-11-14 05:10] LABS: Anion Gap 13 mmol/L (10-20); BUN (Urea Nitrogen) 15 mg/dL (8.9-20.6); Calc. Creatinine Clearance 150 mL/min (70-130); Carbon Dioxide 27 mmol/L (22-29); Chloride 103 mmol/L (98-107); Estimated GFR-MDRD Greater than 90; Glucose 90 mg/dL (70-105); Magnesium 2.2 mg/dL (1.6-2.6); Potassium 3.4 mmol/L (3.5-5.1); Sodium 140 mmol/L (136-145)
[2017-11-14] MEDS: HYDROcodone/Acetaminophen 7.5/325 mg Tablet PO PRN ×5 (06:07→23:41)
[2017-11-14] MEDS: Ondansetron HCl/PF 4 MG/2 ML Vial IVP PRN (07:22)
[2017-11-14] MEDS ORDERED: Potassium Chloride 20 MEQ TAB PO SCH (08:00)
[2017-11-14] MEDS: Hydrochlorothiazide 25 MG TAB PO SCH (09:02)
[2017-11-14] MEDS: Potassium Chloride 20 MEQ TAB PO SCH ×2 (09:02→17:06)
[2017-11-14] MEDS: Heparin 5,000 UNITS/ML VIAL SC SCH ×3 (09:03→20:27)
[2017-11-14] MEDS: Lisinopril 20 MG TAB PO SCH ×2 (09:04→20:27)
[2017-11-14] MEDS: Famotidine 20 MG TAB PO SCH ×2 (09:04→20:28)
[2017-11-14] MEDS: Senokot S 8.6-50 MG TAB PO SCH ×2 (09:04→20:27)
[2017-11-14] MEDS: levETIRAcetam 500 MG TAB PO SCH ×2 (09:04→20:27)
[2017-11-14] MEDS: Polyethylene Glycol 3350 17 GM Packet PO SCH (09:05)
[2017-11-14] MEDS: Lorazepam 2 MG/ML VIAL SLOW IVP PRN ×3 (11:35→23:42)
--- NOTE | 2017-11-14 11:40 | PDOC.CTH ---
<Allie Harrison - Last Filed: 11/14/17 11:35> Cardiology Progress Note - Subjective The pt seen and examined. No cardiac complaints. His BP was elevated last night. The pt felt shakiness. He felt pressure like pain to Bilat chest at 0600, but no symptoms at this time. The pt still feels weak with walking - Objective Vital Signs Temp Pulse Resp BP BP Pulse Ox 11/14/17 09:04 157/93 H 11/14/17 08:00 98.0 F 89 18 157/93 H 96 11/14/17 06:50 96 11/14/17 06:47 90 16 11/14/17 04:00 97.4 F L 89 18 147/92 H 100 11/14/17 01:23 82 15 97 11/14/17 01:21 82 15 97 Weight 217 lb 11/13/17 11/14/17 11/15/17 06:59 06:59 06:59 Intake Total 2066 590 Balance 2066 590 - Physical Examination General/Neuro: alert & oriented x3 Neck: no JVD present Heart: RRR Abdomen: soft Extremities: other: (No edema; LINQ site is clear, [employer], no oozing or hematoma) - Labs Result Diagrams: 11/14/17 04:19 11/14/17 04:19 Troponin/CKMB CK-MB (CK-2) 0.8 ng/mL (0-6.6) 11/06/17 13:54 Troponin I 0.028 ng/mL (< 0.028) 11/06/17 22:03 - Assessment/Plan 1. 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 S/P LINQ placement on 11/13/17. LINQ education will be given to the pt and family 2. 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 S/P LINQ placement on 11/13/17. 3. HTN - Start Norvasc 5mg PO daily; cont. monitor 4. HILL - On Cpap at HS; possible outpatient sleep study MAR reviewed *Eho on 11/13/17 showed EF 50-55% * Cath on 11/03/17 showed normal coronary arteries * From Cardiac standpoint, the pt is stable to tx to rehab; The pt will f/u with Dr Puga' office within 10 days for the site check and until he finds Cardiologists in [place] for his LINQ management. Review of Systems - Review of Systems Constitutional: reports: no symptoms reported EENTM: reports: no symptoms reported Respiratory: reports: no symptoms reported Cardiac (ROS): reports: no symptoms reported ABD/GI: reports: no symptoms reported : reports: no symptoms reported Musculoskeletal: reports: no symptoms reported <Shasha Puga - Last Filed: 11/14/17 14:46> Cardiology Progress Note - Objective Vital Signs Temp Pulse Resp BP BP Pulse Ox 11/14/17 13:40 80 16 11/14/17 12:14 166/104 H 11/14/17 11:24 98.2 F 83 16 166/104 H 99 11/14/17 09:04 157/93 H 11/14/17 08:00 98.0 F 89 18 157/93 H 96 11/14/17 06:50 96 11/14/17 06:47 90 16 11/14/17 04:00 97.4 F L 89 18 147/92 H 100 Weight 217 lb 11/13/17 11/14/17 11/15/17 06:59 06:59 06:59 Intake Total 2066 590 Balance 2066 590 - Labs Result Diagrams: 11/14/17 04:19 11/14/17 04:19 Troponin/CKMB CK-MB (CK-2) 0.8 ng/mL (0-6.6) 11/06/17 13:54 Troponin I 0.028 ng/mL (< 0.028) 11/06/17 22:03 - Assessment/Plan Pt. seen and eval. by me. I agree with the A/P by the TRACK COACH. He says that he is still weak. Exam is unremarkable. Site of the implantable device is clean and dry.i will continue to monitor him transtelephonically.
[2017-11-14] MEDS ORDERED: Amlodipine 5 MG TAB PO SCH (12:00)
[2017-11-14] MEDS: Lidocaine 5% Patch TD SCH (12:14)
--- NOTE | 2017-11-14 15:12 | PDOC.PN ---
- Subjective Encounter Start Date: 11/14/17 Encounter Start Time: 15:11 Subjective: C/o "shakiness" when ambulating. No acute events overnight. - Objective Resuscitation Status: Resuscitation Status FULL:Full Resuscitation MAR Reviewed: Yes Vital Signs & Weight: Vital Signs (12 hours) Temp Pulse Resp BP BP Pulse Ox 11/14/17 13:40 80 16 11/14/17 12:14 166/104 H 11/14/17 11:24 98.2 F 83 16 166/104 H 99 11/14/17 09:04 157/93 H 11/14/17 08:00 98.0 F 89 18 157/93 H 96 11/14/17 06:50 96 11/14/17 06:47 90 16 11/14/17 04:00 97.4 F L 89 18 147/92 H 100 Weight Weight 217 lb Most Recent Monitor Data Heart Rate from ECG 112 NIBP 157/109 NIBP BP-Mean 122 Respiration from ECG 19 SpO2 100 I&O: 11/13/17 11/14/17 11/15/17 06:59 06:59 06:59 Intake Total 2065 590 Balance 2065 590 Result Diagrams: 11/14/17 04:19 11/14/17 04:19 Phys Exam - Physical Examination Constitutional: NAD HEENT: PERRLA, moist MMs, sclera anicteric Neck: supple, full ROM Respiratory: no wheezing, no rales, no rhonchi, clear to auscultation bilateral Cardiovascular: RRR, no significant murmur, no rub Gastrointestinal: soft, non-tender, no distention, positive bowel sounds Musculoskeletal: no edema, pulses present Neurological: moves all 4 limbs Psychiatric: normal affect, A&O x 3 Skin: no rash, normal turgor Dx/Plan (1) HTN (hypertension) Code(s): I10 - ESSENTIAL (PRIMARY) HYPERTENSION Status: Chronic Qualifiers: Hypertension type: essential hypertension Qualified Code(s): I10 - Essential (primary) hypertension Plan: Achieving better control. Continue amlodipine, HCTZ and lisinopril. Clonidine PRN. Comment: On home Clonidine (PRN), Lisinopril. HCTZ added due to poor control. (2) AV block Code(s): I44.30 - UNSPECIFIED ATRIOVENTRICULAR BLOCK Status: Acute Comment: First degree seeon on 12 lead EKG, pt has had 2nd degree and bradycardia on monitors. Cards and EP on board. had cardiac cath 11/13 and EP study as well. s/p implantable device. Tolerated well. (3) Chronic pain syndrome Code(s): G89.4 - CHRONIC PAIN SYNDROME Status: Chronic Comment: Will continue to de-escalate narcotic requirements. (4) Seizure Code(s): R56.9 - UNSPECIFIED CONVULSIONS Status: Acute Plan: Continue Keppra. Comment: Seizure free on keppra. EEG showed no seizures. he had slightly decreased voltage and frontal fast activity. (5) Hypokalemia Code(s): E87.6 - HYPOKALEMIA Status: Acute Plan: Improving with repletion. Comment: Repleted. Check serum magnesium (6) Aspiration pneumonia Code(s): J69.0 - PNEUMONITIS DUE TO INHALATION OF FOOD AND VOMIT Status: Resolved Qualifiers: Laterality: unspecified laterality Plan: Off antibiotics. Resolved. Comment: likely aspiration off abx without further ssx of infection likely aspiration pneumonitis (7) Constipation Code(s): K59.00 - CONSTIPATION, UNSPECIFIED Status: Resolved Qualifiers: Constipation type: drug induced constipation Qualified Code(s): K59.03 - Drug induced constipation Comment: Resolved with bowel regimen: Multifactorial: decreased mobility, narcotic medication use (8) Acute respiratory failure with hypoxia and hypercarbia Code(s): J96.01 - ACUTE RESPIRATORY FAILURE WITH HYPOXIA; J96.02 - ACUTE RESPIRATORY FAILURE WITH HYPERCAPNIA Status: Resolved Comment: appreciate pulmonary c/s Extubated successfully 11/07/17: continue pulm support, O2 NC, BiPAP prn D/W pt need for CPAP at home for his chronic HILL Will need outpatient sleep study. - Plan cont current plan of care, plan discussed w/ family, PT/OT PT/OT eval -: Case management involvement depending on PT recs * .
[2017-11-14] MEDS: cloNIDine 0.1 MG TAB PO PRN (20:28)
[2017-11-14] MEDS: Lidocaine Patch Removal 1 EACH TOP SCH (20:34)
--- NOTE | 2017-11-15 00:15 | PRG ---
DATE OF SERVICE: 11/14/2017 ELECTROPHYSIOLOGY FOLLOWUP NOTE SUBJECTIVE: Mr. George seems to be doing well one day after his EP study and loop recorder insertion. OBJECTIVE: VITAL SIGNS: Blood pressure is 166/104, heart rate 80, respiratory rate 16, temperature 98.2 degrees Fahrenheit. GENERAL: Alert and oriented man in no apparent distress. NECK: Supple. Jugular veins are not distended. CHEST: Coarse without crackles. CARDIOVASCULAR: Heart sounds are regular to rate and rhythm. No murmur or gallop. ABDOMEN: Benign. Bowel sounds positive. EXTREMITIES: Lower extremities without edema, clubbing, or cyanosis. Telemetry strips reviewed, revealed no significant arrhythmias. No gino or tachyarrhythmias are noted. Mild sinus tachycardia at times with sinus rhythm other times. LABORATORY DATA: CBC with hemoglobin 13.1, ; white cell count 6.5; platelet count is 303. The potassium today is , sodium 140, BUN is 15, creatinine 0.84. ASSESSMENT AND PLAN: Mr. George is a pleasant 47-year-old man with prior history of recurrent syncopal spells, also Mobitz type 1 second-degree AV block well documented in his telemetry with a baseline first-degree AV block. An EP study demonstrating no inducible atrial or ventricular arrhythmias. Also, he had normal AV hailey and his-purkinje conduction properties. Hence, we proceeded with a loop recorder implant, which he tolerated well, currently asymptomatic. The catheter insertion sites are without reaction. PLAN: Routine followup for loop recorder with Dr. Puga. Follow up in EP as necessary. MARY
[2017-11-15 05:34] LABS: #Basophils 0.1 thou/uL (0.0-0.2); #Eosinphils 0.2 thou/uL (0.0-0.7); #Lymphocytes 2.3 thou/uL (1.20-3.40); #Monocytes 0.6 thou/uL (0.11-0.59); #Neutrophils 3.1 thou/uL (1.40-6.50); %Basophils 1.1 % (0.0-1.0); %Eosinophils 2.6 % (0.0-10.0); %Lymphocytes 37.2 % (21.0-51.0); %Monocytes 9.9 % (0.0-10.0); %Neutrophils 49.3 % (42.0-75.0); Hemoglobin 12.3 g/dL (14.0-18.0); Mean Corpuscular HGB CONC 34.2 g/dL (32.0-36.0); Mean Corpuscular Hemoglobin 33.3 pg (27.0-31.0); Mean Corpuscular Volume 97.3 fl (80.0-94.0); Mean Platelet Volume 7.2 fL (7.4-10.4); Platelet Count 300 thou/uL (130-400); RBC Distribution Width 12.2 % (11.5-14.5); Red Blood Cell (RBC) Count 3.68 mill/uL (4.70-6.10); White Blood Cell (WBC) Count 6.3 thou/uL (4.8-10.8)
[2017-11-15 05:54] LABS: Anion Gap 14 mmol/L (10-20); BUN (Urea Nitrogen) 12 mg/dL (8.9-20.6); Calc. Creatinine Clearance 164 mL/min (70-130); Calcium 9.8 mg/dL (7.8-10.44); Carbon Dioxide 25 mmol/L (22-29); Chloride 103 mmol/L (98-107); Estimated GFR-MDRD Greater than 90; Glucose 107 mg/dL (70-105); Magnesium 2.1 mg/dL (1.6-2.6); Potassium 3.8 mmol/L (3.5-5.1); Sodium 138 mmol/L (136-145)
[2017-11-15] MEDS: HYDROcodone/Acetaminophen 7.5/325 mg Tablet PO PRN ×5 (06:02→22:57)
[2017-11-15] MEDS ORDERED: Amlodipine 5 MG TAB PO SCH (09:00)
[2017-11-15] MEDS: Senokot S 8.6-50 MG TAB PO SCH ×2 (09:17→20:35)
[2017-11-15] MEDS: Ondansetron HCl/PF 4 MG/2 ML Vial IVP PRN (09:17)
[2017-11-15] MEDS: Polyethylene Glycol 3350 17 GM Packet PO SCH (09:18)
[2017-11-15] MEDS: Hydrochlorothiazide 25 MG TAB PO SCH (09:21)
[2017-11-15] MEDS: Potassium Chloride 20 MEQ TAB PO SCH ×2 (09:24→17:46)
[2017-11-15] MEDS: Lisinopril 20 MG TAB PO SCH ×2 (09:25→20:36)
[2017-11-15] MEDS: Famotidine 20 MG TAB PO SCH ×2 (09:25→20:36)
[2017-11-15] MEDS: Lidocaine 5% Patch TD SCH (09:26)
[2017-11-15] MEDS: levETIRAcetam 500 MG TAB PO SCH ×2 (09:26→20:36)
[2017-11-15] MEDS: Heparin 5,000 UNITS/ML VIAL SC SCH ×3 (09:26→20:37)
--- NOTE | 2017-11-15 11:54 | PDOC.PN ---
- Subjective Encounter Start Date: 11/15/17 Encounter Start Time: 11:53 Subjective: No new complaints today. No acute events overnight - Objective Resuscitation Status: Resuscitation Status FULL:Full Resuscitation MAR Reviewed: Yes Vital Signs & Weight: Vital Signs (12 hours) Temp Pulse Resp BP BP Pulse Ox 11/15/17 11:48 97.6 F 83 18 146/84 H 97 11/15/17 09:26 78 140/82 11/15/17 09:25 140/82 11/15/17 07:33 98.4 F 78 16 140/82 98 11/15/17 07:07 98 11/15/17 07:04 82 16 11/15/17 04:00 98 F 77 20 147/87 H 100 11/15/17 00:00 98.1 F 100 20 137/74 96 Weight Weight 217 lb 6.4 oz Most Recent Monitor Data Heart Rate from ECG 112 NIBP 157/109 NIBP BP-Mean 122 Respiration from ECG 19 SpO2 100 I&O: 11/14/17 11/15/17 11/16/17 06:59 06:59 06:59 Intake Total 590 1492 Balance 590 1492 Result Diagrams: 11/15/17 04:44 11/15/17 04:44 Phys Exam - Physical Examination Constitutional: NAD HEENT: PERRLA, moist MMs, sclera anicteric Neck: supple, full ROM Respiratory: no wheezing, no rales, no rhonchi, clear to auscultation bilateral Cardiovascular: RRR, no significant murmur, no rub Gastrointestinal: soft, non-tender, no distention, positive bowel sounds Musculoskeletal: no edema, pulses present Neurological: non-focal, moves all 4 limbs Psychiatric: normal affect, A&O x 3 Skin: no rash, normal turgor Dx/Plan (1) HTN (hypertension) Code(s): I10 - ESSENTIAL (PRIMARY) HYPERTENSION Status: Chronic Qualifiers: Hypertension type: essential hypertension Qualified Code(s): I10 - Essential (primary) hypertension Comment: On home Clonidine (PRN), Lisinopril. HCTZ, and amlodipine. (2) AV block Code(s): I44.30 - UNSPECIFIED ATRIOVENTRICULAR BLOCK Status: Acute Plan: No acute events on tele. Patient asymptomatic. Comment: First degree seen on 12 lead EKG. Pt has had 2nd degree and bradycardia on monitors. Cards and EP on board. had cardiac cath 11/13 and EP study as well. s/p implantable device. Tolerated well. Asymptomatic. (3) Chronic pain syndrome Code(s): G89.4 - CHRONIC PAIN SYNDROME Status: Chronic Plan: Continue current mx Comment: Will continue to de-escalate narcotic requirements. (4) Seizure Code(s): R56.9 - UNSPECIFIED CONVULSIONS Status: Acute Comment: Seizure free on keppra. EEG showed no seizures. he had slightly decreased voltage and frontal fast activity. (5) Hypokalemia Code(s): E87.6 - HYPOKALEMIA Status: Acute Plan: Continue current mx Comment: Repleted. Check serum magnesium (6) Aspiration pneumonia Code(s): J69.0 - PNEUMONITIS DUE TO INHALATION OF FOOD AND VOMIT Status: Resolved Qualifiers: Laterality: unspecified laterality Plan: Resolved. Comment: likely aspiration off abx without further ssx of infection likely aspiration pneumonitis (7) Constipation Code(s): K59.00 - CONSTIPATION, UNSPECIFIED Status: Resolved Qualifiers: Constipation type: drug induced constipation Qualified Code(s): K59.03 - Drug induced constipation Plan: Resolved. Comment: Resolved with bowel regimen: Multifactorial: decreased mobility, narcotic medication use (8) Acute respiratory failure with hypoxia and hypercarbia Code(s): J96.01 - ACUTE RESPIRATORY FAILURE WITH HYPOXIA; J96.02 - ACUTE RESPIRATORY FAILURE WITH HYPERCAPNIA Status: Resolved Plan: Continue current mx Comment: Extubated successfully 11/07/17: continue pulm support, O2 NC, BiPAP prn D/W pt need for CPAP at home for his chronic HILL Will need outpatient sleep study. - Plan cont current plan of care, plan discussed w/ family, PT/OT, manager social responsibility Dispo depending on response to PT. Likely JEL[facility] v outpt OT/PT * .
[2017-11-15] MEDS ORDERED: Amlodipine 10 MG TAB PO SCH (12:15)
[2017-11-15] MEDS: Lorazepam 2 MG/ML VIAL SLOW IVP PRN ×2 (13:24→22:58)
--- NOTE | 2017-11-15 16:50 | PDOC.CTH ---
Cardiology Progress Note - Subjective No cardiac complaints or events. - Objective Vital Signs Temp Pulse Pulse Pulse Resp BP BP 11/15/17 15:44 98.4 F 90 18 11/15/17 14:55 86 16 11/15/17 13:24 74 159/95 H 11/15/17 11:48 97.6 F 83 18 11/15/17 10:57 82 86 168/115 H 11/15/17 09:26 78 140/82 11/15/17 09:25 140/82 11/15/17 08:00 98.4 F 90 18 11/15/17 07:33 98.4 F 78 16 11/15/17 07:07 11/15/17 07:04 82 16 BP BP Pulse Ox 11/15/17 15:44 138/75 98 11/15/17 14:55 11/15/17 13:24 11/15/17 11:48 146/84 H 97 11/15/17 10:57 158/87 H 11/15/17 09:26 11/15/17 09:25 11/15/17 08:00 98 11/15/17 07:33 140/82 98 11/15/17 07:07 98 11/15/17 07:04 Weight 217 lb 6.4 oz 11/14/17 11/15/17 11/16/17 06:59 06:59 06:59 Intake Total 590 1492 Balance 590 1492 - Labs Result Diagrams: 11/15/17 04:44 11/15/17 04:44 Troponin/CKMB CK-MB (CK-2) 0.8 ng/mL (0-6.6) 11/06/17 13:54 Troponin I 0.028 ng/mL (< 0.028) 11/06/17 22:03 - Assessment/Plan 1. 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 S/P LINQ placement on 11/13/17. LINQ education was given to the pt and family 2. 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 S/P LINQ placement on 11/13/17. 3. HTN - Start Norvasc 5mg PO daily; cont. monitor 4. HILL - On Cpap at HS; possible outpatient sleep study MAR reviewed *Eho on 11/13/17 showed EF 50-55% * Cath on 11/03/17 showed normal coronary arteries * From Cardiac standpoint, the pt is stable to tx to rehab; The pt will f/u with Dr Puga' office within 10 days for the site check and until he finds Cardiologists in [place] for his LINQ management. I will sign off. Review of Systems - Review of Systems Respiratory: reports: no symptoms reported Cardiac (ROS): reports: no symptoms reported ABD/GI: reports: nausea : reports: no symptoms reported Musculoskeletal: reports: other (motor weakness.) Neurological: reports: weakness
[2017-11-15] MEDS: Lidocaine Patch Removal 1 EACH TOP SCH (21:03)
--- NOTE | 2017-11-15 21:36 | EKG ---
Test Reason : Blood Pressure : / mmHG Vent. Rate : 127 BPM Atrial Rate : 127 BPM P-R Int : 154 ms QRS Dur : 106 ms QT Int : 308 ms P-R-T Axes : 073 090 053 degrees QTc Int : 447 ms Sinus tachycardia Rightward axis Borderline ECG Confirmed by TALITA COLINDRES, CORINNE ([id number]), make up editor MARILYN DIEZ ([id number]) on 11/15/2017 9:36:23 PM Referred By: Confirmed By:CORINNE SANON MD
[2017-11-16] MEDS: HYDROcodone/Acetaminophen 7.5/325 mg Tablet PO PRN ×5 (05:06→22:15)
[2017-11-16 05:29] LABS: #Basophils 0.1 thou/uL (0.0-0.2); #Eosinphils 0.2 thou/uL (0.0-0.7); #Lymphocytes 1.9 thou/uL (1.20-3.40); #Monocytes 0.5 thou/uL (0.11-0.59); #Neutrophils 3.2 thou/uL (1.40-6.50); %Basophils 1.2 % (0.0-1.0); %Eosinophils 3.2 % (0.0-10.0); %Lymphocytes 32.6 % (21.0-51.0); %Monocytes 8.9 % (0.0-10.0); %Neutrophils 54.1 % (42.0-75.0); Hemoglobin 13.1 g/dL (14.0-18.0); Mean Corpuscular HGB CONC 34.2 g/dL (32.0-36.0); Mean Corpuscular Hemoglobin 33.4 pg (27.0-31.0); Mean Corpuscular Volume 97.7 fl (80.0-94.0); Platelet Count 340 thou/uL (130-400); RBC Distribution Width 12.1 % (11.5-14.5); Red Blood Cell (RBC) Count 3.92 mill/uL (4.70-6.10)
[2017-11-16 05:53] LABS: Anion Gap 14 mmol/L (10-20); BUN (Urea Nitrogen) 13 mg/dL (8.9-20.6); Calc. Creatinine Clearance 139 mL/min (70-130); Calcium 10.3 mg/dL (7.8-10.44); Carbon Dioxide 28 mmol/L (22-29); Chloride 100 mmol/L (98-107); Estimated GFR-MDRD 89; Glucose 97 mg/dL (70-105); Magnesium 2.2 mg/dL (1.6-2.6); Potassium 4.4 mmol/L (3.5-5.1); Sodium 138 mmol/L (136-145)
[2017-11-16] MEDS: Senokot S 8.6-50 MG TAB PO SCH ×2 (08:41→20:33)
[2017-11-16] MEDS: Polyethylene Glycol 3350 17 GM Packet PO SCH (08:47)
[2017-11-16] MEDS: Potassium Chloride 20 MEQ TAB PO SCH (08:48)
[2017-11-16] MEDS: Lisinopril 20 MG TAB PO SCH ×2 (08:48→20:34)
[2017-11-16] MEDS: levETIRAcetam 500 MG TAB PO SCH ×2 (08:48→20:34)
[2017-11-16] MEDS: Amlodipine 10 MG TAB PO SCH (08:49)
[2017-11-16] MEDS: Heparin 5,000 UNITS/ML VIAL SC SCH ×3 (08:50→20:33)
[2017-11-16] MEDS: Hydrochlorothiazide 25 MG TAB PO SCH (08:50)
[2017-11-16] MEDS: Famotidine 20 MG TAB PO SCH ×2 (08:50→20:33)
[2017-11-16] MEDS: Lidocaine 5% Patch TD SCH (08:50)
[2017-11-16] MEDS: Ondansetron HCl/PF 4 MG/2 ML Vial IVP PRN ×2 (09:32→17:18)
[2017-11-16] MEDS: Lorazepam 2 MG/ML VIAL SLOW IVP PRN ×2 (10:52→22:16)
--- NOTE | 2017-11-16 11:56 | PDOC.PN ---
- Subjective Encounter Start Date: 11/16/17 Encounter Start Time: 11:58 Subjective: No new complaints. has been participating with PT -: No acute events overnight. - Objective Resuscitation Status: Resuscitation Status FULL:Full Resuscitation MAR Reviewed: Yes Vital Signs & Weight: Vital Signs (12 hours) Temp Pulse Resp BP Pulse Ox 11/16/17 08:49 80 11/16/17 08:40 97.9 F 84 18 132/99 H 98 11/16/17 07:18 96 11/16/17 07:16 80 12 11/16/17 04:00 98.1 F 73 20 127/80 100 11/16/17 00:36 96 11/15/17 23:59 97.9 F 72 18 149/90 H 100 Weight Weight 218 lb 4.8 oz Most Recent Monitor Data Heart Rate from ECG 112 NIBP 157/109 NIBP BP-Mean 122 Respiration from ECG 19 SpO2 100 I&O: 11/15/17 11/16/17 11/17/17 06:59 06:59 06:59 Intake Total 1492 1522 Balance 1492 1522 Result Diagrams: 11/16/17 04:56 11/16/17 04:56 Phys Exam - Physical Examination Constitutional: NAD HEENT: PERRLA, moist MMs, sclera anicteric Neck: supple, full ROM Respiratory: no wheezing, no rales, no rhonchi, clear to auscultation bilateral Cardiovascular: RRR, no significant murmur, no rub Gastrointestinal: soft, non-tender, no distention, positive bowel sounds Musculoskeletal: no edema, pulses present Psychiatric: normal affect, A&O x 3 Skin: no rash, normal turgor Dx/Plan (1) HTN (hypertension) Code(s): I10 - ESSENTIAL (PRIMARY) HYPERTENSION Status: Chronic Qualifiers: Hypertension type: essential hypertension Qualified Code(s): I10 - Essential (primary) hypertension Plan: Improving. Continue current therapy Comment: On home Clonidine (PRN), Lisinopril. HCTZ, and amlodipine. (2) AV block Code(s): I44.30 - UNSPECIFIED ATRIOVENTRICULAR BLOCK Status: Acute Comment: First degree seen on 12 lead EKG. Pt has had 2nd degree and bradycardia on monitors. Cards and EP on board. had cardiac cath 11/13 and EP study as well. Eho on 11/13/17 showed EF 50-55% Cath on 11/13/17 showed normal coronary arteries s/p implantable device. Tolerated well. Asymptomatic. (3) Chronic pain syndrome Code(s): G89.4 - CHRONIC PAIN SYNDROME Status: Chronic Comment: Will continue to de-escalate narcotic requirements. (4) Seizure Code(s): R56.9 - UNSPECIFIED CONVULSIONS Status: Acute Comment: Likely 2/2 type 2 AVB Seizure free on keppra. EEG showed no seizures. he had slightly decreased voltage and frontal fast activity. (5) Hypokalemia Code(s): E87.6 - HYPOKALEMIA Status: Resolved Comment: Repleted. (6) Aspiration pneumonia Code(s): J69.0 - PNEUMONITIS DUE TO INHALATION OF FOOD AND VOMIT Status: Resolved Qualifiers: Laterality: unspecified laterality Comment: likely aspiration off abx without further ssx of infection likely aspiration pneumonitis (7) Constipation Code(s): K59.00 - CONSTIPATION, UNSPECIFIED Status: Resolved Qualifiers: Constipation type: drug induced constipation Qualified Code(s): K59.03 - Drug induced constipation Comment: Resolved with bowel regimen: Multifactorial: decreased mobility, narcotic medication use (8) Acute respiratory failure with hypoxia and hypercarbia Code(s): J96.01 - ACUTE RESPIRATORY FAILURE WITH HYPOXIA; J96.02 - ACUTE RESPIRATORY FAILURE WITH HYPERCAPNIA Status: Resolved Comment: Extubated successfully 11/07/17: continue pulm support, O2 NC, BiPAP prn D/W pt need for CPAP at home for his chronic HILL Will need outpatient sleep study. - Plan cont current plan of care, plan discussed w/ family, PT/OT Awaiting placement at [facility]. * .
[2017-11-16] MEDS: Lidocaine Patch Removal 1 EACH TOP SCH (20:34)
[2017-11-17] MEDS: HYDROcodone/Acetaminophen 7.5/325 mg Tablet PO PRN ×5 (03:58→22:17)
[2017-11-17 05:54] LABS: #Eosinphils 0.2 thou/uL (0.0-0.7); #Lymphocytes 1.8 thou/uL (1.20-3.40); #Monocytes 0.7 thou/uL (0.11-0.59); #Neutrophils 3.7 thou/uL (1.40-6.50); %Basophils 0.7 % (0.0-1.0); %Eosinophils 2.4 % (0.0-10.0); %Lymphocytes 27.7 % (21.0-51.0); %Monocytes 11.3 % (0.0-10.0); %Neutrophils 57.8 % (42.0-75.0); Hemoglobin 13.5 g/dL (14.0-18.0); Mean Corpuscular HGB CONC 34.5 g/dL (32.0-36.0); Mean Corpuscular Hemoglobin 33.6 pg (27.0-31.0); Mean Corpuscular Volume 97.5 fl (80.0-94.0); Mean Platelet Volume 6.8 fL (7.4-10.4); Platelet Count 388 thou/uL (130-400); RBC Distribution Width 11.8 % (11.5-14.5); Red Blood Cell (RBC) Count 4.01 mill/uL (4.70-6.10); White Blood Cell (WBC) Count 6.4 thou/uL (4.8-10.8)
[2017-11-17 06:08] LABS: Anion Gap 11 mmol/L (10-20); BUN (Urea Nitrogen) 14 mg/dL (8.9-20.6); Calc. Creatinine Clearance 109 mL/min (70-130); Calcium 10.4 mg/dL (7.8-10.44); Carbon Dioxide 31 mmol/L (22-29); Chloride 97 mmol/L (98-107); Estimated GFR-MDRD 71; Glucose 117 mg/dL (70-105); Magnesium 2.3 mg/dL (1.6-2.6); Potassium 4.1 mmol/L (3.5-5.1); Sodium 135 mmol/L (136-145)
[2017-11-17] MEDS: Ondansetron HCl/PF 4 MG/2 ML Vial IVP PRN ×2 (06:12→13:25)
[2017-11-17] MEDS ORDERED: Pantoprazole 40 MG VIAL IVP SCH (08:45)
[2017-11-17] MEDS: Heparin 5,000 UNITS/ML VIAL SC SCH ×3 (09:18→20:48)
[2017-11-17] MEDS: Lidocaine 5% Patch TD SCH (09:18)
[2017-11-17] MEDS: Metoclopramide HCl 10 MG/2 ML VIAL IVP PRN ×2 (10:00→16:45)
[2017-11-17] MEDS: Amlodipine 10 MG TAB PO SCH (10:08)
[2017-11-17] MEDS: Famotidine 20 MG TAB PO SCH ×2 (10:08→20:49)
[2017-11-17] MEDS: levETIRAcetam 500 MG TAB PO SCH ×2 (10:08→20:49)
[2017-11-17] MEDS: Potassium Chloride 20 MEQ TAB PO SCH (10:08)
[2017-11-17] MEDS: Senokot S 8.6-50 MG TAB PO SCH ×2 (10:09→20:49)
[2017-11-17] MEDS: Lisinopril 20 MG TAB PO SCH ×2 (10:09→20:50)
[2017-11-17] MEDS: Hydrochlorothiazide 25 MG TAB PO SCH (10:09)
[2017-11-17] MEDS: Polyethylene Glycol 3350 17 GM Packet PO SCH (10:10)
--- NOTE | 2017-11-17 10:17 | PDOC.PN ---
- Subjective Encounter Start Date: 11/17/17 Encounter Start Time: 10:17 Subjective: Had episodes of nausea and vomiting after breakfast. -: No acute events overnight. - Objective Resuscitation Status: Resuscitation Status FULL:Full Resuscitation MAR Reviewed: Yes Vital Signs & Weight: Vital Signs (12 hours) Temp Pulse Resp BP BP Pulse Ox 11/17/17 10:09 143/78 H 11/17/17 10:08 86 11/17/17 08:00 97.6 F 86 16 113/75 100 11/17/17 06:46 16 11/17/17 03:52 97.5 F L 73 16 97/56 L 100 11/17/17 01:22 81 13 99 11/17/17 01:20 81 13 99 11/16/17 23:37 97.7 F 84 16 123/71 99 Weight Weight 208 lb Most Recent Monitor Data Heart Rate from ECG 112 NIBP 157/109 NIBP BP-Mean 122 Respiration from ECG 19 SpO2 100 I&O: 11/16/17 11/17/17 11/18/17 06:59 06:59 06:59 Intake Total 1522 920 Output Total 1250 Balance 1522 -330 Result Diagrams: 11/17/17 05:35 11/17/17 05:36 Phys Exam - Physical Examination Constitutional: NAD HEENT: PERRLA, moist MMs, sclera anicteric Neck: supple, full ROM Respiratory: no wheezing, no rales, no rhonchi, clear to auscultation bilateral Cardiovascular: RRR, no significant murmur, no rub Gastrointestinal: soft, non-tender, no distention, positive bowel sounds Musculoskeletal: no edema, pulses present Neurological: non-focal, moves all 4 limbs Psychiatric: normal affect, A&O x 3 Skin: no rash, normal turgor Dx/Plan (1) HTN (hypertension) Code(s): I10 - ESSENTIAL (PRIMARY) HYPERTENSION Status: Chronic Qualifiers: Hypertension type: essential hypertension Qualified Code(s): I10 - Essential (primary) hypertension Plan: Controlled. Continue current meds. Comment: On home Clonidine (PRN), Lisinopril. HCTZ, and amlodipine. (2) AV block Code(s): I44.30 - UNSPECIFIED ATRIOVENTRICULAR BLOCK Status: Acute Plan: Asymptomatic. continue current regimen. Comment: First degree seen on 12 lead EKG. Pt has had 2nd degree and bradycardia on monitors. Cards and EP on board. had cardiac cath 11/13 and EP study as well. Eho on 11/13/17 showed EF 50-55% Cath on 11/13/17 showed normal coronary arteries s/p implantable device. Tolerated well. Asymptomatic. (3) Chronic pain syndrome Code(s): G89.4 - CHRONIC PAIN SYNDROME Status: Chronic Comment: Will continue to de-escalate narcotic requirements. (4) Seizure Code(s): R56.9 - UNSPECIFIED CONVULSIONS Status: Acute Plan: Remains seizure free. Continue current therapy. Comment: Likely 2/2 type 2 AVB Seizure free on keppra. EEG showed no seizures. he had slightly decreased voltage and frontal fast activity. (5) Hypokalemia Code(s): E87.6 - HYPOKALEMIA Status: Resolved Comment: Repleted. (6) Aspiration pneumonia Code(s): J69.0 - PNEUMONITIS DUE TO INHALATION OF FOOD AND VOMIT Status: Resolved Qualifiers: Laterality: unspecified laterality Comment: likely aspiration off abx without further ssx of infection likely aspiration pneumonitis (7) Acute respiratory failure with hypoxia and hypercarbia Code(s): J96.01 - ACUTE RESPIRATORY FAILURE WITH HYPOXIA; J96.02 - ACUTE RESPIRATORY FAILURE WITH HYPERCAPNIA Status: Resolved Comment: Extubated successfully 11/07/17: continue pulm support, O2 NC, BiPAP prn D/W pt need for CPAP at home for his chronic HILL Will need outpatient sleep study. - Plan cont current plan of care, plan discussed w/ family, PT/OT, social services aide * .
[2017-11-17 13:12] VITALS: BMI 28.2
[2017-11-17] MEDS: Lorazepam 2 MG/ML VIAL SLOW IVP PRN ×2 (13:25→22:17)
[2017-11-17] MEDS: Lidocaine Patch Removal 1 EACH TOP SCH (20:50)
[2017-11-18] MEDS: Potassium Chloride 20 MEQ TAB PO SCH (08:33)
[2017-11-18] MEDS: Lisinopril 20 MG TAB PO SCH ×2 (08:33→20:10)
[2017-11-18] MEDS: Hydrochlorothiazide 25 MG TAB PO SCH (08:33)
[2017-11-18] MEDS: levETIRAcetam 500 MG TAB PO SCH ×2 (08:33→20:09)
[2017-11-18] MEDS: Famotidine 20 MG TAB PO SCH ×2 (08:33→20:09)
[2017-11-18] MEDS: Amlodipine 10 MG TAB PO SCH (08:34)
[2017-11-18] MEDS: Senokot S 8.6-50 MG TAB PO SCH ×2 (08:34→20:09)
[2017-11-18] MEDS: HYDROcodone/Acetaminophen 7.5/325 mg Tablet PO PRN ×4 (08:34→21:23)
[2017-11-18] MEDS: Lidocaine 5% Patch TD SCH (08:37)
[2017-11-18] MEDS: Polyethylene Glycol 3350 17 GM Packet PO SCH (08:37)
[2017-11-18] MEDS: Heparin 5,000 UNITS/ML VIAL SC SCH ×3 (08:37→20:08)
[2017-11-18] MEDS: Ondansetron HCl/PF 4 MG/2 ML Vial IVP PRN (10:08)
--- NOTE | 2017-11-18 15:41 | PDOC.PN ---
- Subjective Encounter Start Date: 11/18/17 Encounter Start Time: 15:40 Subjective: No new complaints -: No acute events overnight. - Objective Resuscitation Status: Resuscitation Status FULL:Full Resuscitation MAR Reviewed: Yes Vital Signs & Weight: Vital Signs (12 hours) Temp Pulse Pulse Pulse Resp BP BP 11/18/17 15:25 97.7 F 90 18 11/18/17 13:57 96 96 112/57 L 11/18/17 11:15 97.9 F 96 14 11/18/17 08:34 96 11/18/17 08:33 117/63 11/18/17 08:00 97.3 F L 96 16 11/18/17 07:15 97.3 F L 96 16 11/18/17 06:43 11/18/17 06:41 85 12 BP BP Pulse Ox Pulse Ox Pulse Ox 11/18/17 15:25 101/60 99 11/18/17 13:57 113/57 L 100 100 11/18/17 11:15 100/51 L 98 11/18/17 08:34 11/18/17 08:33 11/18/17 08:00 100 11/18/17 07:15 112/57 L 100 11/18/17 06:43 100 11/18/17 06:41 100 Weight Admit Weight 217 lb 9.5 oz Weight 208 lb Most Recent Monitor Data Heart Rate from ECG 112 NIBP 157/109 NIBP BP-Mean 122 Respiration from ECG 19 SpO2 100 I&O: 11/17/17 11/18/17 11/19/17 06:59 06:59 06:59 Intake Total 920 720 480 Output Total 1250 500 Balance -330 220 480 Result Diagrams: 11/17/17 05:35 11/17/17 05:36 Phys Exam - Physical Examination Constitutional: NAD HEENT: PERRLA, moist MMs, sclera anicteric Neck: supple, full ROM Respiratory: no wheezing, no rales, no rhonchi, clear to auscultation bilateral Cardiovascular: RRR, no significant murmur, no rub Gastrointestinal: soft, non-tender, no distention, positive bowel sounds Musculoskeletal: no edema, pulses present Neurological: non-focal, moves all 4 limbs Psychiatric: normal affect, A&O x 3 Skin: no rash, normal turgor Dx/Plan (1) HTN (hypertension) Code(s): I10 - ESSENTIAL (PRIMARY) HYPERTENSION Status: Chronic Qualifiers: Hypertension type: essential hypertension Qualified Code(s): I10 - Essential (primary) hypertension Plan: Controlled. Continue current management. Comment: On home Clonidine (PRN), Lisinopril. HCTZ, and amlodipine. (2) AV block Code(s): I44.30 - UNSPECIFIED ATRIOVENTRICULAR BLOCK Status: Acute Plan: Asymptomatic. Comment: First degree seen on 12 lead EKG. Pt has had 2nd degree and bradycardia on monitors. Cards and EP on board. had cardiac cath 11/13 and EP study as well. Eho on 11/13/17 showed EF 50-55% Cath on 11/13/17 showed normal coronary arteries s/p implantable device. Tolerated well. Asymptomatic. (3) Chronic pain syndrome Code(s): G89.4 - CHRONIC PAIN SYNDROME Status: Chronic Comment: Will continue to de-escalate narcotic requirements. (4) Seizure Code(s): R56.9 - UNSPECIFIED CONVULSIONS Status: Acute Comment: Likely 2/2 type 2 AVB Seizure free on keppra. EEG showed no seizures. he had slightly decreased voltage and frontal fast activity. (5) Aspiration pneumonia Code(s): J69.0 - PNEUMONITIS DUE TO INHALATION OF FOOD AND VOMIT Status: Resolved Qualifiers: Laterality: unspecified laterality Plan: Resolved. Comment: likely aspiration off abx without further ssx of infection likely aspiration pneumonitis (6) Acute respiratory failure with hypoxia and hypercarbia Code(s): J96.01 - ACUTE RESPIRATORY FAILURE WITH HYPOXIA; J96.02 - ACUTE RESPIRATORY FAILURE WITH HYPERCAPNIA Status: Resolved Comment: Extubated successfully 11/07/17: continue pulm support, O2 NC, BiPAP prn D/W pt need for CPAP at home for his chronic HILL Will need outpatient sleep study. - Plan cont current plan of care, plan discussed w/ family, PT/OT, social secretary * .
[2017-11-18] MEDS: Lidocaine Patch Removal 1 EACH TOP SCH (20:10)
[2017-11-18] MEDS: Lorazepam 2 MG/ML VIAL SLOW IVP PRN (21:24)
[2017-11-19] MEDS: HYDROcodone/Acetaminophen 7.5/325 mg Tablet PO PRN ×6 (01:16→23:13)
[2017-11-19] MEDS: Lorazepam 2 MG/ML VIAL SLOW IVP PRN ×3 (01:17→23:13)
[2017-11-19 06:07] LABS: Hemoglobin 14.4 g/dL (14.0-18.0); Mean Corpuscular HGB CONC 34.5 g/dL (32.0-36.0); Mean Corpuscular Hemoglobin 33.7 pg (27.0-31.0); Mean Corpuscular Volume 97.7 fl (80.0-94.0); Platelet Count 398 thou/uL (130-400); RBC Distribution Width 11.8 % (11.5-14.5); Red Blood Cell (RBC) Count 4.27 mill/uL (4.70-6.10); White Blood Cell (WBC) Count 5.8 thou/uL (4.8-10.8)
[2017-11-19 06:22] LABS: Anion Gap 13 mmol/L (10-20); BUN (Urea Nitrogen) 19 mg/dL (8.9-20.6); Calc. Creatinine Clearance 123 mL/min (70-130); Calcium 10.2 mg/dL (7.8-10.44); Carbon Dioxide 26 mmol/L (22-29); Chloride 98 mmol/L (98-107); Estimated GFR-MDRD 82; Glucose 108 mg/dL (70-105); Potassium 4.6 mmol/L (3.5-5.1); Sodium 132 mmol/L (136-145)
[2017-11-19] MEDS: levETIRAcetam 500 MG TAB PO SCH ×2 (08:05→19:22)
[2017-11-19] MEDS: Potassium Chloride 20 MEQ TAB PO SCH (08:05)
[2017-11-19] MEDS: Lisinopril 20 MG TAB PO SCH (08:07)
[2017-11-19] MEDS: Famotidine 20 MG TAB PO SCH ×2 (08:09→19:22)
[2017-11-19] MEDS: Hydrochlorothiazide 25 MG TAB PO SCH (08:09)
[2017-11-19] MEDS: Senokot S 8.6-50 MG TAB PO SCH ×2 (08:10→19:22)
[2017-11-19] MEDS: Heparin 5,000 UNITS/ML VIAL SC SCH ×3 (08:11→19:30)
[2017-11-19] MEDS: Amlodipine 10 MG TAB PO SCH (08:11)
[2017-11-19] MEDS: Polyethylene Glycol 3350 17 GM Packet PO SCH (08:12)
[2017-11-19] MEDS: Ondansetron HCl/PF 4 MG/2 ML Vial IVP PRN ×2 (09:45→18:31)
--- NOTE | 2017-11-19 14:50 | PDOC.PN ---
- Subjective Encounter Start Date: 11/19/17 Encounter Start Time: 14:51 Subjective: No acute events overnight. -: No complaints. -: Awaiting placement - Objective Resuscitation Status: Resuscitation Status FULL:Full Resuscitation MAR Reviewed: Yes Vital Signs & Weight: Vital Signs (12 hours) Temp Pulse Pulse Pulse Resp BP BP 11/19/17 13:29 97 18 11/19/17 12:00 98.7 F 107 H 18 11/19/17 08:22 107 H 97 129/82 11/19/17 08:11 109/75 11/19/17 08:07 109/75 11/19/17 08:00 98.4 F 99 20 11/19/17 07:30 98.4 F 99 20 11/19/17 03:17 13 BP BP Pulse Ox 11/19/17 13:29 97 11/19/17 12:00 127/73 11/19/17 08:22 119/74 11/19/17 08:11 11/19/17 08:07 11/19/17 08:00 99 11/19/17 07:30 104/61 99 11/19/17 03:17 100 Weight Admit Weight 217 lb 9.5 oz Weight 208 lb Most Recent Monitor Data Heart Rate from ECG 112 NIBP 157/109 NIBP BP-Mean 122 Respiration from ECG 19 SpO2 100 I&O: 11/18/17 11/19/17 11/20/17 06:59 06:59 06:59 Intake Total 720 1320 Output Total 500 400 Balance 220 920 Result Diagrams: 11/19/17 05:33 11/19/17 05:33 Phys Exam - Physical Examination Constitutional: NAD HEENT: PERRLA, moist MMs, sclera anicteric Neck: supple, full ROM Respiratory: no wheezing, no rales, no rhonchi, clear to auscultation bilateral Cardiovascular: RRR, no significant murmur, no rub Gastrointestinal: soft, non-tender, no distention, positive bowel sounds Musculoskeletal: no edema, pulses present Neurological: non-focal, moves all 4 limbs Skin: no rash, normal turgor Dx/Plan (1) HTN (hypertension) Code(s): I10 - ESSENTIAL (PRIMARY) HYPERTENSION Status: Chronic Qualifiers: Hypertension type: essential hypertension Qualified Code(s): I10 - Essential (primary) hypertension Comment: On home Clonidine (PRN), Lisinopril. HCTZ, and amlodipine. Blood pressure trending downwards, will reduce medication dosage and monitor. (2) AV block Code(s): I44.30 - UNSPECIFIED ATRIOVENTRICULAR BLOCK Status: Acute Plan: Asymptomatic Comment: First degree seen on 12 lead EKG. Pt has had 2nd degree and bradycardia on monitors. Cards and EP on board. had cardiac cath 11/13 and EP study as well. Eho on 11/13/17 showed EF 50-55% Cath on 11/13/17 showed normal coronary arteries s/p implantable device. Tolerated well. Asymptomatic. (3) Chronic pain syndrome Code(s): G89.4 - CHRONIC PAIN SYNDROME Status: Chronic Comment: Will continue to de-escalate narcotic requirements. (4) Seizure Code(s): R56.9 - UNSPECIFIED CONVULSIONS Status: Acute Comment: Likely 2/2 type 2 AVB Seizure free on keppra. EEG showed no seizures. he had slightly decreased voltage and frontal fast activity. (5) Aspiration pneumonia Code(s): J69.0 - PNEUMONITIS DUE TO INHALATION OF FOOD AND VOMIT Status: Resolved Qualifiers: Laterality: unspecified laterality Comment: likely aspiration off abx without further ssx of infection likely aspiration pneumonitis (6) Acute respiratory failure with hypoxia and hypercarbia Code(s): J96.01 - ACUTE RESPIRATORY FAILURE WITH HYPOXIA; J96.02 - ACUTE RESPIRATORY FAILURE WITH HYPERCAPNIA Status: Resolved Comment: Extubated successfully 11/07/17: continue pulm support, O2 NC, BiPAP prn D/W pt need for CPAP at home for his chronic HILL Will need outpatient sleep study. - Plan * .
[2017-11-19] MEDS: Lidocaine 5% Patch TD SCH (15:11)
[2017-11-19] MEDS: Lidocaine Patch Removal 1 EACH TOP SCH (21:00)
[2017-11-20] MEDS: HYDROcodone/Acetaminophen 7.5/325 mg Tablet PO PRN ×5 (06:02→23:02)
[2017-11-20] MEDS: Ondansetron HCl/PF 4 MG/2 ML Vial IVP PRN (08:40)
[2017-11-20] MEDS: Potassium Chloride 20 MEQ TAB PO SCH (08:41)
[2017-11-20] MEDS: levETIRAcetam 500 MG TAB PO SCH ×2 (08:41→21:23)
[2017-11-20] MEDS: Famotidine 20 MG TAB PO SCH (08:42)
[2017-11-20] MEDS: Senokot S 8.6-50 MG TAB PO SCH ×2 (08:42→21:24)
[2017-11-20] MEDS: Polyethylene Glycol 3350 17 GM Packet PO SCH (08:42)
[2017-11-20] MEDS: Amlodipine 5 MG TAB PO SCH (08:45)
[2017-11-20] MEDS: Lisinopril 20 MG TAB PO SCH (08:45)
[2017-11-20] MEDS: Heparin 5,000 UNITS/ML VIAL SC SCH ×3 (08:46→21:22)
[2017-11-20] MEDS: Hydrochlorothiazide 25 MG TAB PO SCH (08:46)
[2017-11-20] MEDS: Lidocaine 5% Patch TD SCH (08:47)
--- NOTE | 2017-11-20 13:16 | PDOC.PN ---
- Subjective Encounter Start Date: 11/20/17 Encounter Start Time: 13:15 Subjective: Still has intermittent nausea but overall improved. -: No acute events overnight. -: Improving with physical therapy. - Objective Resuscitation Status: Resuscitation Status FULL:Full Resuscitation MAR Reviewed: Yes Vital Signs & Weight: Vital Signs (12 hours) Temp Pulse Resp BP BP BP Pulse Ox 11/20/17 11:56 133/81 11/20/17 08:45 107 H 109/75 11/20/17 08:10 107 H 16 97 11/20/17 08:00 98.4 F 107 H 18 110/75 93 L Weight Admit Weight 217 lb 9.5 oz Weight 208 lb Most Recent Monitor Data Heart Rate from ECG 112 NIBP 157/109 NIBP BP-Mean 122 Respiration from ECG 19 SpO2 100 I&O: 11/19/17 11/20/17 11/21/17 06:59 06:59 06:59 Intake Total 1320 1680 Output Total 400 Balance 920 1680 Result Diagrams: 11/19/17 05:33 11/19/17 05:33 Phys Exam - Physical Examination Constitutional: NAD HEENT: PERRLA, moist MMs, sclera anicteric Neck: supple, full ROM Respiratory: no wheezing, no rales, no rhonchi, clear to auscultation bilateral Cardiovascular: RRR, no significant murmur, no rub Gastrointestinal: soft, non-tender, no distention, positive bowel sounds Musculoskeletal: no edema, pulses present Neurological: non-focal, moves all 4 limbs Psychiatric: normal affect, A&O x 3 Skin: no rash, normal turgor Dx/Plan (1) HTN (hypertension) Code(s): I10 - ESSENTIAL (PRIMARY) HYPERTENSION Status: Chronic Qualifiers: Hypertension type: essential hypertension Qualified Code(s): I10 - Essential (primary) hypertension Comment: On home Clonidine (PRN), Lisinopril and amlodipine. Blood pressure trending downwards, HCTZ discontinued. (2) AV block Code(s): I44.30 - UNSPECIFIED ATRIOVENTRICULAR BLOCK Status: Acute Comment: Asymptomatic 2nd degree with bradycardic episodes. s/p implantable device. Tolerated well. ECHO on 11/13/17 showed EF 50-55% Cath on 11/13/17 showed normal coronary arteries (3) Chronic pain syndrome Code(s): G89.4 - CHRONIC PAIN SYNDROME Status: Chronic Comment: Continue to de-escalate narcotic requirements. (4) Seizure Code(s): R56.9 - UNSPECIFIED CONVULSIONS Status: Acute Comment: Likely 2/2 type 2 AVB Seizure free on keppra. EEG showed no seizures. he had slightly decreased voltage and frontal fast activity. (5) Aspiration pneumonia Code(s): J69.0 - PNEUMONITIS DUE TO INHALATION OF FOOD AND VOMIT Status: Resolved Qualifiers: Laterality: unspecified laterality Comment: likely aspiration off abx without further ssx of infection likely aspiration pneumonitis (6) Acute respiratory failure with hypoxia and hypercarbia Code(s): J96.01 - ACUTE RESPIRATORY FAILURE WITH HYPOXIA; J96.02 - ACUTE RESPIRATORY FAILURE WITH HYPERCAPNIA Status: Resolved Comment: Extubated successfully 11/07/17: continue pulm support, O2 NC, BiPAP prn D/W pt need for CPAP at home for his chronic HILL Will need outpatient sleep study. - Plan cont current plan of care, plan discussed w/ family, PT/OT, social work nurse Awaiting placement. * .
[2017-11-20] MEDS: Lidocaine Patch Removal 1 EACH TOP SCH (21:24)
[2017-11-20] MEDS: Lorazepam 2 MG/ML VIAL SLOW IVP PRN (23:03)
[2017-11-21] MEDS: HYDROcodone/Acetaminophen 7.5/325 mg Tablet PO PRN ×3 (05:04→12:40)
[2017-11-21 07:46] VITALS: TEMP 97.9
[2017-11-21] MEDS: Heparin 5,000 UNITS/ML VIAL SC SCH (08:41)
[2017-11-21] MEDS: Potassium Chloride 20 MEQ TAB PO SCH (08:42)
[2017-11-21] MEDS: Senokot S 8.6-50 MG TAB PO SCH (08:43)
[2017-11-21] MEDS: Lisinopril 20 MG TAB PO SCH (08:44)
[2017-11-21] MEDS: Amlodipine 5 MG TAB PO SCH (08:45)
[2017-11-21] MEDS: levETIRAcetam 500 MG TAB PO SCH (08:45)
[2017-11-21] MEDS: Polyethylene Glycol 3350 17 GM Packet PO SCH (08:48)
[2017-11-21] MEDS: Lorazepam 2 MG/ML VIAL SLOW IVP PRN (11:04)
[2017-11-21 11:50] VITALS: BP 144/86
--- NOTE | 2017-11-21 13:23 | PDOC.PN ---
- Subjective Encounter Start Date: 11/21/17 Encounter Start Time: 11:00 Subjective: feels better -: is ambulating with rolling walker in room -: no further seizures, is fully oriented - Objective Resuscitation Status: Resuscitation Status FULL:Full Resuscitation MAR Reviewed: Yes Vital Signs & Weight: Vital Signs (12 hours) Temp Pulse Resp BP BP BP Pulse Ox 11/21/17 11:49 144/86 H 11/21/17 08:59 94 16 11/21/17 08:45 95 118/66 11/21/17 08:44 118/66 11/21/17 08:00 97.9 F 94 16 98 11/21/17 07:40 97.9 F 95 20 118/66 98 11/21/17 03:50 98.5 F 92 16 132/79 112/70 97 Weight Admit Weight 217 lb 9.5 oz Weight 208 lb Most Recent Monitor Data Heart Rate from ECG 112 NIBP 157/109 NIBP BP-Mean 122 Respiration from ECG 19 SpO2 100 I&O: 11/20/17 11/21/17 11/22/17 06:59 06:59 06:59 Intake Total 1680 1999 Balance 1680 1999 Result Diagrams: 11/19/17 05:33 11/19/17 05:33 Phys Exam - Physical Examination HEENT: PERRLA, moist MMs Neck: no JVD, supple Respiratory: no wheezing, no rales Cardiovascular: RRR, no significant murmur Gastrointestinal: soft, non-tender, positive bowel sounds Musculoskeletal: no edema, pulses present Neurological: non-focal, moves all 4 limbs Psychiatric: normal affect, A&O x 3 Dx/Plan (1) Physical deconditioning Code(s): R53.81 - OTHER MALAISE Status: Acute (2) Seizure Code(s): R56.9 - UNSPECIFIED CONVULSIONS Status: Acute Comment: Seizure free on keppra. (3) Aspiration pneumonia Code(s): J69.0 - PNEUMONITIS DUE TO INHALATION OF FOOD AND VOMIT Status: Resolved Qualifiers: Laterality: unspecified laterality Comment: likely aspiration off abx without further ssx of infection likely aspiration pneumonitis (4) Chronic pain syndrome Code(s): G89.4 - CHRONIC PAIN SYNDROME Status: Chronic (5) HTN (hypertension) Code(s): I10 - ESSENTIAL (PRIMARY) HYPERTENSION Status: Chronic Qualifiers: Hypertension type: essential hypertension Qualified Code(s): I10 - Essential (primary) hypertension Comment: On home Clonidine (PRN), Lisinopril and amlodipine. Blood pressure trending downwards, HCTZ discontinued. (6) Acute encephalopathy Code(s): G93.40 - ENCEPHALOPATHY, UNSPECIFIED Status: Resolved (7) Acute respiratory failure with hypoxia and hypercarbia Code(s): J96.01 - ACUTE RESPIRATORY FAILURE WITH HYPOXIA; J96.02 - ACUTE RESPIRATORY FAILURE WITH HYPERCAPNIA Status: Resolved Comment: Extubated successfully 11/07/17 Will need outpatient sleep study. - Plan hemo/neurostable -: has been declined for inpt rehab -: may dc home with outpt rehab -: d/w family and patient at bedside * . Review of Systems - Medications/Allergies Allergies/Adverse Reactions: Allergies Allergy/AdvReac Type Severity Reaction Status Date / Time Penicillins Allergy Verified 10/01/17 10:10 Medications: Current Medications Acetaminophen (Tylenol) 1,000 mg PO Q6H PRN PRN Reason: FEVER/MILD PAIN Last Admin: 11/09/17 16:41 Dose: 1,000 mg Acetaminophen/Codeine Phosphate (Tylenol #3) 1 tab PO Q4H PRN PRN Reason: Mild Pain (1-3) Acetaminophen/Codeine Phosphate (Tylenol #3) 2 tab PO Q4H PRN PRN Reason: Moderate Pain (4-6) Last Admin: 11/18/17 12:01 Dose: 2 tab Hydrocodone Bitart/Acetaminophen ([place] 7.5/325) 1 tab PO Q4H PRN PRN Reason: Mild Pain (1-3) Last Admin: 11/21/17 12:40 Dose: 1 tab Albuterol Sulfate (Proventil Hfa) 2 puff INH Q4H PRN PRN Reason: SOB &/or Wheezing Albuterol/Ipratropium (Duoneb) 3 ml NEB F4LV-AE STORM Last Admin: 11/21/17 08:59 Dose: 3 ml Amlodipine Besylate (Norvasc) 5 mg PO DAILY STORM Last Admin: 11/21/17 08:45 Dose: 5 mg Bisacodyl (Dulcolax) 10 mg IN DAILYPRN PRN PRN Reason: Constipation Last Admin: 11/10/17 12:55 Dose: 10 mg Clonidine (Catapres) 0.1 mg PO BID PRN PRN Reason: SBP Greater Than 170 Last Admin: 11/14/17 20:28 Dose: 0.1 mg Heparin Sodium (Porcine) (Heparin) 5,000 units SC TID [facility] Last Admin: 11/21/17 08:41 Dose: Not Given Levetiracetam (Keppra) 1,000 mg PO BID [facility] Last Admin: 11/21/17 08:45 Dose: 1,000 mg Lidocaine (Lidoderm 5% Patch) 1 patch TD DAILY [facility] Last Admin: 11/20/17 08:47 Dose: 1 patch Lisinopril (Zestril) 40 mg PO DAILY [facility] Last Admin: 11/21/17 08:44 Dose: 40 mg Lorazepam (Ativan) 1 mg SLOW IVP Q4H PRN PRN Reason: Anxiety/Agitation Last Admin: 11/21/17 11:04 Dose: 1 mg Magnesium Oxide (Magnesium Oxide) 400 mg PO BIDPRN PRN PRN Reason: FOR SERUM MAG 1.4 - 2.0 Magnesium Oxide (Magnesium Oxide) 800 mg PO PRN PRN PRN Reason: FOR SERUM MAG < 1.4 Metoclopramide HCl (Reglan) 10 mg IVP Q6H PRN PRN Reason: Nausea/Vomiting Last Admin: 11/17/17 16:45 Dose: 10 mg Miscellaneous Medication (Lidocaine Patch Removal) 1 each TOP 2100 [facility] Last Admin: 11/20/17 21:24 Dose: 1 each Nitroglycerin (Nitrostat) 0.4 mg SL Q5MIN PRN PRN Reason: Chest Pain Ccu Electrolyte (Replacement Protocol) 0 each FS PRN PRN PRN Reason: FOR ELECTROLYTE REPLACEMENT Ondansetron HCl (Zofran) 4 mg IVP Q6H PRN PRN Reason: Nausea/Vomiting Last Admin: 11/20/17 08:40 Dose: 4 mg Ondansetron HCl (Zofran Odt) 8 mg PO Q6H PRN PRN Reason: Nausea/Vomiting Last Admin: 11/12/17 08:52 Dose: 8 mg Pantoprazole Sodium (Protonix) 40 mg PO BID [facility] Last Admin: 11/21/17 08:43 Dose: 40 mg Polyethylene Glycol (Miralax) 17 gm PO DAILY [facility] Last Admin: 11/21/17 08:48 Dose: Not Given Potassium Chloride (K-Dur) 40 meq PO QAM-WM [facility] Last Admin: 11/21/17 08:42 Dose: 40 meq Senna/Docusate Sodium (Senokot S) 1 tab PO BID [facility] Last Admin: 11/21/17 08:43 Dose: 1 tab Sodium Chloride (Flush - Normal Saline) 10 ml IVF Q12HR [facility] Last Admin: 11/21/17 08:49 Dose: 10 ml Sodium Chloride (Flush - Normal Saline) 10 ml IVF PRN PRN PRN Reason: Saline Flush Last Admin: 11/17/17 13:25 Dose: 10 ml Tramadol HCl (Ultram) 50 mg PO Q6H PRN PRN Reason: Moderate Pain (4-6)
[2017-11-21] MEDS: Ondansetron HCl/PF 4 MG/2 ML Vial IVP PRN (15:00)
[2017-11-21] MEDS: Lidocaine 5% Patch TD SCH (15:16)
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
--- NOTE | 2017-11-23 16:25 | EKG ---
Test Reason : POST-OP Blood Pressure : / mmHG Vent. Rate : 086 BPM Atrial Rate : 086 BPM P-R Int : 272 ms QRS Dur : 102 ms QT Int : 378 ms P-R-T Axes : 065 059 050 degrees QTc Int : 452 ms Sinus rhythm with 1st degree A-V block Otherwise normal ECG When compared with ECG of 12-NOV-2017 12:40, No significant change was found Confirmed by Graham GREER ([id number]) on 11/23/2017 4:25:25 PM Referred By: SHERIF Confirmed By:Graham GREER
== END 2017-11-21 15:36 | disposition home or self-care (01) | DRG 853 ==
LOC: ERS 12:57 → CCU 16:03 → 2SE 11-10 20:10 → ONC 11-16 16:00
PROVIDERS: ADMIT Family Medicine; ATTEND Family Medicine
PROC: 5A1935Z Respiratory Ventilation, Less than 24 Consecutive Hours (ICD-10-PCS; principal; 2017-11-06)
PROC: 0BH17EZ Insertion of Endotracheal Airway into Trachea, Via Natural or Artificial Opening (ICD-10-PCS; 2017-11-06)
PROC: 0DJ08ZZ Inspection of Upper Intestinal Tract, Via Natural or Artificial Opening Endoscopic (ICD-10-PCS; 2017-11-10)
PROC: 0JH602Z Insertion of Monitoring Device into Chest Subcutaneous Tissue and Fascia, Open Approach (ICD-10-PCS; 2017-11-13)
PROC: 02583ZZ Destruction of Conduction Mechanism, Percutaneous Approach (ICD-10-PCS; 2017-11-13)
PROC: 4A1234Z Monitoring of Cardiac Electrical Activity, Percutaneous Approach (ICD-10-PCS; 2017-11-13)
PROC: 4A023FZ Measurement of Cardiac Rhythm, Percutaneous Approach (ICD-10-PCS; 2017-11-13)
PROC: 4A0234Z Measurement of Cardiac Electrical Activity, Percutaneous Approach (ICD-10-PCS; 2017-11-13)
PROC: 02K83ZZ Map Conduction Mechanism, Percutaneous Approach (ICD-10-PCS; 2017-11-13)
PROC: 4A023N7 Measurement of Cardiac Sampling and Pressure, Left Heart, Percutaneous Approach (ICD-10-PCS; 2017-11-13)
PROC: B2111ZZ Fluoroscopy of Multiple Coronary Arteries using Low Osmolar Contrast (ICD-10-PCS; 2017-11-13)
PROC: B2151ZZ Fluoroscopy of Left Heart using Low Osmolar Contrast (ICD-10-PCS; 2017-11-13)
DX: A41.9 Sepsis, unspecified organism (principal); G93.41 Metabolic encephalopathy; J69.0 Pneumonitis due to inhalation of food and vomit; J96.01 Acute respiratory failure with hypoxia; J96.02 Acute respiratory failure with hypercapnia; F11.23 Opioid dependence with withdrawal; R65.20 Severe sepsis without septic shock; R56.9 Unspecified convulsions; I44.1 Atrioventricular block, second degree; F41.9 Anxiety disorder, unspecified; G89.4 Chronic pain syndrome; K21.9 Gastro-esophageal reflux disease without esophagitis; R00.0 Tachycardia, unspecified; T40.2X5A Adverse effect of other opioids, initial encounter; G47.33 Obstructive sleep apnea (adult) (pediatric); I34.0 Nonrheumatic mitral (valve) insufficiency; K25.9 Gastric ulcer, unspecified as acute or chronic, without hemorrhage or perforation; Z87.891 Personal history of nicotine dependence; M19.90 Unspecified osteoarthritis, unspecified site; E87.6 Hypokalemia; K59.03 Drug induced constipation
CPT/HCPCS: 31500; 33282; 36415; 36416; 51702; 70450; 70553; 71045; 71260; 71275; 72125; 74018; 74177; 76942; 80048; 80053; 80069; 80306; 81003; 81015; 82330; 82550; 82553; 82803; 82805; 83605; 83690; 83735; 84146; 84443; 84484; 85007; 85025; 85027; 93005; 93010; 93306; 93458; 93621; 93798; 93880; 94002; 94003; 94640; 94660; 94760; 95816; 95819; 96361; 96365; 96375; 96376; J2270; A4216; C1730; C1764; C1769; C9113; G8978-GP-CK; G8978-GP-CL; G8979-GP-CI; G8979-GP-CJ; G8987-GO-CJ; G8988-GO-CH; G8996-GN-CI; G8997-GN-CH; J0360; J0692; J1644; J1953; J2001; J2060; J2250; J2405; J2550; J2704; J2765; J3010; J3370; J3480; J7050; J7620; Q0162